=== PATIENT | male | born 1960 | race Caucasian/White ===

== ENCOUNTER 2022-06-25 09:49 | Inpatient (IN) ==
[2022-06-25] MEDS ORDERED: KETOROLAC 30 MG/ML VIAL IV ONE (10:13)
[2022-06-25] MEDS ORDERED: 0.9 % SODIUM CHLORIDE 1,000 ML IV ONE (10:13)
--- NOTE | 2022-06-25 10:16 | Emergency Department Note ---
Skin/Abscess/FB HPI General Chief complaint: Skin/Abscess/Rash Stated complaint: leg infection Time Seen by Provider: 06/25/22 10:08 Source: patient Mode of arrival: ambulatory Limitations: no limitations History of Present Illness HPI Narrative: Narrative: Patient presents ED with complaints of right lower extremity redness x1 week. He reports pain that he rates 7/10. States that the redness has grown over the last couple days. He denies fever, chills, nausea, vomiting, extremity weakness, extremity numbness, lack of sensation lower extremity, pain in his calf area, pain behind his knee. Patient denies any other alleviating or aggravating factors. Related Data Allergies Allergy/AdvReac Type Severity Reaction Status Date / Time No Known Drug Allergies Allergy Verified 06/25/22 10:01 Review of Systems ROS ROS Narrative: Narrative: All systems ED: reviewed and negative except as stated. [facility] Narrative Patient History Narrative: Narrative: Medical/Surgical/Family History All Active Problems (Updated 06/25/22 @ 12:42 by Rashel Mitchell DO) Sepsis (Acute) Cellulitis of leg, right (Acute) Acute hypotension (Acute) Social History Smoking Status: Never smoker Exam Narrative Narrative: Narrative: General Limitations: no limitations General appearance: Absent in distress ENT ENT: Present normal oropharynx and mucous membranes moist Respiratory Respiratory: Present normal lung sounds bilaterally; Absent respiratory distress Cardiovascular Cardiovascular: Present regular rate and normal rhythm Adbominal Abdominal: Present soft; Absent tenderness Extremities Extremities: Present normal capillary refill Expanded Lower Extremity Leg image: 1. Erythema, warmth and tenderness to palpation with no obvious fluctuance or discharge Neurological Neurological: Present alert and oriented X3 Psychiatric Psychiatric: Present normal affect and normal mood Skin Skin: Present warm (WNL) and intact Course Course Course Narrative: Patient was evaluated for right lower extremity pain and redness. Physical exam consistent with cellulitis of the right lower extremity. X-rays were obtained of the right lower extremity with images reviewed myself to rule out osteomyelitis and it was negative for any acute bony abnormality. Patient was found to be hypotensive upon arrival. Lactic acid was elevated greater than 4. Patient was bolused IV fluids. He was given some IV Toradol and morphine for his discomfort. Chest x-ray obtained with image reviewed myself no acute c ardiopulmonary finding. Patient's white cell count was elevated and he was tachycardic upon arrival as well as hypotensive so he does meet sepsis criteria. Blood cultures were obtained the patient was given IV vancomycin and Zosyn. Due to patient being septic and hypotensive recommended be admitted to hospital for antibiotic treatment and IV fluids. Case was discussed with hospitalist who is graciously excepted patient to be admitted to the hospital. Plan of care was discussed with patient expressed verbal understanding and agreement. Consultations Consultation #1: Case discussed with hospitalist, Dr. Byers, who is graciously excepted patient to the hospital Time: 13:00 Vital Signs Vital signs: Vital Signs Temperature 97.1 F 06/25/22 09:57 Pulse Rate 92 H 06/25/22 09:57 Respiratory Rate 18 06/25/22 09:57 Blood Pressure 87/44 06/25/22 09:57 Pulse Oximetry (%) 97 06/25/22 09:57 Oxygen Delivery Method 06/25/22 09:57 Temperature 97.1 F 06/25/22 09:57 Pulse Rate 99 H 06/25/22 12:29 Respiratory Rate 18 06/25/22 09:57 Blood Pressure 92/57 06/25/22 12:01 Pulse Oximetry (%) 97 06/25/22 12:29 Oxygen Delivery Method 06/25/22 11:31 MDM MDM Narrative Medical decision making narrative: Narrative: Differential Diagnosis Differential Diagnosis: Sepsis, cellulitis, osteomyelitis Medical Records Medical records reviewed: Yes I reviewed the patient's medical records. Lab Data Lab results reviewed: Yes I reviewed the patient's lab results. Result diagrams: 06/25/22 10:20 Labs: Lab Results 06/25/22 06/25/22 06/25/22 Range/Units 10:20 10:24 10:24 WBC 21.9 H (4.5-11.0) K/mcL RBC 4.95 (4.63-6.08) M/mcL Hgb 16.7 (13.7-17.5) g/dL Hct 47.1 (40.1-51.0) % POC Hct 50.0 (41-55) MCV 95.2 (80.0-100.0) fL MCH 33.7 (26.0-34.0) pg MCHC 35.5 (31.0-36.0) g/dL RDW 11.7 (11.5-14.5) % Plt Count 115 L (140-440) K/mcL MPV 11.5 (8.8-12.5) fL Immature Gran % (Auto) 7.8 H (0.0-0.5) % Neut % (Auto) 81.8 H (38.0-78.0) % Lymph % (Auto) 2.2 L (15.5-49.0) % [place] % (Auto) 6.9 (1.0-12.0) % Eos % (Auto) 1.1 (0.0-7.0) % Baso % (Auto) 0.2 (0.0-2.0) % Lymph # (Auto) 0.49 L (1.50-4.80) K/mcL [place] # (Auto) 1.52 H (0.10-0.90) K/mcL Eos # (Auto) 0.25 (0.00-0.70) K/mcL Baso # (Auto) 0.05 (0.00-0.30) K/mcL Immature Gran # 1.72 H (0.00-0.05) K/mcl Absolute Neutrophils 17.91 H (1.80-8.00) K/mcL POC VBG pH 7.36 (7.32-7.42) POC VBG pCO2 at Temp 41.6 (41-51) POC VBG pO2 20 L (25-40) POC VBG HCO3 23.4 L (24-28) POC VBG Total CO2 25.0 (25-29) POC Venous O2 Sat 29.0 L (40-70) POC VBG Base Excess -2.0 (-2-2) VBG Lactic Acid 4.1 H* (0.5-2) POC Sodium 134 (133-145) POC Potassium 3.6 (3.3-5.1) POC Chloride 101 (96-108) POC Total CO2 24.0 (22-30) POC BUN 36 H (6-20) POC Creatinine 1.8 H (0.6-1.2) POC Glucose 166 H (70-105) POC WB Ioniz Calcium 1.01 L (1.16-1.32) Radiology Data Radiology results reviewed: Yes I reviewed the patient's radiology results. Radiology results narrative: X-ray of the right lower extremity obtained with image reviewed myself, agree with radiologist interpretation Chest x-ray obtained with image reviewed myself, I agree with radiologist interpretation EKG Data EKG #1: EKG attestation: Yes I reviewed and interpreted this EKG. 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
[2022-06-25 10:28] LABS: POC Calcium, Ionized 1.01 (1.16-1.32); POC Creatinine 1.8 (0.6-1.2); POC Potassium 3.6 (3.3-5.1)
[2022-06-25] MEDS ORDERED: 0.9 % SODIUM CHLORIDE 2,260 ML IV ONE (10:30)
[2022-06-25] MEDS ORDERED: SODIUM CHLORIDE IV ONE (10:48)
[2022-06-25 11:05] LABS: Basophils # (Auto) 0.05 K/mcL (0.00-0.30); Basophils % (Auto) 0.2 % (0.0-2.0); Eosinophils # (Auto) 0.25 K/mcL (0.00-0.70); Eosinophils % (Auto) 1.1 % (0.0-7.0); Hematocrit 47.1 % (40.1-51.0); Hemoglobin 16.7 g/dL (13.7-17.5); Lymphocytes # (Auto) 0.49 K/mcL (1.50-4.80); Lymphocytes % (Auto) 2.2 % (15.5-49.0); Mean Cell Volume 95.2 fL (80.0-100.0); Mean Corpuscular HGB Conc 35.5 g/dL (31.0-36.0); Mean Platelet Volume 11.5 fL (8.8-12.5); Monocytes # (Auto) 1.52 K/mcL (0.10-0.90); Monocytes % (Auto) 6.9 % (1.0-12.0); Platelet Count 115 K/mcL (140-440); RBC 4.95 M/mcL (4.63-6.08); Red Cell Distribution Width 11.7 % (11.5-14.5); WBC 21.9 K/mcL (4.5-11.0)
--- NOTE | 2022-06-25 11:05 | XRay Report ---
HISTORY: Cellulitis right lower leg, evaluate for osteomyelitis FINDINGS: There is a focal zone of mature cortical thickening along the medial side of the proximal shaft of the tibia. There is no associated bone erosion. This may be from prior injury. No periosteal elevation or bone erosion are present. The bones are normally mineralized. There is no fracture or destructive bone lesion. There are multiple calcified phleboliths in the calf. There is no gas in the soft tissues. IMPRESSION: No evidence of osteomyelitis Interpreted and Authenticated by: Terrence Ma 06/25/22
[2022-06-25] MEDS ORDERED: PIPERACILLIN SODIUM/TAZOBACTAM 3.375 GM in DEXTROSE 5% IN WATER 50 ML IV ONE (11:50)
[2022-06-25] MEDS ORDERED: VANCOMYCIN PER PHARMACY IV ONE (11:50)
[2022-06-25] MEDS ORDERED: fentaNYL 100 MCG/2 ML VIAL IV ONE (11:52)
[2022-06-25 11:56] LABS: Neutrophils % (Auto) 81.8 % (38.0-78.0)
[2022-06-25] MEDS ORDERED: VANCOMYCIN 1,500 MG in 0.9 % SODIUM CHLORIDE 500 ML IV ONE (12:15)
[2022-06-25] MEDS: 0.9 % SODIUM CHLORIDE 1,000 ML IV SCH ×2 (13:37→21:27)
[2022-06-25] MEDS ORDERED: SENNOSIDES 1 TABLET PO PRN (14:09)
[2022-06-25] MEDS ORDERED: LACTULOSE 20 GM/30 ML ORAL.SOL PO PRN (14:09)
[2022-06-25] MEDS ORDERED: ONDANSETRON 4 MG/2 ML VIAL IV PRN (14:09)
[2022-06-25] MEDS: LACTATED RINGERS 1,000 ML IV SCH ×2 (14:13→22:17)
--- NOTE | 2022-06-25 14:15 | Internal Med History&Physical ---
HPI History of Present Illness Patient information: Note initiated : 06/25/22 at 2:11 pm Service Date, if different from initiated Date: [] Patient: Jaxon Gross a 62 y/o M admitted on 06/25/22 for leg infection. Chief Complaint: [RLE pain, swelling] Chief complaint: RLE pain, cellulitis History of present illness: Mr. Gross is a 62 year old M with no significant past medical history presents to the hospital with 1 week of worsening right lower extremity pain, erythema and swelling. The patient states that he went to urgent care clinic last Friday and was diagnosed with suspected shingles as they may have seen crusting vesicles. He was not prescribed antiviral or antibiotic therapy. The patient states that he continued to experience erythema, swelling and pain which he believed was worsening. The site was near the ankle around the medial calf area. The patient was quite lethargic however was unable to sleep most days due to severe pain. The patient has not been eating or drinking much. He decided to come to the ER for further management and evaluation. On arrival he was hemodynamically tenuous and afebrile. He was found to have a heart rate of 129 and a blood pressure as low as 87/68. In terms of his lab work, his white blood cell count was 22,000, lactic acid was 4.1, and creatinine was 1.8. The hospitalist service was asked admit the patient for further management and evaluation of his sepsis due to right lower extremity cellulitis. Review of Systems All systems: reviewed and no additional remarkable complaints except as stated Constitutional Constitutional: Present as per HPI EENT Eyes: Present as per HPI; Absent blurry vision Cardiovascular Cardiovascular: Present as per HPI; Absent chest pain, dyspnea, dyspnea on exertion, leg edema or palpatations Respiratory Respiratory: Present as per HPI; Absent cough, dyspnea, dyspnea on exertion, wheezing or stridor Gastrointestinal Gastrointestinal: Present as per HPI; Absent abdominal pain, diarrhea, dysphagia, hematemesis, melena, nausea or vomiting Musculoskeletal Musculoskeletal: Present as per HPI; Absent joint swelling, limited range of motion, muscle cramps, muscle weakness or myalgias Integumentary Integumentary: Present as per HPI; Absent erythema, new lesions, rash or wounds Neurological Neurological: Present as per HPI; Absent abnormal gait, behavioral changes, focal weakness, headache(s), loss of vision, numbness, sensory deficit or syncope Endocrine Endocrine: Absent change in body appearance, fatigue or heat intolerance Hematologic/Lymphatic Hematologic/Lymphatic: Present as per HPI PFSH PFSH All Active Problems (Updated 06/25/22 @ 14:19 by Karon Byers MD) Hyperglycemia (Acute) Lactic acidosis (Acute) SVETLANA (acute kidney injury) (Acute) Sepsis (Acute) Cellulitis of leg, right (Acute) Acute hypotension (Acute) Social History smoking status: Never smoker MEDS/ALLERGIES Home Medications and Allergies Home Medications Medication Instructions Recorded Confirmed Type ibuprofen 200 mg capsule 800 mg PO Q8H PRN Pain 06/25/22 06/25/22 History Allergies Allergy/AdvReac Type Severity Reaction Status Date / Time No Known Drug Allergies Allergy Verified 06/25/22 10:01 EXAM Constitutional Vitals: Temp Pulse Resp BP Pulse Ox O2 Del Method 97.1 F 99 H 18 92/57 97 06/25/22 09:57 06/25/22 12:29 06/25/22 09:57 06/25/22 12:01 06/25/22 12:29 06/25/22 11:31 General appearance: average body habitus Head Head exam: Present atraumatic, normal inspection and normocephalic Eye Eye exam: Present EOMI, normal appearance and PERRL; Absent conjunctival injection ENT ENT exam: Present normal exam; Absent mucous membranes dry Neck Neck exam: Present full ROM; Absent lymphadenopathy Respiratory Respiratory exam: Present normal respiratory exam and CTAB; Absent decreased diomedes ath sounds, respiratory distress or wheezes Cardiovascular Cardiovascular exam: Present normal rate and rhythm and RRR; Absent JVD GI/Abdominal GI/Abdominal exam: Present normal bowel sounds and soft; Absent diminished bowel sounds, distended, guarding, mass, rebound or tenderness Neurological Exam Neurological exam: Present alert, CN II-XII intact and oriented X3 Psychiatric Psychiatric exam: Present normal affect and normal mood Skin Skin exam: Present intact and warm; Absent erythema, pallor, petechiae or rash DATA Data Completed and Pending Labs: Labs from last 24 hours 06/25/22 06/25/22 06/25/22 10:24 10:24 10:20 WBC 21.9 H RBC 4.95 Hgb 16.7 Hct 47.1 POC Hct 50.0 MCV 95.2 MCH 33.7 MCHC 35.5 RDW 11.7 Plt Count 115 L MPV 11.5 Immature Gran % (Auto) 7.8 H Neut % (Auto) 81.8 H Lymph % (Auto) 2.2 L [place] % (Auto) 6.9 Eos % (Auto) 1.1 Baso % (Auto) 0.2 Lymph # (Auto) 0.49 L [place] # (Auto) 1.52 H Eos # (Auto) 0.25 Baso # (Auto) 0.05 Immature Gran # 1.72 H Absolute Neutrophils 17.91 H POC VBG pH 7.36 POC VBG pCO2 at Temp 41.6 POC VBG pO2 20 L POC VBG HCO3 23.4 L POC VBG Total CO2 25.0 POC Venous O2 Sat 29.0 L POC VBG Base Excess -2.0 VBG Lactic Acid 4.1 H* POC Sodium 134 POC Potassium 3.6 POC Chloride 101 POC Total CO2 24.0 POC BUN 36 H POC Creatinine 1.8 H POC Glucose 166 H POC WB Ioniz Calcium 1.01 L A/P Assessment and plan (1) Sepsis: Status: Acute Qualifiers: Sepsis acute organ dysfunction status: without acute organ dysfunction Sepsis type: sepsis due to unspecified organism Qualified Code(s): A41.9 - Sepsis, unspecified organism (2) Cellulitis of leg, right: Status: Acute (3) Acute hypotension: Status: Acute (4) SVETLANA (acute kidney injury): Status: Acute (5) Lactic acidosis: Status: Acute (6) Hyperglycemia: Status: Acute Sepsis Sepsis Identified: Yes Time Zero: In ER Narrative A/P Narrative: The patient's right lower extremity will be demarcated and we will follow her closely. At this time we will continue aggressive IV fluid resuscitation and repeat as lactic acid. The patient was given a dose of vancomycin in the ER and we will start Zosyn. We will send for an MRSA screen and check blood cultures. The patient will be monitored on telemetry. Time Spent With Patient Time: Total time spent is greater than 50% in coordination of care (as documented) at patient's floor/unit and/or counseling patient: Initial: Total time with patient: 55 - 74 minutes
[2022-06-25] MEDS: 0.9 % SODIUM CHLORIDE 10 ML SYRINGE IV SCH ×2 (14:23→22:00)
--- NOTE | 2022-06-25 15:47 | XRay Report ---
HISTORY: Sepsis FINDINGS: There is a vague streaky opacity above the left diaphragm which could be a small area of pneumonia. Remainder of the lung chowdhury are clear. The heart size is normal. No adenopathy is detected. There is no pleural effusion. IMPRESSION: Small left lower lobe infiltrate Interpreted and Authenticated by: Terrence Ma 06/25/22
[2022-06-25] MEDS: oxyCODONE/APAP 5/325MG TABLET PO PRN ×2 (17:10→21:02)
[2022-06-25 17:20] LABS: Blood Urea Nitrogen 37 mg/dL (8-23); Calcium 7.9 mg/dL (8.6-10.4); Carbon Dioxide 24 mmol/L (22-30); Chloride 99 mmol/L (96-108); Glomerular Filtration Rate 58; Glucose 182 mg/dL (70-105)
[2022-06-25] MEDS: ACETAMINOPHEN 325 MG TABLET PO PRN (19:46)
[2022-06-25] MEDS: DOCUSATE SODIUM 100 MG CAPSULE PO SCH (19:52)
[2022-06-25] MEDS: PIPERACILLIN SODIUM/TAZOBACTAM 3.375 GM in DEXTROSE 5% IN WATER 50 ML IV SCH (21:26)
[2022-06-25 23:22] LABS: Blood Urea Nitrogen 37 mg/dL (8-23); Calcium 7.6 mg/dL (8.6-10.4); Carbon Dioxide 22 mmol/L (22-30); Chloride 100 mmol/L (96-108); Glomerular Filtration Rate 58; Glucose 183 mg/dL (70-105)
[2022-06-26] MEDS: LACTATED RINGERS 1,000 ML IV SCH ×4 (04:47→21:34)
[2022-06-26] MEDS: oxyCODONE/APAP 5/325MG TABLET PO PRN ×3 (04:48→23:37)
[2022-06-26] MEDS: PIPERACILLIN SODIUM/TAZOBACTAM 3.375 GM in DEXTROSE 5% IN WATER 50 ML IV SCH ×3 (05:39→21:26)
[2022-06-26] MEDS: 0.9 % SODIUM CHLORIDE 10 ML SYRINGE IV SCH ×3 (05:40→23:57)
[2022-06-26 06:06] LABS: Erythrocyte Sedimentation Rate > 130 mm/hr (0-20)
[2022-06-26 06:15] LABS: ALT/SGPT 160 U/L (<40); AST/SGOT 43 U/L (<40); Albumin/Globulin Ratio 0.7 (1.0-2.3); Alkaline Phosphatase 156 U/L (39-117); Bilirubin,Direct 1.7 mg/dL (<0.3); Bilirubin,Total 1.9 mg/dL (0.1-1.0); Blood Urea Nitrogen 32 mg/dL (8-23); Calcium 7.5 mg/dL (8.6-10.4); Carbon Dioxide 21 mmol/L (22-30); Chloride 101 mmol/L (96-108); Globulin 2.9 gm/dL (2.2-3.7); Glomerular Filtration Rate 49; Glucose 140 mg/dL (70-105); Lactate Dehydrogenase 144 U/L (135-225); Phosphorous 1.8 mg/dL (2.5-4.5); Triglycerides 186 mg/dL (<150); Uric Acid 4.8 mg/dL (2.5-8.0)
[2022-06-26 06:47] LABS: Basophils # (Auto) 0.12 K/mcL (0.00-0.30); Basophils % (Auto) 0.6 % (0.0-2.0); Eosinophils # (Auto) 0.28 K/mcL (0.00-0.70); Eosinophils % (Auto) 1.5 % (0.0-7.0); Hemoglobin 14.4 g/dL (13.7-17.5); Lymphocytes # (Auto) 0.62 K/mcL (1.50-4.80); Lymphocytes % (Auto) 3.3 % (15.5-49.0); Mean Corpuscular HGB Conc 35.1 g/dL (31.0-36.0); Mean Platelet Volume 11.9 fL (8.8-12.5); Monocytes # (Auto) 0.83 K/mcL (0.10-0.90); Monocytes % (Auto) 4.5 % (1.0-12.0); Neutrophils % (Auto) 88.3 % (38.0-78.0); Platelet Count 75 K/mcL (140-440); RBC 4.27 M/mcL (4.63-6.08); Red Cell Distribution Width 12.3 % (11.5-14.5); WBC 18.6 K/mcL (4.5-11.0)
[2022-06-26] MEDS: ENOXAPARIN 40 MG/0.4 ML SYRINGE SQ SCH (08:36)
[2022-06-26] MEDS: DOCUSATE SODIUM 100 MG CAPSULE PO SCH ×3 (08:36→21:27)
--- NOTE | 2022-06-26 10:16 | Internal Med Progress Note ---
SUBJECTIVE Subjective Patient information: Note initiated : 06/26/22 at 10:13 am Service Date, if different from initiated Date: [] Patient: Jaxon Gross 62 y/o M admitted on 06/25/22 for leg infection. Chief Complaint: [RLE swelling, erythema, pain] Principal diagnosis: Sepsis Interval history: The patient was resting comfortably in bed. He was eating breakfast. He was alert, oriented and fully conversant. He states that his lower extremity pain has improved. Discussed the case with the RN who was present at the bedside. Constitutional Vitals: Vital Signs Temp Pulse Resp BP Pulse Ox O2 Del Method 99.8 F H 103 H 23 H 96/65 99 06/26/22 07:19 06/26/22 09:01 06/26/22 09:01 06/26/22 09:01 06/26/22 09:01 06/26/22 09:01 Period Temp Pulse Resp BP Sys/Nj Pulse Ox O2 Del Method O2 Flow Rate Last 24 Hr 97.9 F-101.2 F 48-129 14-27 75-129/49-71 90-100 Room Air-Room Air Intake and Output 06/25/22 06/26/22 06/26/22 19:59 03:59 11:59 Intake Total 1952 1666 2080 Output Total 260 475 Balance 1693 1667 1605 Weight 81.647 kg 83.779 kg Intake & Output: Intake & Output 06/25/22 06/26/22 06/26/22 19:59 03:59 11:59 Intake Total 1952 1667 2080 Output Total 260 475 Balance 1693 1667 1605 Weight 81.647 kg 83.779 kg Intake: IV 2973 227 6266 Sodium Chloride 0.9% 1,260 ml @ 1260 Wide Open IV BOLUS ONE Rx#: [id number] Lactated Ringers 1,000 ml @ 150 058 162 4844 mls/hr IV .Q6H40M SISSY Rx#: [id number] Zosyn 3.375 gm In Dextrose 5% 50 50 50 in Water 50 ml @ 100 mls/hr IV Q8H SISSY Rx#:[id number] Vancomycin 1,500 mg In Sodium 500 Chloride 0.9% 500 ml @ 333.3 mls/hr IV ONCE ONE Rx#: [id number] Oral 760 480 Output: Void Amount 260 475 Other: Meal Dinner Breakfast Percent of Meal Consumed 50% 100% Feeding Ability Independent Urine Appearance Clear Clear Urine Color Dark Yellow Dark Lisa Head Head exam: Present atraumatic and normal inspection Eye Eye exam: Present normal appearance ENT ENT exam: Present mucous membranes moist, normal exam and normal external ear exam Neck Neck exam: Present normal inspection Respiratory Respiratory exam: Present normal respiratory exam Cardiovascular Cardiovascular exam: Present normal rate and rhythm GI/Abdominal GI/Abdominal exam: Present normal bowel sounds Back Exam Back exam: Present normal inspection Neurological Exam Neurological exam: Present alert and oriented X3 Skin Skin exam: Present intact and warm OBJ DATA Labs CBC & Chem 7: 06/26/22 05:11 06/26/22 05:11 Labs: Abnormal Lab Results 06/26/22 06/26/22 06/25/22 05:11 05:11 22:16 WBC 18.6 H RBC 4.27 L Plt Count 75 L Immature Gran % (Auto) 1.8 H Neut % (Auto) 88.3 H Lymph % (Auto) 3.3 L Lymph # (Auto) 0.62 L [place] # (Auto) Immature Gran # 0.33 H Absolute Neutrophils 16.39 H ESR > 130 H POC VBG pO2 POC VBG HCO3 POC VBG Total CO2 POC Venous O2 Sat POC VBG Base Excess VBG Lactic Acid Sodium 131 L 130 L Potassium 3.1 L Carbon Dioxide 21 L POC BUN BUN 32 H 37 H Creatinine 1.5 H 1.3 H POC Creatinine Glucose 140 H 183 H POC Glucose Calcium 7.5 L 7.6 L POC WB Ioniz Calcium Phosphorus 1.8 L Total Bilirubin 1.9 H Direct Bilirubin 1.7 H GGT 197 H AST 43 H ALT 160 H Alkaline Phosphatase 156 H Total Protein 4.9 L Albumin 2.0 L Albumin/Globulin Ratio 0.7 L Triglycerides 186 H 06/25/22 06/25/22 06/25/22 14:22 12:26 10:24 WBC RBC Plt Count Immature Gran % (Auto) Neut % (Auto) Lymph % (Auto) Lymph # (Auto) [place] # (Auto) Immature Gran # Absolute Neutrophils ESR POC VBG pO2 20 L POC VBG HCO3 22.6 L POC VBG Total CO2 24.0 L POC Venous O2 Sat 30.0 L POC VBG Base Excess -3.0 L VBG Lactic Acid 2.3 H 2.2 H Sodium Potassium Carbon Dioxide POC BUN 36 H BUN 37 H Creatinine 1.3 H POC Creatinine 1.8 H Glucose 182 H POC Glucose 166 H Calcium 7.9 L POC WB Ioniz Calcium 1.01 L Phosphorus Total Bilirubin Direct Bilirubin GGT AST ALT Alkaline Phosphatase Total Protein Albumin Albumin/Globulin Ratio Triglycerides 06/25/22 06/25/22 10:24 10:20 WBC 21.9 H RBC Plt Count 115 L Immature Gran % (Auto) 7.8 H Neut % (Auto) 81.8 H Lymph % (Auto) 2.2 L Lymph # (Auto) 0.49 L [place] # (Auto) 1.52 H Immature Gran # 1.72 H Absolute Neutrophils 17.91 H ESR POC VBG pO2 20 L POC VBG HCO3 23.4 L POC VBG Total CO2 POC Venous O2 Sat 29.0 L POC VBG Base Excess VBG Lactic Acid 4.1 H* Sodium Potassium Carbon Dioxide POC BUN BUN Creatinine POC Creatinine Glucose POC Glucose Calcium POC WB Ioniz Calcium Phosphorus Total Bilirubin Direct Bilirubin GGT AST ALT Alkaline Phosphatase Total Protein Albumin Albumin/Globulin Ratio Triglycerides Meds: Medications Acetaminophen (Acetaminophen 325 Mg Tablet) 650 mg PO Q6HP PRN; Protocol PRN Reason: Per Pain Protocol/Fever > 101 Last Admin: 06/25/22 19:46 Dose: 650 mg Docusate Sodium (Docusate Sodium 100 Mg Capsule) 100 mg PO BID [facility] Last Admin: 06/26/22 08:36 Dose: Not Given Enoxaparin Sodium (Enoxaparin 40 Mg/0.4 Ml Syringe) 40 mg SQ DAILY [facility] Last Admin: 06/26/22 08:36 Dose: 40 mg Lactated Ringer's (Lactated Ringers) 1,000 mls @ 150 mls/hr IV .Q6H40M [facility] Last Infusion: 06/26/22 08:37 Dose: 100 mls/hr Piperacillin Sod/Tazobactam (Sod 3.375 gm/ Dextrose) 50 mls @ 100 mls/hr IV Q8H [facility]; Protocol Last Infusion: 06/26/22 06:23 Dose: Infused Lactulose (Lactulose 20 Gm/30 Ml Oral.Gilda) 10 gm PO DAILYP PRN PRN Reason: Constipation Ondansetron HCl (Ondansetron 4 Mg/2 Ml Vial) 4 mg IV Q4HP PRN; Protocol PRN Reason: Nausea And Vomiting Oxycodone/Acetaminophen (Oxycodone/Apap 5/325mg Tablet) 1 tab PO Q4HP PRN; Protocol PRN Reason: Per Pain Protocol Last Admin: 06/26/22 04:48 Dose: 1 tab Senna (Sennosides 1 Tablet) 2 tab PO HSP PRN PRN Reason: Constipation Sodium Chloride (0.9 % Sodium Chloride 10 Ml Syringe) 10 ml IV Q8 [facility] Last Admin: 06/26/22 05:40 Dose: 10 ml A/P Assessment and plan (1) Sepsis: Status: Acute Qualifiers: Sepsis acute organ dysfunction status: without acute organ dysfunction Sepsis type: sepsis due to unspecified organism Qualified Code(s): A41.9 - Sepsis, unspecified organism (2) Cellulitis of leg, right: Status: Acute (3) Acute hypotension: Status: Acute (4) SVETLANA (acute kidney injury): Status: Acute (5) Lactic acidosis: Status: Acute (6) Hyperglycemia: Status: Acute Narrative A/P Narrative: The patient's right lower extremity will be demarcated and we will follow her closely. At this time we will continue aggressive IV fluid resuscitation and repeat as lactic acid. The patient was given a dose of vancomycin in the ER and we will start Zosyn. We will send for an MRSA screen and check blood cultures. The patient will be monitored on telemetry. 06/26: In terms of the patient's sepsis, his lactic acid has come down from 4.1- 1.6. The rate of IV fluids will be decreased today. His blood pressure has improved and was 118/63 this morning. He continues to have fevers with a T-max of 101.2. He remains tachycardic. Blood cultures are pending. His white blood cell count has come down slightly to 18.6. Continue vancomycin and cefepime. On examination, the leg appears less edematous, erythematous and does not is tender to touch. It is still quite warm to touch. The patient's SVETLANA is also improving slowly as his creatinine is down to 1.5. Time Spent With Patient Time: Total time spent is greater than 50% in coordination of care (as documented) at patient's floor/unit and/or counseling patient: Subsequent: Total time with patient: 35 - 49 minutes
--- NOTE | 2022-06-26 16:08 | EKG ---
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 Measurements Intervals [place] Rate: 94 P: 62 DC: 190 QRS: -46 QRSD: 102 T: 79 QT: 373 QTc: 467 Interpretive Statements Sinus rhythm Delayed R wave progression Electronically Signed On 06-26-2022 16:08:20 PST by Rich Mo D.O. /[id number]/[email or web address]/[id number]
[2022-06-26] MEDS: ACETAMINOPHEN 325 MG TABLET PO PRN (16:36)
[2022-06-26] MEDS ORDERED: morphine 2 MG/ML VIAL ONE (19:01)
[2022-06-26] MEDS: morphine 2 MG/ML VIAL IV ONE ×2 (19:03→19:12)
[2022-06-26] MEDS ORDERED: DIGOXIN 500 MCG/2 ML AMPUL IV ONE ×2 (19:18→19:34)
[2022-06-26] MEDS ORDERED: METOPROLOL TARTRATE 5 MG/5 ML VIAL IV ONE ×4 (19:18→23:56)
[2022-06-26 20:33] LABS: Phosphorous 1.3 mg/dL (2.5-4.5)
[2022-06-26] MEDS ORDERED: METOPROLOL SUCCINATE 25 MG TAB.XL.24H PO ONE (21:18)
[2022-06-26] MEDS ORDERED: SODIUM PHOSPHATE 30 MMOL in DEXTROSE 5% IN WATER 500 ML IV ONE (21:18)
[2022-06-26] MEDS: CLINDAMYCIN 150 MG CAPSULE PO SCH (21:26)
[2022-06-27] MEDS ORDERED: DIGOXIN 500 MCG/2 ML AMPUL IV ONE ×2 (01:43→01:51)
[2022-06-27] MEDS: LACTATED RINGERS 1,000 ML IV SCH (04:29)
[2022-06-27] MEDS: CLINDAMYCIN 150 MG CAPSULE PO SCH (05:30)
[2022-06-27] MEDS: 0.9 % SODIUM CHLORIDE 10 ML SYRINGE IV SCH ×3 (05:30→20:36)
[2022-06-27] MEDS: PIPERACILLIN SODIUM/TAZOBACTAM 3.375 GM in DEXTROSE 5% IN WATER 50 ML IV SCH (05:30)
[2022-06-27] MEDS: oxyCODONE/APAP 5/325MG TABLET PO PRN ×3 (05:30→20:35)
[2022-06-27 06:03] LABS: Basophils # (Auto) 0.11 K/mcL (0.00-0.30); Basophils % (Auto) 0.5 % (0.0-2.0); Eosinophils # (Auto) 0.57 K/mcL (0.00-0.70); Eosinophils % (Auto) 2.7 % (0.0-7.0); Hematocrit 38.3 % (40.1-51.0); Hemoglobin 13.4 g/dL (13.7-17.5); Lymphocytes # (Auto) 1.59 K/mcL (1.50-4.80); Lymphocytes % (Auto) 7.5 % (15.5-49.0); Monocytes # (Auto) 0.64 K/mcL (0.10-0.90); Neutrophils % (Auto) 83.3 % (38.0-78.0); Platelet Count 80 K/mcL (140-440); RBC 4.03 M/mcL (4.63-6.08); Red Cell Distribution Width 12.3 % (11.5-14.5); WBC 21.3 K/mcL (4.5-11.0)
[2022-06-27 06:08] LABS: Blood Urea Nitrogen 32 mg/dL (8-23); Calcium 7.4 mg/dL (8.6-10.4); Carbon Dioxide 22 mmol/L (22-30); Chloride 99 mmol/L (96-108); Glomerular Filtration Rate 53; Glucose 144 mg/dL (70-105)
[2022-06-27] MEDS ORDERED: POTASSIUM CHLORIDE 20 MEQ TABLET PO ONE (07:40)
[2022-06-27] MEDS ORDERED: LIDOCAINE 2% URO-JET 10 ML JEL.PF.APP UR ONE (07:43)
[2022-06-27] MEDS: DOCUSATE SODIUM 100 MG CAPSULE PO SCH ×3 (08:58→21:11)
[2022-06-27] MEDS: ENOXAPARIN 40 MG/0.4 ML SYRINGE SQ SCH (08:59)
[2022-06-27] MEDS: DIGOXIN 125 MCG TABLET PO SCH ×2 (08:59→14:22)
[2022-06-27] MEDS: METOPROLOL SUCCINATE 25 MG TAB.XL.24H PO SCH ×2 (08:59→20:35)
--- NOTE | 2022-06-27 09:22 | Cat Scan Report ---
History: Bacteremia, elevated white blood cell count, leg infection technique: The patient was imaged without contrast in axial plane at 2.5 mm intervals from above the thoracic inlet through the symphysis pubis. Sagittal and coronal reformats were created along with axial MIPS images of the chest. The radiation exposure was limited using dose reduction technology. FINDINGS: CHEST: There are very small bilateral layering pleural effusions. There is moderate consolidation in both lung bases, predominantly involving the posterior basal segments. There are bands of consolidated tissue in the inferior segment lingula and thin linear bands of scar or discoid atelectasis posteriorly in both upper lobes. There is no evidence of an abscess or empyema. There is no emphysema. Trachea and bronchi are normal. The heart size is within normal limits. There is a focal calcification in the left anterior descending coronary artery. Aorta is normal in caliber. Abdomen and pelvis: Evaluation of abdominal organs without contrast is somewhat limited. The liver and spleen are normal in size and homogeneous. The gallbladder appears normal with no calcified stones or thickening of the wall. The bile ducts are nondilated. There is no apparent mass or inflammation the pancreas. The adrenals are normal and symmetric. There is stranding of the perirenal fat bilaterally. The kidneys appear normal, without evidence of mass, cyst stone or hydronephrosis. Right kidney is smaller than the left. This is a chronic stable finding, unchanged from prior ultrasound done in 2005. The bowel pattern is normal without evidence of inflammation or obstruction. There are couple noninflamed diverticula in the sigmoid colon. There is nonspecific stranding of the fat in the region of the paracolic gutters. There is no abscess or ascites. No enlarged lymph nodes are present. Urinary bladder is decompressed by Forrester catheter. Small fat-containing right inguinal hernia seen. There is no entrapment of bowel. Severe degenerative disc disease and arthritis are present throughout the lumbar spine and lower thoracic spine. IMPRESSION: Infiltrates in both lung bases which may be a combination of atelectasis and pneumonia. Very small bilateral pleural effusions. Stranding of the fat in the retroperitoneum. This is nonspecific and may be from prior episodes of inflammation or scar. There is no evidence of acute infection within the abdomen or pelvis. Interpreted and Authenticated by: Terrence Ma 06/27/22
--- NOTE | 2022-06-27 11:47 | Infectious Disease Consult ---
Telemedicine Intake Consent for assessment and treatment to occur via virtual technology obtained from: Patient Location of Provider: Home Patient location: Intensive Care Unit Any recent travel (within the last 21 days)?: No HPI Date of Consult Consult Date: 06/27/22 Requesting physician: Karon Byers Consult Narrative Patient Information: Note initiated : 06/27/22 at 11:45 am Service Date, if different from initiated Date: [] Patient: Jaxon Gross 62 y/o M admitted on 06/25/22 for leg infection. Chief Complaint: [] 62-year-old without insulin past medical history presented to emergency room with 5 days history of right lower extremity swelling, pain. Patient noted some blister and erythema and pain of his right leg above the ankle, fever 1 week ago. He saw his primary care physician who diagnosed him with shingles and give him some steroid. However he worsened and came to the emergency room on 06/25. In the ED he was febrile, tachycardic and hypotensive. Creatinine was 1.8, WBC was 21. Patient was started on Zosyn and clindamycin. Blood culture is now positive for streptococcus pyogenes. Patient remained febrile with WBC initially improved and now worsened. For this reason ID is consulted. Patient at this time has a temperature of 100.8, tachycardic with a flutter. He is on 2 L nasal cannula Chief complaint: Leg pain Reason for consult: Bacteremia cc:: CC: Karon Byers MD Review of Systems All systems: reviewed and no additional remarkable complaints except as stated PFSH PFSH All Active Problems (Updated 06/25/22 @ 14:19 by Karon Byers MD) Hyperglycemia (Acute) Lactic acidosis (Acute) SVETLANA (acute kidney injury) (Acute) Sepsis (Acute) Cellulitis of leg, right (Acute) Acute hypotension (Acute) Social History smoking status: Never smoker MEDS/ALLERGIES Home Medications and Allergies Home Medications Medication Instructions Recorded Confirmed Type ibuprofen 200 mg capsule 800 mg PO Q8H PRN Pain 06/25/22 06/26/22 History melatonin 10 mg PO QHS PRN Insomnia 06/25/22 06/26/22 History prednisone 20 mg tablet 3 tab PO QDAY 06/25/22 06/26/22 History Allergies Allergy/AdvReac Type Severity Reaction Status Date / Time No Known Drug Allergies Allergy Verified 06/26/22 06:45 Physical Examination Vital Signs Vital signs: Temp Pulse Resp BP Pulse Ox O2 Del Method O2 Flow Rate 100.8 F H 78 23 H 104/49 97 2 06/27/22 11:01 06/27/22 11:01 06/27/22 11:01 06/27/22 11:01 06/27/22 11:01 06/27/22 11:01 06/27/22 11:01 Constitutional General appearance: no acute distress Respiratory Effort: normal Cardiovascular Cardiovascular: regular rate and rhythm Extremities Extremities: other (Left leg with 1+ edema. Right neck with 2-3+ edema, erythema mostly on the medial aspect of the leg extending from the heel to the thigh. The erythema has receded from the line drawn in the emergency room. There is necrotic skin on the medial aspect of the leg above the ankle. There is no crepit) Additional Exam Additional exam: Inguinal lymphadenopathy Results Laboratory Findings CBC and BMP: 06/27/22 05:22 06/27/22 05:22 Abnormal lab findings: Abnormal Labs 06/25/22 06/25/22 06/25/22 10:20 10:24 10:24 WBC 21.9 H RBC Hgb Hct Plt Count 115 L Immature Gran % (Auto) 7.8 H Neut % (Auto) 81.8 H Lymph % (Auto) 2.2 L Lymph # (Auto) 0.49 L Braxton # (Auto) 1.52 H Immature Gran # 1.72 H Absolute Neutrophils 17.91 H ESR POC VBG pO2 20 L POC VBG HCO3 23.4 L POC VBG Total CO2 POC Venous O2 Sat 29.0 L POC VBG Base Excess VBG Lactic Acid 4.1 H* Sodium Potassium Carbon Dioxide POC BUN 36 H BUN Creatinine POC Creatinine 1.8 H Glucose POC Glucose 166 H Calcium POC WB Ioniz Calcium 1.01 L Phosphorus Total Bilirubin Direct Bilirubin GGT AST ALT Alkaline Phosphatase Total Protein Albumin Albumin/Globulin Ratio Triglycerides 06/25/22 06/25/22 06/25/22 12:26 14:22 22:16 WBC RBC Hgb Hct Plt Count Immature Gran % (Auto) Neut % (Auto) Lymph % (Auto) Lymph # (Auto) Braxton # (Auto) Immature Gran # Absolute Neutrophils ESR POC VBG pO2 20 L POC VBG HCO3 22.6 L POC VBG Total CO2 24.0 L POC Venous O2 Sat 30.0 L POC VBG Base Excess -3.0 L VBG Lactic Acid 2.2 H 2.3 H Sodium 130 L Potassium 3.1 L Carbon Dioxide POC BUN BUN 37 H 37 H Creatinine 1.3 H 1.3 H POC Creatinine Glucose 182 H 183 H POC Glucose Calcium 7.9 L 7.6 L POC WB Ioniz Calcium Phosphorus Total Bilirubin Direct Bilirubin GGT AST ALT Alkaline Phosphatase Total Protein Albumin Albumin/Globulin Ratio Triglycerides 06/26/22 06/26/22 06/26/22 05:11 05:11 19:39 WBC 18.6 H RBC 4.27 L Hgb Hct Plt Count 75 L Immature Gran % (Auto) 1.8 H Neut % (Auto) 88.3 H Lymph % (Auto) 3.3 L Lymph # (Auto) 0.62 L Braxton # (Auto) Immature Gran # 0.33 H Absolute Neutrophils 16.39 H ESR > 130 H POC VBG pO2 POC VBG HCO3 POC VBG Total CO2 POC Venous O2 Sat POC VBG Base Excess VBG Lactic Acid Sodium 131 L Potassium Carbon Dioxide 21 L POC BUN BUN 32 H Creatinine 1.5 H POC Creatinine Glucose 140 H POC Glucose Calcium 7.5 L POC WB Ioniz Calcium Phosphorus 1.8 L 1.3 L Total Bilirubin 1.9 H Direct Bilirubin 1.7 H GGT 197 H AST 43 H ALT 160 H Alkaline Phosphatase 156 H Total Protein 4.9 L Albumin 2.0 L Albumin/Globulin Ratio 0.7 L Triglycerides 186 H 06/27/22 06/27/22 05:22 05:22 WBC 21.3 H RBC 4.03 L Hgb 13.4 L Hct 38.3 L Plt Count 80 L Immature Gran % (Auto) 3.0 H Neut % (Auto) 83.3 H Lymph % (Auto) 7.5 L Lymph # (Auto) Braxton # (Auto) Immature Gran # 0.64 H Absolute Neutrophils 17.73 H ESR POC VBG pO2 POC VBG HCO3 POC VBG Total CO2 POC Venous O2 Sat POC VBG Base Excess VBG Lactic Acid Sodium 131 L Potassium 3.0 L Carbon Dioxide POC BUN BUN 32 H Creatinine 1.4 H POC Creatinine Glucose 144 H POC Glucose Calcium 7.4 L POC WB Ioniz Calcium Phosphorus Total Bilirubin Direct Bilirubin GGT AST ALT Alkaline Phosphatase Total Protein Albumin Albumin/Globulin Ratio Triglycerides Microbiology: Microbiology 06/25/22 10:28 Blood Blood Culture - Preliminary 06/25/22 10:25 Blood Blood Culture - Preliminary Strep pyogenes (grp a) 06/25/22 14:10 Nose - Both Right and Left MRSA (PCR) - Final A/P Sepsis Sepsis Identified: Yes Time Zero: admission Narrative A/P Narrative: 62-year-old with no past medical history presented now with sepsis due to Streptococcus pyogenes bacteremia, cellulitis. Concern for possible fasciitis. Change antibiotic to penicillin and clindamycin IV. CT of the right leg stat. Consider surgical consultation Time Spent With Patient Time: Total time spent is greater than 50% in coordination of care (as documented) at patient's floor/unit and/or counseling patient: Initial: Total time with patient: Less than 40 minutes
[2022-06-27] MEDS: ACETAMINOPHEN 325 MG TABLET PO PRN ×2 (12:12→20:37)
[2022-06-27] MEDS ORDERED: IOPAMIDOL 100 ML BOTTLE IV ONE (12:41)
--- NOTE | 2022-06-27 12:51 | Cat Scan Report ---
History: Infection right lower leg, evaluate for fasciitis TECHNIQUE: Following injection of intravenous nonionic contrast the patient was imaged from above the knee to the bottom of the foot at 2.5 mm intervals. Sagittal and coronal reformats were created. The radiation exposure was limited using dose reduction technology. FINDINGS: There is moderate edema/inflammation adjacent to the deep fascia along the anterior and medial side of the right calf. There is thickening of the overlying skin. This extends from along the medial side of the knee to below the level of the ankle. No abscess is present. The underlying muscles appear normal without evidence of edema or myositis. There are a few varicosities along the medial side of the vazquez. Below the level of the knee the greater saphenous vein is thrombosed. Above the knee the saphenous vein is patent. There is no evidence of osteomyelitis. There is a focal area of mature cortical thickening along the medial side of the proximal tibia. This was seen on the recent x-ray and is unchanged. There is a small joint effusion in the knee. The ankle is noninflamed. IMPRESSION: Moderate cellulitis and edema along the medial side of the right lower leg with associated thrombophlebitis of the distal portion of the greater saphenous vein. No evidence of abscess or osteomyelitis No evidence of compartment syndrome Interpreted and Authenticated by: Terrence Ma 06/27/22
[2022-06-27] MEDS: CLINDAMYCIN IN 0.9 % SOD CHLOR 600 MG/50 ML BAG IV SCH ×2 (12:59→21:30)
[2022-06-27] MEDS ORDERED: CLINDAMYCIN 600 MG/50 ML NS BAG IV SCH (13:00)
[2022-06-27] MEDS: PENICILLIN G POTASSIUM 4,000,000 UNIT in 0.9 % SODIUM CHLORIDE 50 ML IV SCH ×3 (13:00→20:34)
[2022-06-27] MEDS ORDERED: POTASSIUM CHLORIDE 20 MEQ TABLET PO SCH (13:35)
--- NOTE | 2022-06-27 13:35 | Internal Med Progress Note ---
SUBJECTIVE Subjective Patient information: Note initiated : 06/27/22 at 1:31 pm Service Date, if different from initiated Date: [] Patient: Jaxon Gross 62 y/o M admitted on 06/25/22 for leg infection. Chief Complaint: [RLE swelling, erythema] Principal diagnosis: Sepsis Interval history: Overnight, the patient had issues with tachyarrhythmia and was found to have atrial fibrillation with RVR. He was loaded with digoxin, and given several doses of Lopressor 5 mg IV. He was given one-time dose of Toprol-XL 12.5 mg p .o. x1. This morning, he was resting comfortably in bed. He was pleasant, calm and cooperative. He had no active complaints. RN was present at the bedside to discuss plan of care. Constitutional Vitals: Vital Signs Temp Pulse Resp BP Pulse Ox O2 Del Method O2 Flow Rate 101.2 F H 152 H 20 106/52 94 2 06/27/22 13:01 06/27/22 12:46 06/27/22 13:01 06/27/22 13:01 06/27/22 13:01 06/27/22 13:01 06/27/22 13:01 Period Temp Pulse Resp BP Sys/Nj Pulse Ox O2 Del Method O2 Flow Rate Last 24 Hr 97.4 F-101.4 F 50-161 13-33 86-128/46-76 92-100 Nasal Cannula- Room Air 1.5-2 Intake and Output 06/27/22 06/27/22 06/27/22 03:59 11:59 19:59 Intake Total 1085 1252 Output Total 300 530 65 Balance 785 722 -65 Weight 83.263 kg Intake & Output: Intake & Output 06/27/22 06/27/22 06/27/22 03:59 11:59 19:59 Intake Total 1085 1252 Output Total 300 530 65 Balance 785 722 -65 Weight 83.263 kg Intake: IV 885 1252 Lactated Ringers 1,000 ml @ 150 835 692 mls/hr IV .[id number] [facility] Rx#: [id number] Zosyn 3.375 gm In Dextrose 5% 50 50 in Water 50 ml @ 100 mls/hr IV Q8H [facility] Rx#:[id number] Sodium Phosphate 30 Mmol In 510 Dextrose 5% in Water 500 ml @ 85 mls/hr IV ONCE ONE Rx#: [id number] Oral 200 Output: Urine Catheter Amount 380 65 Void Amount 300 150 Other: Urine Appearance Clear Clear Uretheral (Forrester) Clear Urine Color Dark Yellow Dark Yellow Uretheral (Forrester) Dark Yellow Blood Tinged Urine Odor Normal Uretheral (Forrester) Normal Stool Size Small Small Stool Color Brown Brown Stool Consistency Soft Head Head exam: Present atraumatic and normal inspection Eye Eye exam: Present normal appearance ENT ENT exam: Present mucous membranes moist, normal exam and normal external ear exam Neck Neck exam: Present normal inspection Respiratory Respiratory exam: Present normal respiratory exam Cardiovascular Cardiovascular exam: Present irregular rhythm and tachycardia GI/Abdominal GI/Abdominal exam: Present normal bowel sounds Back Exam Back exam: Present normal inspection Neurological Exam Neurological exam: Present alert and oriented X3 Skin Skin exam: Present intact and warm OBJ DATA Labs CBC & Chem 7: 06/27/22 05:22 06/27/22 05:22 Labs: Abnormal Lab Results 06/27/22 06/27/22 06/26/22 05:22 05:22 19:39 WBC 21.3 H RBC 4.03 L Hgb 13.4 L Hct 38.3 L Plt Count 80 L Immature Gran % (Auto) 3.0 H Neut % (Auto) 83.3 H Lymph % (Auto) 7.5 L Lymph # (Auto) Mcminn # (Auto) Immature Gran # 0.64 H Absolute Neutrophils 17.73 H ESR POC VBG pO2 POC VBG HCO3 POC VBG Total CO2 POC Venous O2 Sat POC VBG Base Excess VBG Lactic Acid Sodium 131 L Potassium 3.0 L Carbon Dioxide POC BUN BUN 32 H Creatinine 1.4 H POC Creatinine Glucose 144 H POC Glucose Calcium 7.4 L POC WB Ioniz Calcium Phosphorus 1.3 L Total Bilirubin Direct Bilirubin GGT AST ALT Alkaline Phosphatase Total Protein Albumin Albumin/Globulin Ratio Triglycerides 06/26/22 06/26/22 06/25/22 05:11 05:11 22:16 WBC 18.6 H RBC 4.27 L Hgb Hct Plt Count 75 L Immature Gran % (Auto) 1.8 H Neut % (Auto) 88.3 H Lymph % (Auto) 3.3 L Lymph # (Auto) 0.62 L Mcminn # (Auto) Immature Gran # 0.33 H Absolute Neutrophils 16.39 H ESR > 130 H POC VBG pO2 POC VBG HCO3 POC VBG Total CO2 POC Venous O2 Sat POC VBG Base Excess VBG Lactic Acid Sodium 131 L 130 L Potassium 3.1 L Carbon Dioxide 21 L POC BUN BUN 32 H 37 H Creatinine 1.5 H 1.3 H POC Creatinine Glucose 140 H 183 H POC Glucose Calcium 7.5 L 7.6 L POC WB Ioniz Calcium Phosphorus 1.8 L Total Bilirubin 1.9 H Direct Bilirubin 1.7 H GGT 197 H AST 43 H ALT 160 H Alkaline Phosphatase 156 H Total Protein 4.9 L Albumin 2.0 L Albumin/Globulin Ratio 0.7 L Triglycerides 186 H 06/25/22 06/25/22 06/25/22 14:22 12:26 10:24 WBC RBC Hgb Hct Plt Count Immature Gran % (Auto) Neut % (Auto) Lymph % (Auto) Lymph # (Auto) Mcminn # (Auto) Immature Gran # Absolute Neutrophils ESR POC VBG pO2 20 L POC VBG HCO3 22.6 L POC VBG Total CO2 24.0 L POC Venous O2 Sat 30.0 L POC VBG Base Excess -3.0 L VBG Lactic Acid 2.3 H 2.2 H Sodium Potassium Carbon Dioxide POC BUN 36 H BUN 37 H Creatinine 1.3 H POC Creatinine 1.8 H Glucose 182 H POC Glucose 166 H Calcium 7.9 L POC WB Ioniz Calcium 1.01 L Phosphorus Total Bilirubin Direct Bilirubin GGT AST ALT Alkaline Phosphatase Total Protein Albumin Albumin/Globulin Ratio Triglycerides 06/25/22 06/25/22 10:24 10:20 WBC 21.9 H RBC Hgb Hct Plt Count 115 L Immature Gran % (Auto) 7.8 H Neut % (Auto) 81.8 H Lymph % (Auto) 2.2 L Lymph # (Auto) 0.49 L Mcminn # (Auto) 1.52 H Immature Gran # 1.72 H Absolute Neutrophils 17.91 H ESR POC VBG pO2 20 L POC VBG HCO3 23.4 L POC VBG Total CO2 POC Venous O2 Sat 29.0 L POC VBG Base Excess VBG Lactic Acid 4.1 H* Sodium Potassium Carbon Dioxide POC BUN BUN Creatinine POC Creatinine Glucose POC Glucose Calcium POC WB Ioniz Calcium Phosphorus Total Bilirubin Direct Bilirubin GGT AST ALT Alkaline Phosphatase Total Protein Albumin Albumin/Globulin Ratio Triglycerides Meds: Medications Acetaminophen (Acetaminophen 325 Mg Tablet) 650 mg PO Q6HP PRN; Protocol PRN Reason: Per Pain Protocol/Fever > 101 Last Admin: 06/27/22 12:12 Dose: 650 mg Digoxin (Digoxin 125 Mcg Tablet) 125 mcg PO DAILY@1400 [facility] Last Admin: 06/27/22 08:59 Dose: 125 mcg Docusate Sodium (Docusate Sodium 100 Mg Capsule) 100 mg PO BID [facility] Last Admin: 06/27/22 08:58 Dose: 100 mg Enoxaparin Sodium (Enoxaparin 40 Mg/0.4 Ml Syringe) 40 mg SQ DAILY [facility] Last Admin: 06/27/22 08:59 Dose: 40 mg Penicillin G Potassium 4,000, (000 unit/ Sodium Chloride) 58 mls @ 100 mls/hr IV Q4H [facility]; Protocol Last Admin: 06/27/22 13:00 Dose: 100 mls/hr CLINDAMYCIN IN 0.9 % SOD CHLOR (Clindamycin 600 Mg/50 Ml-Ns) 600 mg in 50 mls @ 100 mls/hr IV Q8H [facility] Last Admin: 06/27/22 12:59 Dose: 100 mls/hr Lactulose (Lactulose 20 Gm/30 Ml Oral.Gilda) 10 gm PO DAILYP PRN PRN Reason: Constipation Metoprolol Succinate (Metoprolol Succinate 25 Mg Tab.Xl.24h) 12.5 mg PO BID [facility] Last Admin: 06/27/22 08:59 Dose: 12.5 mg Ondansetron HCl (Ondansetron 4 Mg/2 Ml Vial) 4 mg IV Q4HP PRN; Protocol PRN Reason: Nausea And Vomiting Oxycodone/Acetaminophen (Oxycodone/Apap 5/325mg Tablet) 1 tab PO Q4HP PRN; Protocol PRN Reason: Per Pain Protocol Last Admin: 06/27/22 12:56 Dose: 1 tab Senna (Sennosides 1 Tablet) 2 tab PO HSP PRN PRN Reason: Constipation Sodium Chloride (0.9 % Sodium Chloride 10 Ml Syringe) 10 ml IV Q8 [facility] Last Admin: 06/27/22 05:30 Dose: 10 ml A/P Assessment and plan (1) Sepsis: Status: Acute Qualifiers: Sepsis acute organ dysfunction status: without acute organ dysfunction Sepsis type: sepsis due to unspecified organism Qualified Code(s): A41.9 - Sepsis, unspecified organism (2) Cellulitis of leg, right: Status: Acute (3) Acute hypotension: Status: Acute (4) SVETLANA (acute kidney injury): Status: Acute (5) Lactic acidosis: Status: Acute (6) Hyperglycemia: Status: Acute Narrative A/P Narrative: The patient's right lower extremity will be demarcated and we will follow her closely. At this time we will continue aggressive IV fluid resuscitation and repeat as lactic acid. The patient was given a dose of vancomycin in the ER and we will start Zosyn. We will send for an MRSA screen and check blood cultures. The patient will be monitored on telemetry. 06/26: In terms of the patient's sepsis, his lactic acid has come down from 4.1- 1.6. The rate of IV fluids will be decreased today. His blood pressure has improved and was 118/63 this morning. He continues to have fevers with a T-max of 101.2. He remains tachycardic. Blood cultures are pending. His white blood cell count has come down slightly to 18.6. Continue vancomycin and cefepime. On examination, the leg appears less edematous, erythematous and does not is tender to touch. It is still quite warm to touch. The patient's SVETLANA is also improving slowly as his creatinine is down to 1.5. 06/27: Blood cultures were positive for streptococcal pyogenes. The patient remains tachycardic with SVT. His white blood cell count went back up to 21.3 and he continues to have fevers. Most recently his temp was 101.2. Telemetry infectious disease were consulted. They de-escalated Zosyn to penicillin. IV clindamycin was continued. Repeat CT of the lower extremity reveals moderate cellulitis with no underlying abscess. It did reveal thrombophlebitis. We will continue low-dose of Toprol-XL and digoxin 125 mcg p.o. daily. In terms of his [id number] 2 score, he he does not meet criteria for full anticoagulation. Time Spent With Patient Time: Total time spent is greater than 50% in coordination of care (as documented) at patient's floor/unit and/or counseling patient: Subsequent: Total time with patient: 35 - 49 minutes Critical Care Time: Yes
--- NOTE | 2022-06-27 14:19 | Urology Consult Note ---
HPI Date of Consult Consult Date: 06/27/22 Requesting physician: Karon Byers Consult Narrative Patient Information: Note initiated : 06/27/22 at 2:17 pm Service Date, if different from initiated Date: [] Patient: Jaxon Gross 62 y/o M admitted on 06/25/22 for leg infection. Chief Complaint: [Gross hematuria] Jaxon is a 62 year old male who was admitted to the hospital through the ER with a 1 week history of worsening right lower extremity pain, erythema and swelling. On admission he was found to be septic with tachycardia and hypotension. His white blood cell count was 22,000 and serum creatinine was 1.8. During admission his white blood cell count has remained elevated and climbing and he has not been improving as expected. Telehealth ID consult was obtained. He was diagnosed with Streptococcus pyogenes bacteremia and cellulitis with concern for possible fasciitis. His antibiotic was changed to to penicillin and clindamycin. CT of the right leg was recommended as well as surgical consultation. CT of the right lower extremity was obtained and revealed moderate cellulitis and edema along the medial side of the right lower leg with associated thrombophlebitis of the distal portion of the greater saphenous vein. In the chest abdomen and pelvis was also obtained. From a urologic standpoint this revealed that kidneys appeared normal, without evidence of mass, cyst stone or hydronephrosis. The right kidney was smaller than the left. This was reported to be a chronic stable finding, unchanged from prior ultrasound done in 2004. Additionally, there was stranding of the fat in the retroperitoneum. This was said to be a nonspecific finding and may be from prior episodes of inflamm ation or scar. There was no evidence of acute infection within the abdomen or pelvis. Yesterday it was reported that the patient began straining to urinate after straining he had an episode of gross hematuria. 16 Vietnamese Forrester catheter was easily placed and initially drained urine which has cleared over the past day urine is currently clear and yellow. In speaking with the patient he reports that he did not have any difficulty with urination or any urinary problems prior to this hospital admission. He had an episode of gross hematuria when he was a child but has not had any recent gross hematuria. He denies any history of smoking. He denies any other significant medical problems. He does not take any medications at home. He has no known allergies. Due to the gross hematuria urology consultation was requested. Chief complaint: Gross hematuria Reason for consult: Gross hematuria cc:: CC: Karon Byers MD Review of Systems All systems: reviewed and no additional remarkable complaints except as stated Constitutional Constitutional: Present fatigue, lethargy, malaise and weakness Genitourinary Genitourinary: as per HPI, change in urinary stream and difficulty urinating Musculoskeletal Musculoskeletal: Present as per HPI Integumentary Integumentary: Present erythema, skin pain and swelling PFSH PFSH All Active Problems (Updated 06/27/22 @ 14:31 by Shay Reese MD) Incomplete bladder emptying (Acute) Gross hematuria (Acute) BPH loc w urin obs/LUTS (Acute) Sepsis (Acute) Cellulitis of leg, right (Acute) Acute hypotension (Acute) SVETLANA (acute kidney injury) (Acute) Lactic acidosis (Acute) Hyperglycemia (Acute) Social History smoking status: Never smoker MEDS/ALLERGIES Home Medications and Allergies Home Medications Medication Instructions Recorded Confirmed Type ibuprofen 200 mg capsule 800 mg PO Q8H PRN Pain 06/25/22 06/26/22 History melatonin 10 mg PO QHS PRN Insomnia 06/25/22 06/26/22 History prednisone 20 mg tablet 3 tab PO QDAY 06/25/22 06/26/22 History Allergies Allergy/AdvReac Type Severity Reaction Status Date / Time No Known Drug Allergies Allergy Verified 06/26/22 06:45 Physical Examination Vital Signs Vital signs: Temp Pulse Resp BP Pulse Ox O2 Del Method O2 Flow Rate 100.7 F H 96 H 29 H 88/49 93 2 06/27/22 14:02 06/27/22 14:02 06/27/22 14:02 06/27/22 14:02 06/27/22 14:02 06/27/22 14:02 06/27/22 12:46 General physical appearance General physical exam: well developed, well nourished and no distress Head Head exam IM: Present atraumatic, normal inspection and normocephalic Neck Neck exam: trachea midline Cardiovascular Cardiovascular exam IM: Present normal rate and rhythm Respiratory Respiratory exam: normal respiratory effort and clear to auscultation Abdomen Abdomen: Present soft and non tender Musculoskeletal Musculoskeletal: Present other (Unable to evaluate as the patient is lying in bed in the ICU) Psychiatric Psychiatric: Present oriented to time, oriented to person, oriented to place and speech is normal Results Labs Result diagrams: 06/27/22 05:22 06/27/22 05:22 Labs: Abnormal lab results 06/26/22 06/27/22 06/27/22 Range/Units 19:39 05:22 05:22 WBC 21.3 H (4.5-11.0) K/mcL RBC 4.03 L (4.63-6.08) M/mcL Hgb 13.4 L (13.7-17.5) g/dL Hct 38.3 L (40.1-51.0) % Plt Count 80 L (140-440) K/mcL Immature Gran % (Auto) 3.0 H (0.0-0.5) % Neut % (Auto) 83.3 H (38.0-78.0) % Lymph % (Auto) 7.5 L (15.5-49.0) % Immature Gran # 0.64 H (0.00-0.05) K/mcl Absolute Neutrophils 17.73 H (1.80-8.00) K/mcL Sodium 131 L (133-145) mmol/L Potassium 3.0 L (3.3-5.1) mmol/L BUN 32 H (8-23) mg/dL Creatinine 1.4 H (0.7-1.2) mg/dL Glucose 144 H (70-105) mg/dL Calcium 7.4 L (8.6-10.4) mg/dL Phosphorus 1.3 L (2.5-4.5) mg/dL Diabetes panel 06/27/22 Range/Units 05:22 Sodium 131 L (133-145) mmol/L Potassium 3.0 L (3.3-5.1) mmol/L Chloride 99 (96-108) mmol/L Carbon Dioxide 22 (22-30) mmol/L BUN 32 H (8-23) mg/dL Creatinine 1.4 H (0.7-1.2) mg/dL Glucose 144 H (70-105) mg/dL Calcium 7.4 L (8.6-10.4) mg/dL Calcium panel 06/26/22 06/27/22 06/27/22 Range/Units 19:39 05:22 05:22 Calcium 7.4 L (8.6-10.4) mg/dL Phosphorus 1.3 L 2.9 (2.5-4.5) mg/dL Pituitary panel 06/27/22 Range/Units 05:22 Sodium 131 L (133-145) mmol/L Potassium 3.0 L (3.3-5.1) mmol/L Chloride 99 (96-108) mmol/L Carbon Dioxide 22 (22-30) mmol/L BUN 32 H (8-23) mg/dL Creatinine 1.4 H (0.7-1.2) mg/dL Glucose 144 H (70-105) mg/dL Calcium 7.4 L (8.6-10.4) mg/dL Adrenal panel 06/27/22 Range/Units 05:22 Sodium 131 L (133-145) mmol/L Potassium 3.0 L (3.3-5.1) mmol/L Chloride 99 (96-108) mmol/L Carbon Dioxide 22 (22-30) mmol/L BUN 32 H (8-23) mg/dL Creatinine 1.4 H (0.7-1.2) mg/dL Glucose 144 H (70-105) mg/dL Calcium 7.4 L (8.6-10.4) mg/dL All other labs normal. Imaging CT scan - abdomen: report reviewed and image reviewed CT scan - chest: report reviewed CT scan - pelvis: report reviewed and image reviewed Additional studies: Report of CT of the right lower extremity reviewed A/P Assessment and plan (1) BPH loc w urin obs/LUTS: Status: Acute (2) Gross hematuria: Status: Acute (3) Incomplete bladder emptying: Status: Acute Narrative A/P Narrative: Jaxon is a 62-year-old male with no prior significant medical problems. He was admitted to the hospital with right lower extremity cellulitis and sepsis. Despite treatment with antibiotics his symptoms have not resolved and his white blood cell count is rising. He has no history of prior urinary symptoms. Yesterday, however, he felt the need to strain to urinate. Postvoid residual was obtained and was 200 mL by bladder scan. He then had an episode of gross hematuria and a 16 Vietnamese Forrester catheter was easily placed. The urine was initially red but then cleared. Today the urine is clear and yellow. Urology consultation was obtained. The patient has never been a smoker. He had a CT of the chest abdomen and pelvis without contrast once he is recovered if his renal function allows we should obtain a CT IVP. Once he recovers and as an outpatient we will perform an office cystoscopy for further evaluation. We will also obtain urine for cytology as an outpatient in the office. Once the patient recovers his Forrester catheter should be removed prior to discharge. If he is unable to urinate it should be replaced. If his hematuria recurs please reconsult us. At the time being we will sign off and follow-up with him as an outpatient. Time Spent With Patient Time: Total time spent is greater than 50% in coordination of care (as documented) at patient's floor/unit and/or counseling patient:
[2022-06-27] MEDS ORDERED: PHENobarb/HYOSCY/ATROPINE/SCOP 1 DOSE BOTTLE PO PRN (17:02)
[2022-06-28] MEDS: PENICILLIN G POTASSIUM 4,000,000 UNIT in 0.9 % SODIUM CHLORIDE 50 ML IV SCH ×6 (01:14→21:34)
[2022-06-28] MEDS: CLINDAMYCIN IN 0.9 % SOD CHLOR 600 MG/50 ML BAG IV SCH ×3 (05:02→21:06)
[2022-06-28] MEDS: 0.9 % SODIUM CHLORIDE 10 ML SYRINGE IV SCH ×3 (05:03→21:34)
[2022-06-28 06:51] LABS: Basophils # (Auto) 0.12 K/mcL (0.00-0.30); Basophils % (Auto) 0.6 % (0.0-2.0); Eosinophils # (Auto) 0.34 K/mcL (0.00-0.70); Eosinophils % (Auto) 1.6 % (0.0-7.0); Hematocrit 38.2 % (40.1-51.0); Hemoglobin 13.1 g/dL (13.7-17.5); Lymphocytes # (Auto) 2.73 K/mcL (1.50-4.80); Mean Cell Volume 98.5 fL (80.0-100.0); Mean Corpuscular HGB Conc 34.3 g/dL (31.0-36.0); Mean Platelet Volume 11.1 fL (8.8-12.5); Monocytes # (Auto) 0.64 K/mcL (0.10-0.90); Monocytes % (Auto) 3.1 % (1.0-12.0); Neutrophils % (Auto) 77.5 % (38.0-78.0); Platelet Count 80 K/mcL (140-440); RBC 3.88 M/mcL (4.63-6.08); Red Cell Distribution Width 13.2 % (11.5-14.5); WBC 20.8 K/mcL (4.5-11.0)
[2022-06-28 07:20] LABS: ALT/SGPT 60 U/L (<40); AST/SGOT 24 U/L (<40); Albumin 1.8 gm/dL (3.2-5.2); Albumin/Globulin Ratio 0.5 (1.0-2.3); Alkaline Phosphatase 137 U/L (39-117); Bilirubin,Total 1.6 mg/dL (0.1-1.0); Blood Urea Nitrogen 22 mg/dL (8-23); Calcium 7.6 mg/dL (8.6-10.4); Carbon Dioxide 23 mmol/L (22-30); Chloride 103 mmol/L (96-108); Globulin 3.6 gm/dL (2.2-3.7); Glomerular Filtration Rate 80; Glucose 112 mg/dL (70-105)
[2022-06-28 07:53] LABS: Lymphocytes % (Auto) 13.2 % (15.5-49.0)
[2022-06-28] MEDS: DOCUSATE SODIUM 100 MG CAPSULE PO SCH ×2 (08:56→20:11)
[2022-06-28] MEDS: ENOXAPARIN 40 MG/0.4 ML SYRINGE SQ SCH (09:00)
[2022-06-28] MEDS: oxyCODONE/APAP 5/325MG TABLET PO PRN ×3 (09:01→17:17)
[2022-06-28] MEDS: METOPROLOL SUCCINATE 25 MG TAB.XL.24H PO SCH ×2 (09:01→21:33)
--- NOTE | 2022-06-28 09:53 | EKG ---
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 Possibly atrial flutter INTRAVENTRICULAR CONDUCTION DELAY with morphologic features of LBBB Electronically Signed On 06-28-2022 9:52:44 PST by Zaire Mcwilliams /store/M0/[id number]
--- NOTE | 2022-06-28 09:55 | EKG ---
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
--- NOTE | 2022-06-28 10:19 | Internal Med Progress Note ---
SUBJECTIVE Subjective Patient information: Note initiated : 06/28/22 at 10:16 am Service Date, if different from initiated Date: [] Patient: Jaxon Gross 62 y/o M admitted on 06/25/22 for leg infection. Chief Complaint: [RLE swelling, pain, erythema] Principal diagnosis: Sepsis Interval history: The patient is looking and feeling better today. He continues to spike fevers continuously. He has no active complaints or concerns. Discussed plan of care with the nurse who was present at the bedside. Constitutional Vitals: Vital Signs Temp Pulse Resp BP Pulse Ox O2 Del Method O2 Flow Rate 100.7 F H 91 H 18 133/70 92 2 06/28/22 10:00 06/28/22 10:00 06/28/22 10:00 06/28/22 10:00 06/28/22 10:00 06/28/22 10:00 06/27/22 12:46 Period Temp Pulse Resp BP Sys/Nj Pulse Ox O2 Del Method O2 Flow Rate Last 24 Hr 100.1 F-101.2 F 75-152 11-35 88-152/46-82 88-100 Nasal Cannula-Room Air 2-2 Intake and Output 06/27/22 06/28/22 06/28/22 19:59 03:59 11:59 Intake Total 2516 166 908 Output Total 545 738 324 Balance 1970 Weight 86.806 kg Intake & Output: Intake & Output 06/27/22 06/28/22 06/28/22 19:59 03:59 11:59 Intake Total 2516 166 908 Output Total 545 738 324 Balance 1970 Weight 86.806 kg Intake: Nourishment/Supplement quantity 150 (ml) IV 1166 166 108 Lactated Ringers 1,000 ml @ 150 1000 mls/hr IV .[id number] S[facility] Rx#: [id number] Pfizerpen 4,000,000 Unit In 116 116 58 Sodium Chloride 0.9% 50 ml @ 100 mls/hr IV Q4H SISSY Rx#: [id number] Oral 1200 800 Output: Urine Catheter Amount 545 738 324 Other: Meal Lunch 400 Percent of Meal Consumed Refused Feeding Ability Independent Urine Appearance Clear Clear Clear Uretheral (Forrester) Clear Urine Color Dark Yellow Dark Yellow Dark Yellow Uretheral (Forrester) Dark Yellow Dark Yellow Light Lisa Urine Odor Normal Normal Stool Size Large Large Stool Color Brown Brown Stool Consistency Liquid Liquid # Bowel Movements 1 2 # of times incontinent of 1 Bowels Head Head exam: Present atraumatic and normal inspection Eye Eye exam: Present normal appearance ENT ENT exam: Present mucous membranes moist, normal exam and normal external ear exam Neck Neck exam: Present normal inspection Respiratory Respiratory exam: Present normal respiratory exam Cardiovascular Cardiovascular exam: Present normal rate and rhythm GI/Abdominal GI/Abdominal exam: Present normal bowel sounds Back Exam Back exam: Present normal inspection Neurological Exam Neurological exam: Present alert and oriented X3 Skin Skin exam: Present intact and warm OBJ DATA Labs CBC & Chem 7: 06/28/22 06:03 06/28/22 06:03 Labs: Abnormal Lab Results 06/28/22 06/28/22 06/27/22 06:03 06:03 05:22 WBC 20.8 H RBC 3.88 L Hgb 13.1 L Hct 38.2 L Plt Count 80 L Immature Gran % (Auto) 4.0 H Neut % (Auto) Lymph % (Auto) 13.2 L Lymph # (Auto) Christian # (Auto) Immature Gran # 0.84 H Absolute Neutrophils 16.09 H ESR POC VBG pO2 POC VBG HCO3 POC VBG Total CO2 POC Venous O2 Sat POC VBG Base Excess VBG Lactic Acid Sodium 131 L Potassium 3.0 L Carbon Dioxide POC BUN BUN 32 H Creatinine 1.4 H POC Creatinine Glucose 112 H 144 H POC Glucose Calcium 7.6 L 7.4 L POC WB Ioniz Calcium Phosphorus Total Bilirubin 1.6 H Direct Bilirubin GGT AST ALT 60 H Alkaline Phosphatase 137 H Total Protein 5.4 L Albumin 1.8 L Albumin/Globulin Ratio 0.5 L Triglycerides 06/27/22 06/26/22 06/26/22 05:22 19:39 05:11 WBC 21.3 H RBC 4.03 L Hgb 13.4 L Hct 38.3 L Plt Count 80 L Immature Gran % (Auto) 3.0 H Neut % (Auto) 83.3 H Lymph % (Auto) 7.5 L Lymph # (Auto) Christian # (Auto) Immature Gran # 0.64 H Absolute Neutrophils 17.73 H ESR POC VBG pO2 POC VBG HCO3 POC VBG Total CO2 POC Venous O2 Sat POC VBG Base Excess VBG Lactic Acid Sodium 131 L Potassium Carbon Dioxide 21 L POC BUN BUN 32 H Creatinine 1.5 H POC Creatinine Glucose 140 H POC Glucose Calcium 7.5 L POC WB Ioniz Calcium Phosphorus 1.3 L 1.8 L Total Bilirubin 1.9 H Direct Bilirubin 1.7 H GGT 197 H AST 43 H ALT 160 H Alkaline Phosphatase 156 H Total Protein 4.9 L Albumin 2.0 L Albumin/Globulin Ratio 0.7 L Triglycerides 186 H 06/26/22 06/25/22 06/25/22 05:11 22:16 14:22 WBC 18.6 H RBC 4.27 L Hgb Hct Plt Count 75 L Immature Gran % (Auto) 1.8 H Neut % (Auto) 88.3 H Lymph % (Auto) 3.3 L Lymph # (Auto) 0.62 L Christian # (Auto) Immature Gran # 0.33 H Absolute Neutrophils 16.39 H ESR > 130 H POC VBG pO2 POC VBG HCO3 POC VBG Total CO2 POC Venous O2 Sat POC VBG Base Excess VBG Lactic Acid 2.3 H Sodium 130 L Potassium 3.1 L Carbon Dioxide POC BUN BUN 37 H 37 H Creatinine 1.3 H 1.3 H POC Creatinine Glucose 183 H 182 H POC Glucose Calcium 7.6 L 7.9 L POC WB Ioniz Calcium Phosphorus Total Bilirubin Direct Bilirubin GGT AST ALT Alkaline Phosphatase Total Protein Albumin Albumin/Globulin Ratio Triglycerides 06/25/22 06/25/22 06/25/22 12:26 10:24 10:24 WBC RBC Hgb Hct Plt Count Immature Gran % (Auto) Neut % (Auto) Lymph % (Auto) Lymph # (Auto) Christian # (Auto) Immature Gran # Absolute Neutrophils ESR POC VBG pO2 20 L 20 L POC VBG HCO3 22.6 L 23.4 L POC VBG Total CO2 24.0 L POC Venous O2 Sat 30.0 L 29.0 L POC VBG Base Excess -3.0 L VBG Lactic Acid 2.2 H 4.1 H* Sodium Potassium Carbon Dioxide POC BUN 36 H BUN Creatinine POC Creatinine 1.8 H Glucose POC Glucose 166 H Calcium POC WB Ioniz Calcium 1.01 L Phosphorus Total Bilirubin Direct Bilirubin GGT AST ALT Alkaline Phosphatase Total Protein Albumin Albumin/Globulin Ratio Triglycerides 06/25/22 10:20 WBC 21.9 H RBC Hgb Hct Plt Count 115 L Immature Gran % (Auto) 7.8 H Neut % (Auto) 81.8 H Lymph % (Auto) 2.2 L Lymph # (Auto) 0.49 L Christian # (Auto) 1.52 H Immature Gran # 1.72 H Absolute Neutrophils 17.91 H ESR POC VBG pO2 POC VBG HCO3 POC VBG Total CO2 POC Venous O2 Sat POC VBG Base Excess VBG Lactic Acid Sodium Potassium Carbon Dioxide POC BUN BUN Creatinine POC Creatinine Glucose POC Glucose Calcium POC WB Ioniz Calcium Phosphorus Total Bilirubin Direct Bilirubin GGT AST ALT Alkaline Phosphatase Total Protein Albumin Albumin/Globulin Ratio Triglycerides Meds: Medications Acetaminophen (Acetaminophen 325 Mg Tablet) 650 mg PO Q6HP PRN; Protocol PRN Reason: Per Pain Protocol/Fever > 101 Last Admin: 06/27/22 20:37 Dose: 650 mg Belladonna/Phenobarbital (Phenobarb/Hyoscy/Atropine/Scop 1 Dose Bottle) 1 dose PO Q4HP PRN PRN Reason: Dyspepsia Last Admin: 06/27/22 17:16 Dose: 1 dose Digoxin (Digoxin 125 Mcg Tablet) 125 mcg PO DAILY@1400 [facility] Last Admin: 06/27/22 14:22 Dose: Not Given Docusate Sodium (Docusate Sodium 100 Mg Capsule) 100 mg PO BID [facility] Last Admin: 06/28/22 08:56 Dose: Not Given Enoxaparin Sodium (Enoxaparin 40 Mg/0.4 Ml Syringe) 40 mg SQ DAILY [facility] Last Admin: 06/28/22 09:00 Dose: 40 mg Penicillin G Potassium 4,000, (000 unit/ Sodium Chloride) 58 mls @ 100 mls/hr IV Q4H [facility]; Protocol Stop: 06/29/22 03:00 Last Admin: 06/28/22 09:00 Dose: 100 mls/hr CLINDAMYCIN IN 0.9 % SOD CHLOR (Clindamycin 600 Mg/50 Ml-Ns) 600 mg in 50 mls @ 100 mls/hr IV Q8H [facility] Last Infusion: 06/28/22 05:51 Dose: Infused Ceftriaxone Sodium 2 gm/ (Dextrose) 50 mls @ 100 mls/hr IV Q24H [facility] Lactulose (Lactulose 20 Gm/30 Ml Oral.Gilda) 10 gm PO DAILYP PRN PRN Reason: Constipation Metoprolol Succinate (Metoprolol Succinate 25 Mg Tab.Xl.24h) 12.5 mg PO BID [facility] Last Admin: 06/28/22 09:01 Dose: 12.5 mg Ondansetron HCl (Ondansetron 4 Mg/2 Ml Vial) 4 mg IV Q4HP PRN; Protocol PRN Reason: Nausea And Vomiting Oxycodone/Acetaminophen (Oxycodone/Apap 5/325mg Tablet) 1 tab PO Q4HP PRN; Protocol PRN Reason: Per Pain Protocol Last Admin: 06/28/22 09:01 Dose: 1 tab Senna (Sennosides 1 Tablet) 2 tab PO HSP PRN PRN Reason: Constipation Sodium Chloride (0.9 % Sodium Chloride 10 Ml Syringe) 10 ml IV Q8 [facility] Last Admin: 06/28/22 05:03 Dose: 10 ml A/P Assessment and plan (1) Sepsis: Status: Acute Qualifiers: Sepsis acute organ dysfunction status: without acute organ dysfunction Sepsis type: sepsis due to unspecified organism Qualified Code(s): A41.9 - Sepsis, unspecified organism (2) Cellulitis of leg, right: Status: Acute (3) Acute hypotension: Status: Acute (4) SVETLANA (acute kidney injury): Status: Acute (5) Lactic acidosis: Status: Acute (6) Hyperglycemia: Status: Acute Narrative A/P Narrative: The patient's right lower extremity will be demarcated and we will follow her closely. At this time we will continue aggressive IV fluid resuscitation and repeat as lactic acid. The patient was given a dose of vancomycin in the ER and we will start Zosyn. We will send for an MRSA screen and check blood cultures. The patient will be monitored on telemetry. 06/26: In terms of the patient's sepsis, his lactic acid has come down from 4.1- 1.6. The rate of IV fluids will be decreased today. His blood pressure has improved and was 118/63 this morning. He continues to have fevers with a T-max of 101.2. He remains tachycardic. Blood cultures are pending. His white blood cell count has come down slightly to 18.6. Continue vancomycin and cefepime. On examination, the leg appears less edematous, erythematous and does not is tender to touch. It is still quite warm to touch. The patient's SVETLANA is also improving slowly as his creatinine is down to 1.5. 06/27: Blood cultures were positive for streptococcal pyogenes. The patient remains tachycardic with SVT. His white blood cell count went back up to 21.3 and he continues to have fevers. Most recently his temp was 101.2. Telemetry infectious disease were consulted. They de-escalated Zosyn to penicillin. IV clindamycin was continued. Repeat CT of the lower extremity reveals moderate cellulitis with no underlying abscess. It did reveal thrombophlebitis. We will continue low-dose of Toprol-XL and digoxin 125 mcg p.o. daily. In terms of his [id number] 2 score, he he does not meet criteria for full anticoagulation. 06/28: The patient is slowly improving however it would likely take him some time. His repeat blood cultures reveal no growth to date. Continue penicillin and IV clindamycin. Continue wound care. The patient's A. fib converted to normal sinus rhythm yesterday. Continue Toprol-XL and digoxin. TTE is pending. Time Spent With Patient Time: Total time spent is greater than 50% in coordination of care (as documented) at patient's floor/unit and/or counseling patient: Subsequent: Total time with patient: 25 - 34 minutes
[2022-06-28] MEDS: DIGOXIN 125 MCG TABLET PO SCH (13:04)
--- NOTE | 2022-06-28 17:44 | General Surgery Consult Note ---
HPI Date of Consult Consult Date: 06/28/22 Consult Narrative Patient Information: Note initiated : 06/28/22 at 5:37 pm Service Date, if different from initiated Date: [] Patient: Jaxon Gross 62 y/o M admitted on 06/25/22 for leg infection. This is a pleasant 62 y/o who presents with right lower extremity cellulitis. I was asked to see patient for possible debridement. Patient has been on abx without improvement for several days and ID recommended CT and surgical consult. CT with thrombophlebitis. Chief Complaint: [] Chief complaint: cellulitis cc:: CC: Karon Byers MD Review of Systems Review of systems: negative other than above PFSH PFSH All Active Problems Bacteremia due to Streptococcus (Acute) Anemia, normocytic normochromic (Acute) Atrial fibrillation (Acute) Sepsis (Acute) Cellulitis of leg, right (Acute) Acute hypotension (Acute) SVETLANA (acute kidney injury) (Acute) Lactic acidosis (Acute) Hyperglycemia (Acute) BPH loc w urin obs/LUTS (Acute) Gross hematuria (Acute) Incomplete bladder emptying (Acute) Social History smoking status: Never smoker MEDS/ALLERGIES Home Medications and Allergies Home Medications Medication Instructions Recorded Confirmed Type ibuprofen 200 mg capsule 800 mg PO Q8H PRN Pain 06/25/22 06/26/22 History melatonin 10 mg PO QHS PRN Insomnia 06/25/22 06/26/22 History prednisone 20 mg tablet 3 tab PO QDAY 06/25/22 06/26/22 History Allergies Allergy/AdvReac Type Severity Reaction Status Date / Time No Known Drug Allergies Allergy Verified 06/26/22 06:45 Physical Examination Vital Signs Vital signs: Temp Pulse Resp BP Pulse Ox O2 Del Method O2 Flow Rate 100.7 F H 91 H 19 146/71 92 2 06/28/22 16:55 06/28/22 16:55 06/28/22 16:55 06/28/22 16:00 06/28/22 16:55 06/28/22 14:00 06/27/22 12:46 Integumentary Integumentary: Present other (right lower leg cellulitis, improving compared to smith, no fluctuence or necrosis) Results Labs Result diagrams: 06/28/22 06:03 06/28/22 06:03 Labs: Abnormal lab results 06/28/22 06/28/22 Range/Units 06:03 06:03 WBC 20.8 H (4.5-11.0) K/mcL RBC 3.88 L (4.63-6.08) M/mcL Hgb 13.1 L (13.7-17.5) g/dL Hct 38.2 L (40.1-51.0) % Plt Count 80 L (140-440) K/mcL Immature Gran % (Auto) 4.0 H (0.0-0.5) % Lymph % (Auto) 13.2 L (15.5-49.0) % Immature Gran # 0.84 H (0.00-0.05) K/mcl Absolute Neutrophils 16.09 H (1.80-8.00) K/mcL Glucose 112 H (70-105) mg/dL Calcium 7.6 L (8.6-10.4) mg/dL Total Bilirubin 1.6 H (0.1-1.0) mg/dL ALT 60 H (<40) U/L Alkaline Phosphatase 137 H (39-117) U/L Total Protein 5.4 L (5.9-8.4) gm/dL Albumin 1.8 L (3.2-5.2) gm/dL Albumin/Globulin Ratio 0.5 L (1.0-2.3) Diabetes panel 06/28/22 Range/Units 06:03 Sodium 136 (133-145) mmol/L Potassium 3.8 (3.3-5.1) mmol/L Chloride 103 (96-108) mmol/L Carbon Dioxide 23 (22-30) mmol/L BUN 22 (8-23) mg/dL Creatinine 1.0 (0.7-1.2) mg/dL Glucose 112 H (70-105) mg/dL Calcium 7.6 L (8.6-10.4) mg/dL AST 24 (<40) U/L ALT 60 H (<40) U/L Alkaline Phosphatase 137 H (39-117) U/L Total Protein 5.4 L (5.9-8.4) gm/dL Albumin 1.8 L (3.2-5.2) gm/dL Calcium panel 06/28/22 Range/Units 06:03 Calcium 7.6 L (8.6-10.4) mg/dL Albumin 1.8 L (3.2-5.2) gm/dL Pituitary panel 06/28/22 Range/Units 06:03 Sodium 136 (133-145) mmol/L Potassium 3.8 (3.3-5.1) mmol/L Chloride 103 (96-108) mmol/L Carbon Dioxide 23 (22-30) mmol/L BUN 22 (8-23) mg/dL Creatinine 1.0 (0.7-1.2) mg/dL Glucose 112 H (70-105) mg/dL Calcium 7.6 L (8.6-10.4) mg/dL Adrenal panel 06/28/22 Range/Units 06:03 Sodium 136 (133-145) mmol/L Potassium 3.8 (3.3-5.1) mmol/L Chloride 103 (96-108) mmol/L Carbon Dioxide 23 (22-30) mmol/L BUN 22 (8-23) mg/dL Creatinine 1.0 (0.7-1.2) mg/dL Glucose 112 H (70-105) mg/dL Calcium 7.6 L (8.6-10.4) mg/dL Total Bilirubin 1.6 H (0.1-1.0) mg/dL AST 24 (<40) U/L ALT 60 H (<40) U/L Alkaline Phosphatase 137 H (39-117) U/L Total Protein 5.4 L (5.9-8.4) gm/dL Albumin 1.8 L (3.2-5.2) gm/dL All other labs normal. Imaging CT scan - abdomen: other (CT reviewed, cellulitis, no abscess, thrombophlebitis) A/P Assessment and plan (1) Bacteremia due to Streptococcus: Status: Acute (2) Sepsis: Status: Acute Qualifiers: Sepsis acute organ dysfunction status: without acute organ dysfunction Sepsis type: sepsis due to unspecified organism Qualified Code(s): A41.9 - Sepsis, unspecified organism (3) Cellulitis of leg, right: Status: Acute Plan septic thrombophlebitis rec: IV abx, anticoagulation call with further questions Time Spent With Patient Time: Total time spent is greater than 50% in coordination of care (as documented) at patient's floor/unit and/or counseling patient:
[2022-06-28] MEDS: ACETAMINOPHEN 325 MG TABLET PO PRN (19:36)
[2022-06-28] MEDS: morphine 2 MG/ML VIAL IV PRN (20:04)
[2022-06-29] MEDS: PENICILLIN G POTASSIUM 4,000,000 UNIT in 0.9 % SODIUM CHLORIDE 50 ML IV SCH (00:55)
[2022-06-29] MEDS: oxyCODONE/APAP 5/325MG TABLET PO PRN ×4 (01:03→18:19)
[2022-06-29] MEDS: MELATONIN 3 MG TABLET PO PRN (01:04)
[2022-06-29] MEDS: CLINDAMYCIN IN 0.9 % SOD CHLOR 600 MG/50 ML BAG IV SCH ×3 (05:33→20:54)
[2022-06-29] MEDS: 0.9 % SODIUM CHLORIDE 10 ML SYRINGE IV SCH ×3 (05:33→20:54)
[2022-06-29] MEDS: cefTRIAXone 2 GM in DEXTROSE 5% IN WATER 50 ML IV SCH (05:59)
[2022-06-29 06:55] LABS: Basophils # (Auto) 0.08 K/mcL (0.00-0.30); Basophils % (Auto) 0.4 % (0.0-2.0); Eosinophils # (Auto) 0.41 K/mcL (0.00-0.70); Eosinophils % (Auto) 1.9 % (0.0-7.0); Hematocrit 34.8 % (40.1-51.0); Mean Cell Volume 95.9 fL (80.0-100.0); Mean Corpuscular HGB Conc 34.5 g/dL (31.0-36.0); Mean Platelet Volume 10.9 fL (8.8-12.5); Monocytes # (Auto) 1.02 K/mcL (0.10-0.90); Monocytes % (Auto) 4.7 % (1.0-12.0); Neutrophils % (Auto) 69.7 % (38.0-78.0); Platelet Count 110 K/mcL (140-440); RBC 3.63 M/mcL (4.63-6.08); Red Cell Distribution Width 13.2 % (11.5-14.5); WBC 21.7 K/mcL (4.5-11.0)
[2022-06-29 07:04] LABS: ALT/SGPT 54 U/L (<40); AST/SGOT 48 U/L (<40); Albumin 1.8 gm/dL (3.2-5.2); Albumin/Globulin Ratio 0.5 (1.0-2.3); Alkaline Phosphatase 147 U/L (39-117); Bilirubin,Total 1.2 mg/dL (0.1-1.0); Blood Urea Nitrogen 18 mg/dL (8-23); Calcium 7.4 mg/dL (8.6-10.4); Carbon Dioxide 26 mmol/L (22-30); Chloride 103 mmol/L (96-108); Globulin 3.6 gm/dL (2.2-3.7); Glomerular Filtration Rate 91; Glucose 125 mg/dL (70-105)
[2022-06-29] MEDS: METOPROLOL SUCCINATE 25 MG TAB.XL.24H PO SCH ×2 (08:56→20:54)
[2022-06-29] MEDS: ENOXAPARIN 40 MG/0.4 ML SYRINGE SQ SCH (08:57)
[2022-06-29] MEDS: DOCUSATE SODIUM 100 MG CAPSULE PO SCH ×2 (08:57→20:11)
[2022-06-29] MEDS: morphine 2 MG/ML VIAL IV PRN ×2 (08:57→14:40)
--- NOTE | 2022-06-29 09:25 | Cat Scan Report ---
History: Bacteremia, leg infection TECHNIQUE: Following injection of intravenous nonionic contrast the patient was imaged during the venous phase from above the diaphragm through the pelvis. Delayed excretory phase images were repeated. Sagittal and coronal reformats were created. The radiation exposure was limited using dose reduction technology. FINDINGS: Small bilateral layering pleural effusions are present. There is consolidation of the basilar segments of both lower lobes. This may be atelectasis or pneumonia. The consolidation has not changed significantly since the recent CT done on 06/27/22. The volume of pleural fluid has increased a small amount. The liver and spleen are normal in size and homogeneous. There is no evidence of mass or inflammation the pancreas. There are no calcified stones within the gallbladder the morales not thickened or inflamed. The bile ducts are nondilated. The adrenals are normal symmetric. Kidneys are normal in size shape and contour. There is no kidney stone, hydronephrosis, mass or evidence of pyelonephritis. There is a Forrester catheter in urinary bladder. Small bubbles of gas within the bladder which is probably related to the Forrester. There are small diverticula along the posterior wall of the bladder adjacent to the ureterovesical junctions. Patient has a mild ileus pattern with small air-fluid levels in nondilated large and small intestine. There is no evidence of colitis, diverticulitis or bowel obstruction. Trace amount of ascites is seen in the left mid abdomen. There is no enough fluid to aspirate. No abscess is present. No abnormally enlarged lymph nodes are present. There is persistent mild stranding of the fat in the paracolic gutters which may be from inflammation or scar. This is stable. There are stable fat-containing bilateral inguinal hernias. There is no entrapment of bowel or inflammation. The aorta and inferior vena cava are normal except for scattered plaques. There is no evidence of thrombosis or stenosis of the vessels in the abdomen pelvis or either groin. IMPRESSION: Mild ileus Atelectasis or pneumonia in both lower lobes No abdominal abscess or mass Interpreted and Authenticated by: Terrence Ma 06/29/22
--- NOTE | 2022-06-29 11:29 | Internal Med Progress Note ---
SUBJECTIVE Subjective Patient information: Note initiated : 06/29/22 at 11:24 am Service Date, if different from initiated Date: [] Patient: Jaxon Gross 62 y/o M admitted on 06/25/22 for leg infection. Chief Complaint: [] Principal diagnosis: Sepsis Interval history: 06/29: Fever Tmax 38.3 overnight. Repeat blood culture no growth to date. IV pyelogram no acute findings. Blood pressure been okay overnight. Patient is complain of mild burning pain of the right lower extremity at rest which became severe when he tried to move his leg or when it is being touched. He also is complaining of subjective fever and shaking chills. Downgraded patient to [facility] with telemetry. Continue to work with infectious disease specialist. Continue Rocephin and IV clindamycin. Add Eliquis as anticoagulations for thrombophlebitis. Continue physical therapy evaluation and treatment. Constitutional Vitals: Vital Signs Temp Pulse Resp BP Pulse Ox O2 Del Method O2 Flow Rate 37.8 C H 84 13 158/77 94 0 06/29/22 10:01 06/29/22 10:01 06/29/22 10:01 06/29/22 10:01 06/29/22 10:01 06/29/22 10:01 06/29/22 02:01 Period Temp Pulse Resp BP Sys/Nj Pulse Ox O2 Del Method O2 Flow Rate Last 24 Hr 37.4 C-38.3 C 79-99 11-28 130-158/59-80 87-100 Room Air-Room Air 0 Intake and Output 06/28/22 06/29/22 06/29/22 19:59 03:59 11:59 Intake Total 1846 766 780 Output Total 660 250 575 Balance 1186 516 205 Weight 89.222 kg Intake & Output: Intake & Output 06/28/22 06/29/22 06/29/22 19:59 03:59 11:59 Intake Total 1846 766 780 Output Total 660 250 575 Balance 1186 516 205 Weight 89.222 kg Intake: Nourishment/Supplement quantity 240 (ml) IV 166 166 100 Pfizerpen 4,000,000 Unit In 116 116 Sodium Chloride 0.9% 50 ml @ 100 mls/hr IV Q4H [facility] Rx#: [id number] Rocephin 2 gm In Dextrose 5% in 50 Water 50 ml @ 100 mls/hr IV Q24H [facility] Rx#:[id number] Oral 960 600 680 GI Tube Flush 480 Output: Urine Catheter Amount 660 250 575 Other: Meal Dinner Percent of Meal Consumed Refused Feeding Ability Assist with Tray Set Up Urine Appearance Clear Clear Clear Uretheral (Forrester) Clear Clear Urine Color Dark Lisa Dark Yellow Dark Yellow Uretheral (Forrester) Dark Yellow Dark Yellow # Bowel Movements 0 0 General appearance: cooperative and no acute distress Head Head exam: Present atraumatic and normal inspection Eye Eye exam: Present normal appearance ENT ENT exam: Present mucous membranes moist, normal exam and normal external ear exam Neck Neck exam: Present normal inspection Respiratory Respiratory exam: Present normal respiratory exam Cardiovascular Cardiovascular exam: Present normal rate and rhythm GI/Abdominal GI/Abdominal exam: Present normal bowel sounds Additional comments: Forrester catheter in place Extremities Exam Extremities exam: Present calf tenderness, joint swelling, pedal edema and ten derness; Absent normal inspection Back Exam Back exam: Present normal inspection Neurological Exam Neurological exam: Present alert and oriented X3 Skin Skin exam: Present erythema, intact, rash and warm OBJ DATA Labs CBC & Chem 7: 06/29/22 05:10 06/29/22 05:10 Labs: Abnormal Lab Results 06/29/22 06/29/22 06/28/22 05:10 05:10 06:03 WBC 21.7 H RBC 3.63 L Hgb 12.0 L Hct 34.8 L Plt Count 110 L Immature Gran % (Auto) 5.3 H Neut % (Auto) Lymph % (Auto) [place] # (Auto) 1.02 H Immature Gran # 1.15 H Absolute Neutrophils 15.14 H Sodium Potassium Anion Gap 5.0 L BUN Creatinine Glucose 125 H 112 H Calcium 7.4 L 7.6 L Phosphorus Total Bilirubin 1.2 H 1.6 H AST 48 H ALT 54 H 60 H Alkaline Phosphatase 147 H 137 H Total Protein 5.4 L 5.4 L Albumin 1.8 L 1.8 L Albumin/Globulin Ratio 0.5 L 0.5 L 06/28/22 06/27/22 06/27/22 06:03 05:22 05:22 WBC 20.8 H 21.3 H RBC 3.88 L 4.03 L Hgb 13.1 L 13.4 L Hct 38.2 L 38.3 L Plt Count 80 L 80 L Immature Gran % (Auto) 4.0 H 3.0 H Neut % (Auto) 83.3 H Lymph % (Auto) 13.2 L 7.5 L [place] # (Auto) Immature Gran # 0.84 H 0.64 H Absolute Neutrophils 16.09 H 17.73 H Sodium 131 L Potassium 3.0 L Anion Gap BUN 32 H Creatinine 1.4 H Glucose 144 H Calcium 7.4 L Phosphorus Total Bilirubin AST ALT Alkaline Phosphatase Total Protein Albumin Albumin/Globulin Ratio 06/26/22 19:39 WBC RBC Hgb Hct Plt Count Immature Gran % (Auto) Neut % (Auto) Lymph % (Auto) [place] # (Auto) Immature Gran # Absolute Neutrophils Sodium Potassium Anion Gap BUN Creatinine Glucose Calcium Phosphorus 1.3 L Total Bilirubin AST ALT Alkaline Phosphatase Total Protein Albumin Albumin/Globulin Ratio Meds: Medications Acetaminophen (Acetaminophen 325 Mg Tablet) 650 mg PO Q6HP PRN; Protocol PRN Reason: Per Pain Protocol/Fever > 101 Last Admin: 06/28/22 19:36 Dose: 650 mg Apixaban (Apixaban 5 Mg Tablet) 5 mg PO BID [facility] Belladonna/Phenobarbital (Phenobarb/Hyoscy/Atropine/Scop 1 Dose Bottle) 1 dose PO Q4HP PRN PRN Reason: Dyspepsia Last Admin: 06/27/22 17:16 Dose: 1 dose Digoxin (Digoxin 125 Mcg Tablet) 125 mcg PO DAILY@1400 [facility] Last Admin: 06/28/22 13:04 Dose: 125 mcg Docusate Sodium (Docusate Sodium 100 Mg Capsule) 100 mg PO BID [facility] Last Admin: 06/29/22 08:57 Dose: Not Given Enoxaparin Sodium (Enoxaparin 40 Mg/0.4 Ml Syringe) 40 mg SQ DAILY [facility] Last Admin: 06/29/22 08:57 Dose: 40 mg CLINDAMYCIN IN 0.9 % SOD CHLOR (Clindamycin 600 Mg/50 Ml-Ns) 600 mg in 50 mls @ 100 mls/hr IV Q8H [facility] Last Infusion: 06/29/22 06:13 Dose: Infused Ceftriaxone Sodium 2 gm/ (Dextrose) 50 mls @ 100 mls/hr IV Q24H [facility] Last Infusion: 06/29/22 06:42 Dose: Infused Ibuprofen (Ibuprofen 800 Mg Tablet) 800 mg PO Q8HP PRN PRN Reason: Pain Lactulose (Lactulose 20 Gm/30 Ml Oral.Gilda) 10 gm PO DAILYP PRN PRN Reason: Constipation Melatonin (Melatonin 3 Mg Tablet) 9 mg PO HSP PRN PRN Reason: Insomnia Last Admin: 06/29/22 01:04 Dose: 9 mg Metoprolol Succinate (Metoprolol Succinate 25 Mg Tab.Xl.24h) 12.5 mg PO BID [facility] Last Admin: 06/29/22 08:56 Dose: 12.5 mg Morphine Sulfate (Morphine 2 Mg/Ml Vial) 2 mg IV Q4HP PRN; Protocol PRN Reason: Per Pain Protocol Last Admin: 06/29/22 08:57 Dose: 2 mg Ondansetron HCl (Ondansetron 4 Mg/2 Ml Vial) 4 mg IV Q4HP PRN; Protocol PRN Reason: Nausea And Vomiting Oxycodone/Acetaminophen (Oxycodone/Apap 5/325mg Tablet) 1 tab PO Q4HP PRN; Protocol PRN Reason: Per Pain Protocol Last Admin: 06/29/22 10:52 Dose: 1 tab Senna (Sennosides 1 Tablet) 2 tab PO HSP PRN PRN Reason: Constipation Sodium Chloride (0.9 % Sodium Chloride 10 Ml Syringe) 10 ml IV Q8 [facility] Last Admin: 06/29/22 05:33 Dose: 10 ml A/P Assessment and plan (1) Bacteremia due to Streptococcus: Status: Acute (2) Cellulitis of leg, right: Status: Acute (3) Sepsis: Status: Acute Qualifiers: Sepsis acute organ dysfunction status: without acute organ dysfunction Sepsis type: sepsis due to unspecified organism Qualified Code(s): A41.9 - Sepsis, unspecified organism (4) Atrial fibrillation: Status: Acute (5) Anemia, normocytic normochromic: Status: Acute (6) Thrombophlebitis of right lower extremity: Status: Acute (7) Gross hematuria: Status: Acute Narrative A/P Narrative: Assessment and Plans: 1. Right leg cellulitis, right distal greater saphenous vein thrombophlebitis, with associated group A strep bacteremia, clinical sepsis: Transfer to med surg telemetry Consulting ID specialist, recs. appreciated Consulting general surgeon Dr. Robledo, recs. appreciated Repeat blood culture no growth to date TTE no evidence of endocarditis Eliquis for right distal greater saphenous vein thrombophlebitis Continue Rocephin Continue Clindamycin IV Tylenol Percocet Ibuprofen Morphine cbc w/ auto diff in the morning to trend WBC Physical therapy evaluation and treatment 2. Atrial fibrillation: Converted back to normal sinus rhythm Toprol XL Digoxin Eliquis 3. Acute kidney injury: Kidney functions back to baseline 4. Gross hematuria: Urology consulted, outpatient follow up with potential cystoscopy IV pylogram no acute intraabdominal/pelvic pathologies d/c Forerster catheter prior to hospital discharge 5. Anemia, normocytic normochromic: cbc w/ auto diff in the morning to trend H/H GI ppx: Not currently indicated DVT ppx: Eliquis Code status: Full Prognosis: guarded Disposition: inpatient med surg tele; PT Time Spent With Patient Time: Total time spent is greater than 50% in coordination of care (as documented) at patient's floor/unit and/or counseling patient: Subsequent: Total time with patient: 35 - 49 minutes
[2022-06-29] MEDS: IBUPROFEN 800 MG TABLET PO PRN (11:58)
[2022-06-29] MEDS: DIGOXIN 125 MCG TABLET PO SCH (13:47)
[2022-06-29] MEDS: ACETAMINOPHEN 325 MG TABLET PO PRN (14:40)
--- NOTE | 2022-06-29 15:49 | Internal Med Progress Note ---
SUBJECTIVE Subjective Patient information: Note initiated : 06/29/22 at 3:46 pm Service Date, if different from initiated Date: [] Patient: Jaxon Gross 62 y/o M admitted on 06/25/22 for leg infection. Chief Complaint: [] Principal diagnosis: Sepsis Interval history: Patient continues to be febrile. Tachycardia has improved. Constitutional Vitals: Vital Signs Temp Pulse Resp BP Pulse Ox O2 Del Method O2 Flow Rate 100.7 F H 84 12 154/73 93 0 06/29/22 15:00 06/29/22 15:00 06/29/22 15:00 06/29/22 11:51 06/29/22 15:00 06/29/22 11:51 06/29/22 02:01 Period Temp Pulse Resp BP Sys/Nj Pulse Ox O2 Del Method O2 Flow Rate Last 24 Hr 99.3 F-101.0 F 79-96 11-28 130-158/67-77 87-100 Room Air-Room Air 0 Intake and Output 06/29/22 06/29/22 06/29/22 03:59 11:59 19:59 Intake Total 766 1020 50 Output Total 250 815 240 Balance 516 205 -190 Weight 196 lb 11.2 oz Intake & Output: Intake & Output 06/29/22 06/29/22 06/29/22 03:59 11:59 19:59 Intake Total 766 1020 50 Output Total 250 815 240 Balance 516 205 -190 Weight 196 lb 11.2 oz Intake: Nourishment/Supplement quantity 240 (ml) IV 166 100 50 Pfizerpen 4,000,000 Unit In 116 Sodium Chloride 0.9% 50 ml @ 100 mls/hr IV Q4H [facility] Rx#: [id number] Rocephin 2 gm In Dextrose 5% in 50 Water 50 ml @ 100 mls/hr IV Q24H [facility] Rx#:[id number] Oral 600 680 Output: Urine Catheter Amount 250 815 240 Other: Meal Breakfast Percent of Meal Consumed 50% Feeding Ability Independent Nourishment/Supplement name Ensure clear Urine Appearance Clear Clear Clear Uretheral (Forrester) Clear Clear Urine Color Dark Yellow Dark Yellow Bright Yellow Uretheral (Forrester) Dark Yellow Dark Yellow Stool Size Moderate Stool Color Brown Stool Consistency Liquid Loose # Bowel Movements 0 0 1 General appearance: no acute distress Exam: Right leg in dressing. Images of the ankle show enlarging bullae. Proximally the medial thigh is less erythematous and edematous. OBJ DATA Labs CBC & Chem 7: 06/29/22 05:10 06/29/22 05:10 Labs: Abnormal Lab Results 06/29/22 06/29/22 06/28/22 05:10 05:10 06:03 WBC 21.7 H RBC 3.63 L Hgb 12.0 L Hct 34.8 L Plt Count 110 L Immature Gran % (Auto) 5.3 H Neut % (Auto) Lymph % (Auto) [place] # (Auto) 1.02 H Immature Gran # 1.15 H Absolute Neutrophils 15.14 H Sodium Potassium Anion Gap 5.0 L BUN Creatinine Glucose 125 H 112 H Calcium 7.4 L 7.6 L Phosphorus Total Bilirubin 1.2 H 1.6 H AST 48 H ALT 54 H 60 H Alkaline Phosphatase 147 H 137 H Total Protein 5.4 L 5.4 L Albumin 1.8 L 1.8 L Albumin/Globulin Ratio 0.5 L 0.5 L 06/28/22 06/27/22 06/27/22 06:03 05:22 05:22 WBC 20.8 H 21.3 H RBC 3.88 L 4.03 L Hgb 13.1 L 13.4 L Hct 38.2 L 38.3 L Plt Count 80 L 80 L Immature Gran % (Auto) 4.0 H 3.0 H Neut % (Auto) 83.3 H Lymph % (Auto) 13.2 L 7.5 L [place] # (Auto) Immature Gran # 0.84 H 0.64 H Absolute Neutrophils 16.09 H 17.73 H Sodium 131 L Potassium 3.0 L Anion Gap BUN 32 H Creatinine 1.4 H Glucose 144 H Calcium 7.4 L Phosphorus Total Bilirubin AST ALT Alkaline Phosphatase Total Protein Albumin Albumin/Globulin Ratio 06/26/22 19:39 WBC RBC Hgb Hct Plt Count Immature Gran % (Auto) Neut % (Auto) Lymph % (Auto) [place] # (Auto) Immature Gran # Absolute Neutrophils Sodium Potassium Anion Gap BUN Creatinine Glucose Calcium Phosphorus 1.3 L Total Bilirubin AST ALT Alkaline Phosphatase Total Protein Albumin Albumin/Globulin Ratio Meds: Medications Acetaminophen (Acetaminophen 325 Mg Tablet) 650 mg PO Q6HP PRN; Protocol PRN Reason: Per Pain Protocol/Fever > 101 Last Admin: 06/29/22 14:40 Dose: 650 mg Apixaban (Apixaban 5 Mg Tablet) 5 mg PO BID [facility] Belladonna/Phenobarbital (Phenobarb/Hyoscy/Atropine/Scop 1 Dose Bottle) 1 dose PO Q4HP PRN PRN Reason: Dyspepsia Last Admin: 06/27/22 17:16 Dose: 1 dose Digoxin (Digoxin 125 Mcg Tablet) 125 mcg PO DAILY@1400 [facility] Last Admin: 06/29/22 13:47 Dose: 125 mcg Docusate Sodium (Docusate Sodium 100 Mg Capsule) 100 mg PO BID [facility] Last Admin: 06/29/22 08:57 Dose: Not Given CLINDAMYCIN IN 0.9 % SOD CHLOR (Clindamycin 600 Mg/50 Ml-Ns) 600 mg in 50 mls @ 100 mls/hr IV Q8H [facility] Last Infusion: 06/29/22 14:15 Dose: Infused Ceftriaxone Sodium 2 gm/ (Dextrose) 50 mls @ 100 mls/hr IV Q24H [facility] Last Infusion: 06/29/22 06:42 Dose: Infused Ibuprofen (Ibuprofen 800 Mg Tablet) 800 mg PO Q8HP PRN PRN Reason: Pain Last Admin: 06/29/22 11:58 Dose: 800 mg Lactulose (Lactulose 20 Gm/30 Ml Oral.Gilda) 10 gm PO DAILYP PRN PRN Reason: Constipation Melatonin (Melatonin 3 Mg Tablet) 9 mg PO HSP PRN PRN Reason: Insomnia Last Admin: 06/29/22 01:04 Dose: 9 mg Metoprolol Succinate (Metoprolol Succinate 25 Mg Tab.Xl.24h) 12.5 mg PO BID [facility] Last Admin: 06/29/22 08:56 Dose: 12.5 mg Morphine Sulfate (Morphine 2 Mg/Ml Vial) 2 - 4 mg IV Q4HP PRN; Protocol PRN Reason: Per Pain Protocol Last Admin: 06/29/22 14:40 Dose: 4 mg Ondansetron HCl (Ondansetron 4 Mg/2 Ml Vial) 4 mg IV Q4HP PRN; Protocol PRN Reason: Nausea And Vomiting Oxycodone/Acetaminophen (Oxycodone/Apap 5/325mg Tablet) 1 tab PO Q4HP PRN; Protocol PRN Reason: Per Pain Protocol Last Admin: 06/29/22 10:52 Dose: 1 tab Senna (Sennosides 1 Tablet) 2 tab PO HSP PRN PRN Reason: Constipation Sodium Chloride (0.9 % Sodium Chloride 10 Ml Syringe) 10 ml IV Q8 [facility] Last Admin: 06/29/22 13:51 Dose: 10 ml A/P Narrative A/P Narrative: Patient with history of bilateral knees cellulitis, suspect necrotizing. Surgery has evaluated patient and deemed him not a surgical candidate. He continues to spike fever and has persistent leukocytosis. We will add linezolid and monitor platelet function. Time Spent With Patient Time: Total time spent is greater than 50% in coordination of care (as documented) at patient's floor/unit and/or counseling patient: Initial: Total time with patient: Less than 40 minutes
[2022-06-29] MEDS ORDERED: LINEZOLID 600 MG/300 ML BAG IV SCH (16:00)
[2022-06-29] MEDS ORDERED: IPRATROPIUM/ALBUTEROL 3 ML AMPUL.NEB NEB ONE (19:07)
[2022-06-29] MEDS: LINEZOLID 600 MG TABLET PO SCH (20:53)
[2022-06-29] MEDS: APIXABAN 5 MG TABLET PO SCH (20:54)
[2022-06-30] MEDS: MELATONIN 3 MG TABLET PO PRN ×2 (00:24→20:25)
[2022-06-30] MEDS: oxyCODONE/APAP 5/325MG TABLET PO PRN ×5 (00:24→23:52)
[2022-06-30] MEDS: CLINDAMYCIN IN 0.9 % SOD CHLOR 600 MG/50 ML BAG IV SCH ×3 (05:33→20:19)
[2022-06-30] MEDS: cefTRIAXone 2 GM in DEXTROSE 5% IN WATER 50 ML IV SCH ×2 (05:34→05:58)
[2022-06-30] MEDS: 0.9 % SODIUM CHLORIDE 10 ML SYRINGE IV SCH ×3 (05:34→20:13)
[2022-06-30 07:03] LABS: Basophils # (Auto) 0.13 K/mcL (0.00-0.30); Basophils % (Auto) 0.7 % (0.0-2.0); Eosinophils # (Auto) 0.31 K/mcL (0.00-0.70); Eosinophils % (Auto) 1.6 % (0.0-7.0); Hematocrit 35.5 % (40.1-51.0); Hemoglobin 12.1 g/dL (13.7-17.5); Lymphocytes # (Auto) 3.35 K/mcL (1.50-4.80); Lymphocytes % (Auto) 17.2 % (15.5-49.0); Mean Cell Volume 98.1 fL (80.0-100.0); Mean Corpuscular HGB Conc 34.1 g/dL (31.0-36.0); Mean Platelet Volume 10.7 fL (8.8-12.5); Monocytes # (Auto) 0.98 K/mcL (0.10-0.90); Neutrophils % (Auto) 70.3 % (38.0-78.0); Platelet Count 156 K/mcL (140-440); RBC 3.62 M/mcL (4.63-6.08); Red Cell Distribution Width 13.3 % (11.5-14.5); WBC 19.5 K/mcL (4.5-11.0)
[2022-06-30 07:17] LABS: ALT/SGPT 66 U/L (<40); AST/SGOT 66 U/L (<40); Albumin 1.9 gm/dL (3.2-5.2); Albumin/Globulin Ratio 0.5 (1.0-2.3); Alkaline Phosphatase 171 U/L (39-117); Blood Urea Nitrogen 14 mg/dL (8-23); Calcium 7.4 mg/dL (8.6-10.4); Carbon Dioxide 25 mmol/L (22-30); Chloride 101 mmol/L (96-108); Globulin 3.7 gm/dL (2.2-3.7); Glomerular Filtration Rate 91; Glucose 109 mg/dL (70-105)
--- NOTE | 2022-06-30 07:31 | Internal Med Progress Note ---
SUBJECTIVE Subjective Patient information: Note initiated : 06/30/22 at 7:27 am Service Date, if different from initiated Date: [] Patient: Jaxon Gross 62 y/o M admitted on 06/25/22 for leg infection. Chief Complaint: [] Principal diagnosis: Sepsis Interval history: 06/29: Fever Tmax 38.3 overnight. Repeat blood culture no growth to date. IV pyelogram no acute findings. Blood pressure been okay overnight. Patient is complain of mild burning pain of the right lower extremity at rest which became severe when he tried to move his leg or when it is being touched. He also is complaining of subjective fever and shaking chills. Downgraded patient to [facility] with telemetry. Continue to work with infectious disease specialist. Continue Rocephin and IV clindamycin. Add Eliquis as anticoagulations for thrombophlebitis. Continue physical therapy evaluation and treatment. 06/30: Low grade fever Tmax 37.8 overnight. Repeat blood culture no growth to date. ID Dr. Ryan added Zyvox in addition to Rocephin and Clindamycin. WBC down from 21.7 to 19.5. H/H stable. No reported black stool or bloody stool. Patient is coming of chills overnight. Patient is coming of burning sensation of the right lower extremities. Stay in inpatient med surg telemetry. Continue to work with infectious disease specialist Dr. Ryan, recelijah. appreciated. Continue Zyvox, Rocephin and IV clindamycin. Continue Eliquis as anticoagulations for thrombophlebitis. Continue physical therapy evaluation and treatment. Constitutional Vitals: Vital Signs Temp Pulse Resp BP Pulse Ox O2 Del Method O2 Flow Rate 37.2 C 86 9 L 141/74 97 0 06/30/22 00:17 06/30/22 00:17 06/29/22 20:00 06/30/22 00:17 06/30/22 00:17 06/30/22 00:17 06/30/22 00:17 Period Temp Pulse Resp BP Sys/Nj Pulse Ox O2 Del Method O2 Flow Rate Last 24 Hr 36.9 C-38.3 C 76-90 9-21 134-158/67-77 92-97 Room Air-Room Air 0-0 Intake and Output 06/29/22 06/30/2206/30/23 19:59 03:59 11:59 Intake Total 850 650 100 Output Total 890 400 Balance -40 250 100 Weight 87.906 kg Intake & Output: Intake & Output 06/29/22 06/30/22 06/30/22 19:59 03:59 11:59 Intake Total 850 650 100 Output Total 890 400 Balance -40 250 100 Weight 87.906 kg Intake: IV 50 50 100 Rocephin 2 gm In Dextrose 5% in 50 Water 50 ml @ 100 mls/hr IV Q24H [facility] Rx#:[id number] Oral 800 600 Output: Urine Catheter Amount 890 400 Other: Meal Lunch Percent of Meal Consumed 25% Feeding Ability Independent Urine Appearance Clear Clear Uretheral (Forrester) Clear Urine Color Light Lisa Dark Yellow Uretheral (Forrester) Dark Yellow Urine Odor Normal Stool Size Moderate Stool Color Brown Stool Consistency Liquid Loose # Bowel Movements 1 Additional comments: Forrester catheter in place Skin Skin exam: Present erythema, rash and warm OBJ DATA Labs CBC & Chem 7: 06/30/22 05:08 06/30/22 05:08 Labs: Abnormal Lab Results 06/30/22 06/30/22 06/29/22 05:08 05:08 05:10 WBC 19.5 H RBC 3.62 L Hgb 12.1 L Hct 35.5 L Plt Count Immature Gran % (Auto) 5.2 H Lymph % (Auto) [place] # (Auto) 0.98 H Immature Gran # 1.01 H Absolute Neutrophils 13.68 H Anion Gap 5.0 L Glucose 109 H 125 H Calcium 7.4 L 7.4 L Total Bilirubin 1.2 H AST 66 H 48 H ALT 66 H 54 H Alkaline Phosphatase 171 H 147 H Total Protein 5.6 L 5.4 L Albumin 1.9 L 1.8 L Albumin/Globulin Ratio 0.5 L 0.5 L 06/29/22 06/28/22 06/28/22 05:10 06:03 06:03 WBC 21.7 H 20.8 H RBC 3.63 L 3.88 L Hgb 12.0 L 13.1 L Hct 34.8 L 38.2 L Plt Count 110 L 80 L Immature Gran % (Auto) 5.3 H 4.0 H Lymph % (Auto) 13.2 L [place] # (Auto) 1.02 H Immature Gran # 1.15 H 0.84 H Absolute Neutrophils 15.14 H 16.09 H Anion Gap Glucose 112 H Calcium 7.6 L Total Bilirubin 1.6 H AST ALT 60 H Alkaline Phosphatase 137 H Total Protein 5.4 L Albumin 1.8 L Albumin/Globulin Ratio 0.5 L Meds: Medications Acetaminophen (Acetaminophen 325 Mg Tablet) 650 mg PO Q6HP PRN; Protocol PRN Reason: Per Pain Protocol/Fever > 101 Last Admin: 06/29/22 14:40 Dose: 650 mg Apixaban (Apixaban 5 Mg Tablet) 5 mg PO BID [facility] Last Admin: 06/29/22 20:54 Dose: 5 mg Belladonna/Phenobarbital (Phenobarb/Hyoscy/Atropine/Scop 1 Dose Bottle) 1 dose PO Q4HP PRN PRN Reason: Dyspepsia Last Admin: 06/27/22 17:16 Dose: 1 dose Digoxin (Digoxin 125 Mcg Tablet) 125 mcg PO DAILY@1400 [facility] Last Admin: 06/29/22 13:47 Dose: 125 mcg Docusate Sodium (Docusate Sodium 100 Mg Capsule) 100 mg PO BID [facility] Last Admin: 06/29/22 20:11 Dose: Not Given CLINDAMYCIN IN 0.9 % SOD CHLOR (Clindamycin 600 Mg/50 Ml-Ns) 600 mg in 50 mls @ 100 mls/hr IV Q8H [facility] Last Infusion: 06/30/22 06:20 Dose: Infused Ceftriaxone Sodium 2 gm/ (Dextrose) 50 mls @ 100 mls/hr IV Q24H [facility] Last Infusion: 06/30/22 06:44 Dose: Infused Ibuprofen (Ibuprofen 800 Mg Tablet) 800 mg PO Q8HP PRN PRN Reason: Pain Last Admin: 06/29/22 11:58 Dose: 800 mg Lactulose (Lactulose 20 Gm/30 Ml Oral.Gilda) 10 gm PO DAILYP PRN PRN Reason: Constipation Linezolid (Linezolid 600 Mg Tablet) 600 mg PO Q12 [facility]; Protocol Last Admin: 06/29/22 20:53 Dose: 600 mg Melatonin (Melatonin 3 Mg Tablet) 9 mg PO HSP PRN PRN Reason: Insomnia Last Admin: 06/30/22 00:24 Dose: 9 mg Metoprolol Succinate (Metoprolol Succinate 25 Mg Tab.Xl.24h) 12.5 mg PO BID [facility] Last Admin: 06/29/22 20:54 Dose: 12.5 mg Morphine Sulfate (Morphine 2 Mg/Ml Vial) 2 - 4 mg IV Q4HP PRN; Protocol PRN Reason: Per Pain Protocol Last Admin: 06/29/22 14:40 Dose: 4 mg Ondansetron HCl (Ondansetron 4 Mg/2 Ml Vial) 4 mg IV Q4HP PRN; Protocol PRN Reason: Nausea And Vomiting Oxycodone/Acetaminophen (Oxycodone/Apap 5/325mg Tablet) 1 tab PO Q4HP PRN; Protocol PRN Reason: Per Pain Protocol Last Admin: 06/30/22 05:57 Dose: 1 tab Senna (Sennosides 1 Tablet) 2 tab PO HSP PRN PRN Reason: Constipation Sodium Chloride (0.9 % Sodium Chloride 10 Ml Syringe) 10 ml IV Q8 [facility] Last Admin: 06/30/22 05:34 Dose: 10 ml A/P Assessment and plan (1) Bacteremia due to Streptococcus: Status: Acute (2) Cellulitis of leg, right: Status: Acute (3) Sepsis: Status: Acute Qualifiers: Sepsis acute organ dysfunction status: without acute organ dysfunction Sepsis type: sepsis due to unspecified organism Qualified Code(s): A41.9 - Sepsis, unspecified organism (4) Atrial fibrillation: Status: Acute (5) Anemia, normocytic normochromic: Status: Acute (6) Thrombophlebitis of right lower extremity: Status: Acute (7) Gross hematuria: Status: Acute Narrative A/P Narrative: Assessment and Plans: 1. Right leg cellulitis, right distal greater saphenous vein thrombophlebitis, with associated group A strep bacteremia, clinical sepsis: Stays in med surg telemetry Consulting ID specialist, recs. appreciated Consulting general surgeon Dr. Robledo, recs. appreciated Repeat blood culture no growth to date TTE no evidence of endocarditis Eliquis for right distal greater saphenous vein thrombophlebitis Continue Rocephin Continue Clindamycin IV Continue Zyvox Tylenol Percocet Ibuprofen Morphine cbc w/ auto diff in the morning to trend WBC Physical therapy evaluation and treatment 2. Atrial fibrillation: Converted back to normal sinus rhythm Toprol XL Digoxin Eliquis 3. Acute kidney injury: Kidney functions back to baseline 4. Gross hematuria: Urology consulted, outpatient follow up with potential cystoscopy IV pyelogram no acute intraabdominal/pelvic pathologies d/c Forrester catheter prior to hospital discharge 5. Anemia, normocytic normochromic: cbc w/ auto diff in the morning to trend H/H GI ppx: Not currently indicated DVT ppx: Eliquis Code status: Full Prognosis: guarded Disposition: inpatient med surg tele; PT Time Spent With Patient Time: Total time spent is greater than 50% in coordination of care (as documented) at patient's floor/unit and/or counseling patient: Subsequent: Total time with patient: 35 - 49 minutes
[2022-06-30] MEDS: morphine 2 MG/ML VIAL IV PRN ×4 (08:23→20:25)
[2022-06-30] MEDS: LINEZOLID 600 MG TABLET PO SCH ×2 (08:24→20:13)
[2022-06-30] MEDS: DOCUSATE SODIUM 100 MG CAPSULE PO SCH ×2 (08:25→20:15)
[2022-06-30] MEDS: METOPROLOL SUCCINATE 25 MG TAB.XL.24H PO SCH ×2 (08:25→20:15)
[2022-06-30] MEDS: APIXABAN 5 MG TABLET PO SCH ×3 (08:25→20:14)
[2022-06-30] MEDS: ACETAMINOPHEN 325 MG TABLET PO PRN ×2 (10:42→17:26)
[2022-06-30] MEDS: DIGOXIN 125 MCG TABLET PO SCH (13:31)
[2022-07-01] MEDS: morphine 2 MG/ML VIAL IV PRN (02:13)
[2022-07-01] MEDS: cefTRIAXone 2 GM in DEXTROSE 5% IN WATER 50 ML IV SCH (04:51)
[2022-07-01] MEDS: 0.9 % SODIUM CHLORIDE 10 ML SYRINGE IV SCH ×3 (04:51→20:45)
[2022-07-01] MEDS: oxyCODONE/APAP 5/325MG TABLET PO PRN ×4 (05:03→20:44)
[2022-07-01] MEDS: CLINDAMYCIN IN 0.9 % SOD CHLOR 600 MG/50 ML BAG IV SCH ×3 (05:43→20:50)
[2022-07-01 06:42] LABS: Basophils # (Auto) 0.09 K/mcL (0.00-0.30); Basophils % (Auto) 0.4 % (0.0-2.0); Eosinophils # (Auto) 0.24 K/mcL (0.00-0.70); Eosinophils % (Auto) 1.1 % (0.0-7.0); Hematocrit 35.1 % (40.1-51.0); Hemoglobin 12.1 g/dL (13.7-17.5); Lymphocytes % (Auto) 16.2 % (15.5-49.0); Mean Cell Volume 97.2 fL (80.0-100.0); Mean Corpuscular HGB Conc 34.5 g/dL (31.0-36.0); Mean Platelet Volume 10.5 fL (8.8-12.5); Monocytes # (Auto) 1.07 K/mcL (0.10-0.90); Monocytes % (Auto) 5.1 % (1.0-12.0); Neutrophils % (Auto) 72.4 % (38.0-78.0); Platelet Count 232 K/mcL (140-440); RBC 3.61 M/mcL (4.63-6.08); Red Cell Distribution Width 13.2 % (11.5-14.5); WBC 21.1 K/mcL (4.5-11.0)
[2022-07-01 07:30] LABS: ALT/SGPT 57 U/L (<40); AST/SGOT 49 U/L (<40); Albumin/Globulin Ratio 0.5 (1.0-2.3); Alkaline Phosphatase 244 U/L (39-117); Bilirubin,Total 0.9 mg/dL (0.1-1.0); Blood Urea Nitrogen 10 mg/dL (8-23); Calcium 7.4 mg/dL (8.6-10.4); Carbon Dioxide 23 mmol/L (22-30); Chloride 99 mmol/L (96-108); Globulin 4.1 gm/dL (2.2-3.7); Glomerular Filtration Rate 95; Glucose 107 mg/dL (70-105)
[2022-07-01] MEDS: APIXABAN 5 MG TABLET PO SCH ×2 (08:27→20:43)
[2022-07-01] MEDS: DOCUSATE SODIUM 100 MG CAPSULE PO SCH ×2 (08:27→20:43)
[2022-07-01] MEDS: IBUPROFEN 800 MG TABLET PO PRN ×2 (08:27→19:05)
[2022-07-01] MEDS: METOPROLOL SUCCINATE 25 MG TAB.XL.24H PO SCH ×2 (08:28→20:43)
[2022-07-01] MEDS: LINEZOLID 600 MG TABLET PO SCH ×2 (08:28→20:43)
--- NOTE | 2022-07-01 11:03 | Internal Med Progress Note ---
SUBJECTIVE Subjective Patient information: Note initiated : 07/01/22 at 10:59 am Service Date, if different from initiated Date: [] Patient: Jaxon Gross 62 y/o M admitted on 06/25/22 for leg infection. Chief Complaint: [] Principal diagnosis: Sepsis Interval history: 06/29: Fever Tmax 38.3 overnight. Repeat blood culture no growth to date. IV pyelogram no acute findings. Blood pressure been okay overnight. Patient is complain of mild burning pain of the right lower extremity at rest which became severe when he tried to move his leg or when it is being touched. He also is complaining of subjective fever and shaking chills. Downgraded patient to [facility] with telemetry. Continue to work with infectious disease specialist. Continue Rocephin and IV clindamycin. Add Eliquis as anticoagulations for thrombophlebitis. Continue physical therapy evaluation and treatment. 06/30: Low grade fever Tmax 37.8 overnight. Repeat blood culture no growth to date. ID Dr. Ryan added Zyvox in addition to Rocephin and Clindamycin. WBC down from 21.7 to 19.5. H/H stable. No reported black stool or bloody stool. Patient is coming of chills overnight. Patient is coming of burning sensation of the right lower extremities. Stay in inpatient med surg telemetry. Continue to work with infectious disease specialist Dr. Ryan, recs. appreciated. Continue Zyvox, Rocephin and IV clindamycin. Continue Eliquis as anticoagulations for thrombophlebitis. Continue physical therapy evaluation and treatment. 07/01: Low grade fever 37.3 overnight. Repeat blood culture no growth to date. WBC 21.1 this morning. Patient is c/o pain of right legs. Denies fever, chills, or sweating. Stay in inpatient med surg telemetry. Continue to work with infectious disease specialist Dr. Ryan, recs. appreciated. Consult Dr. Becerra for wound care, recs. appreciated. Continue Zyvox, Rocephin and IV clindamycin. Continue Eliquis as anticoagulations for thrombophlebitis. Continue physical therapy evaluation and treatment. Constitutional Vitals: Vital Signs Temp Pulse Resp BP Pulse Ox O2 Del Method O2 Flow Rate 37.3 C H 80 20 144/71 91 0 07/01/22 08:00 07/01/22 08:00 07/01/22 08:00 07/01/22 08:00 07/01/22 08:00 07/01/22 08:00 06/30/22 00:17 Period Temp Pulse Resp BP Sys/Nj Pulse Ox O2 Del Method O2 Flow Rate Last 24 Hr 37.3 C-38.6 C 80-87 14-22 139-150/71-78 90-93 Room Air-Room Air Intake and Output 06/30/22 07/01/22 07/01/22 19:59 03:59 11:59 Intake Total 410 50 340 Output Total 450 1075 Balance -40 50 -735 Weight 88.11 kg Intake & Output: Intake & Output 06/30/22 07/01/22 07/01/22 19:59 03:59 11:59 Intake Total 410 50 340 Output Total 450 1075 Balance -40 50 -735 Weight 88.11 kg Intake: IV 50 50 100 Rocephin 2 gm In Dextrose 5% in 50 Water 50 ml @ 100 mls/hr IV Q24H [facility] Rx#:[id number] Oral 360 240 Output: Urine Catheter Amount 450 1075 Other: Meal Lunch Percent of Meal Consumed 50% Urine Appearance Clear Clear Uretheral (Forrester) Clear Clear Urine Color Light Lisa Light Lisa Uretheral (Forrester) Dark Yellow Yellow Head Head exam: Present atraumatic and normal inspection Eye Eye exam: Present normal appearance ENT ENT exam: Present mucous membranes moist, normal exam and normal external ear exam Neck Neck exam: Present normal inspection Respiratory Respiratory exam: Present normal respiratory exam Cardiovascular Cardiovascular exam: Present normal rate and rhythm GI/Abdominal GI/Abdominal exam: Present normal bowel sounds Additional comments: Forrester catheter in place Extremities Exam Extremities exam: Absent normal inspection Additional comments: Erythematic rash right lower extremities with ulcers Back Exam Back exam: Present normal inspection Neurological Exam Neurological exam: Present alert and oriented X3 Skin Skin exam: Present abrasion, erythema and warm; Absent intact Additional comments: Erythematic rash right lower extremities with ulcers OBJ DATA Labs CBC & Chem 7: 07/01/22 05:27 07/01/22 05:27 Labs: Abnormal Lab Results 07/01/22 07/01/22 06/30/22 05:27 05:27 05:08 WBC 21.1 H RBC 3.61 L Hgb 12.1 L Hct 35.1 L Plt Count Immature Gran % (Auto) 4.8 H [place] # (Auto) 1.07 H Immature Gran # 1.01 H Absolute Neutrophils 15.24 H Sodium 130 L Anion Gap Glucose 107 H 109 H Calcium 7.4 L 7.4 L Total Bilirubin AST 49 H 66 H ALT 57 H 66 H Alkaline Phosphatase 244 H 171 H Total Protein 5.6 L Albumin 2.0 L 1.9 L Globulin 4.1 H Albumin/Globulin Ratio 0.5 L 0.5 L 06/30/22 06/29/22 06/29/22 05:08 05:10 05:10 WBC 19.5 H 21.7 H RBC 3.62 L 3.63 L Hgb 12.1 L 12.0 L Hct 35.5 L 34.8 L Plt Count 110 L Immature Gran % (Auto) 5.2 H 5.3 H [place] # (Auto) 0.98 H 1.02 H Immature Gran # 1.01 H 1.15 H Absolute Neutrophils 13.68 H 15.14 H Sodium Anion Gap 5.0 L Glucose 125 H Calcium 7.4 L Total Bilirubin 1.2 H AST 48 H ALT 54 H Alkaline Phosphatase 147 H Total Protein 5.4 L Albumin 1.8 L Globulin Albumin/Globulin Ratio 0.5 L Meds: Medications Acetaminophen (Acetaminophen 325 Mg Tablet) 650 mg PO Q6HP PRN; Protocol PRN Reason: Per Pain Protocol/Fever > 101 Last Admin: 06/30/22 17:26 Dose: 650 mg Apixaban (Apixaban 5 Mg Tablet) 5 mg PO BID [facility] Last Admin: 07/01/22 08:27 Dose: 5 mg Belladonna/Phenobarbital (Phenobarb/Hyoscy/Atropine/Scop 1 Dose Bottle) 1 dose PO Q4HP PRN PRN Reason: Dyspepsia Last Admin: 06/27/22 17:16 Dose: 1 dose Digoxin (Digoxin 125 Mcg Tablet) 125 mcg PO DAILY@1400 [facility] Last Admin: 06/30/22 13:31 Dose: 125 mcg Docusate Sodium (Docusate Sodium 100 Mg Capsule) 100 mg PO BID [facility] Last Admin: 07/01/22 08:27 Dose: 100 mg CLINDAMYCIN IN 0.9 % SOD CHLOR (Clindamycin 600 Mg/50 Ml-Ns) 600 mg in 50 mls @ 100 mls/hr IV Q8H [facility] Last Infusion: 07/01/22 06:15 Dose: Infused Ceftriaxone Sodium 2 gm/ (Dextrose) 50 mls @ 100 mls/hr IV Q24H [facility] Last Infusion: 07/01/22 05:44 Dose: Infused Ibuprofen (Ibuprofen 800 Mg Tablet) 800 mg PO Q8HP PRN PRN Reason: Pain Last Admin: 07/01/22 08:27 Dose: 800 mg Lactulose (Lactulose 20 Gm/30 Ml Oral.Gilda) 10 gm PO DAILYP PRN PRN Reason: Constipation Linezolid (Linezolid 600 Mg Tablet) 600 mg PO Q12 [facility]; Protocol Last Admin: 07/01/22 08:28 Dose: 600 mg Melatonin (Melatonin 3 Mg Tablet) 9 mg PO HSP PRN PRN Reason: Insomnia Last Admin: 06/30/22 20:25 Dose: 9 mg Metoprolol Succinate (Metoprolol Succinate 25 Mg Tab.Xl.24h) 12.5 mg PO BID [facility] Last Admin: 07/01/22 08:28 Dose: 12.5 mg Morphine Sulfate (Morphine 2 Mg/Ml Vial) 2 - 4 mg IV Q4HP PRN; Protocol PRN Reason: Per Pain Protocol Last Admin: 07/01/22 02:13 Dose: 4 mg Ondansetron HCl (Ondansetron 4 Mg/2 Ml Vial) 4 mg IV Q4HP PRN; Protocol PRN Reason: Nausea And Vomiting Oxycodone/Acetaminophen (Oxycodone/Apap 5/325mg Tablet) 1 tab PO Q4HP PRN; Protocol PRN Reason: Per Pain Protocol Last Admin: 07/01/22 05:03 Dose: 1 tab Senna (Sennosides 1 Tablet) 2 tab PO HSP PRN PRN Reason: Constipation Sodium Chloride (0.9 % Sodium Chloride 10 Ml Syringe) 10 ml IV Q8 [facility] Last Admin: 07/01/22 04:51 Dose: 10 ml A/P Assessment and plan (1) Bacteremia due to Streptococcus: Status: Acute (2) Cellulitis of leg, right: Status: Acute (3) Sepsis: Status: Acute Qualifiers: Sepsis acute organ dysfunction status: without acute organ dysfunction Sepsis type: sepsis due to unspecified organism Qualified Code(s): A41.9 - Sepsis, unspecified organism (4) Atrial fibrillation: Status: Acute (5) Anemia, normocytic normochromic: Status: Acute (6) Thrombophlebitis of right lower extremity: Status: Acute (7) Gross hematuria: Status: Acute Narrative A/P Narrative: Assessment and Plans: 1. Right leg cellulitis, right distal greater saphenous vein thrombophlebitis, with associated group A strep bacteremia, clinical sepsis: Stays in med surg telemetry Consulting ID specialist, recs. appreciated Consulting general surgeon Dr. Robledo, recs. appreciated Consulting Dr. Becerra for wound care, recs. appreciated Repeat blood culture no growth to date TTE no evidence of endocarditis Eliquis for right distal greater saphenous vein thrombophlebitis Continue Rocephin Continue Clindamycin IV Continue Zyvox Tylenol Percocet Ibuprofen Morphine cbc w/ auto diff in the morning to trend WBC Physical therapy evaluation and treatment 2. Atrial fibrillation: Converted back to normal sinus rhythm Toprol XL Digoxin Eliquis 3. Acute kidney injury: Kidney functions back to baseline 4. Gross hematuria: Urology consulted, outpatient follow up with potential cystoscopy IV pyelogram no acute intraabdominal/pelvic pathologies d/c Forrester catheter prior to hospital discharge 5. Anemia, normocytic normochromic: cbc w/ auto diff in the morning to trend H/H GI ppx: Not currently indicated DVT ppx: Eliquis Code status: Full Prognosis: guarded Disposition: inpatient med surg tele; PT Time Spent With Patient Time: Total time spent is greater than 50% in coordination of care (as documented) at patient's floor/unit and/or counseling patient: Subsequent: Total time with patient: 35 - 49 minutes
--- NOTE | 2022-07-01 13:07 | Internal Med Progress Note ---
SUBJECTIVE Subjective Patient information: Note initiated : 07/01/22 at 1:06 pm Service Date, if different from initiated Date: [] Patient: Jaxon Gross 62 y/o M admitted on 06/25/22 for leg infection. Chief Complaint: follow up Group A strept bacteremia Principal diagnosis: Sepsis Interval history: 62y/o pleasant male presented to emergency room on 06/25/22 with 5 day history of right lower extremity swelling, pain. Denies previous trauma to his leg. Noted some blister in his right medial leg with associated erythema and pain above the ankle, fever 1 week prior.Treated for shingles by PCP but came to ED after presenting with fever, tachycardia and hypotension. Creatinine was 1.8 (0.8 today), leukocytosis 21k still.Started on Zosyn and clindamycin. Blood culture growing Group A Streptococcus pyogenes. Seen by ID, switched to Penicillin + Clindamycin. Penicillin was not available, so pt is on Ceftriaxone instead. CT RLE+ moderate cellulitis, no myositis. Added Zyvox to current tx. Pertinent ROS: Right medial leg bullae burst and started draining fluid; refers much improvement of right leg pain, no chills today Constitutional Vitals: Vital Signs Temp Pulse Resp BP Pulse Ox O2 Del Method O2 Flow Rate 99.1 F H 80 20 144/71 91 0 07/01/22 08:00 07/01/22 08:00 07/01/22 08:00 07/01/22 08:00 07/01/22 08:00 07/01/22 08:00 06/30/22 00:17 Period Temp Pulse Resp BP Sys/Nj Pulse Ox O2 Del Method O2 Flow Rate Last 24 Hr 99.1 F-101.4 F 80-87 19-22 139-150/71-78 91-93 Room Air-Room Air Intake and Output 07/01/22 07/01/22 07/01/22 03:59 11:59 19:59 Intake Total 50 340 Output Total 1075 Balance 50 -735 Intake & Output: Intake & Output 07/01/22 07/01/22 07/01/22 03:59 11:59 19:59 Intake Total 50 340 Output Total 1075 Balance 50 -735 Intake: IV 50 100 Rocephin 2 gm In Dextrose 5% in 50 Water 50 ml @ 100 mls/hr IV Q24H [facility] Rx#:[id number] Oral 240 Output: Urine Catheter Amount 1075 Other: Urine Appearance Clear Uretheral (Forrester) Clear Urine Color Light Lisa Uretheral (Forrester) Yellow General appearance: cooperative and no acute distress Head Head exam: Present atraumatic Neurological Exam Neurological exam: Present alert and oriented X3 Skin Skin exam: Present erythema Additional comments: Demarcated right lower extremity erythema below right knee with associated open skin in distal leg medially, draining nonmalodorous clear yellow fluid OBJ DATA Labs CBC & Chem 7: 07/01/22 05:27 07/01/22 05:27 Labs: Abnormal Lab Results 07/01/22 07/01/22 06/30/22 05:27 05:27 05:08 WBC 21.1 H RBC 3.61 L Hgb 12.1 L Hct 35.1 L Plt Count Immature Gran % (Auto) 4.8 H [place] # (Auto) 1.07 H Immature Gran # 1.01 H Absolute Neutrophils 15.24 H Sodium 130 L Anion Gap Glucose 107 H 109 H Calcium 7.4 L 7.4 L Total Bilirubin AST 49 H 66 H ALT 57 H 66 H Alkaline Phosphatase 244 H 171 H Total Protein 5.6 L Albumin 2.0 L 1.9 L Globulin 4.1 H Albumin/Globulin Ratio 0.5 L 0.5 L 06/30/22 06/29/22 06/29/22 05:08 05:10 05:10 WBC 19.5 H 21.7 H RBC 3.62 L 3.63 L Hgb 12.1 L 12.0 L Hct 35.5 L 34.8 L Plt Count 110 L Immature Gran % (Auto) 5.2 H 5.3 H [place] # (Auto) 0.98 H 1.02 H Immature Gran # 1.01 H 1.15 H Absolute Neutrophils 13.68 H 15.14 H Sodium Anion Gap 5.0 L Glucose 125 H Calcium 7.4 L Total Bilirubin 1.2 H AST 48 H ALT 54 H Alkaline Phosphatase 147 H Total Protein 5.4 L Albumin 1.8 L Globulin Albumin/Globulin Ratio 0.5 L Meds: Medications Acetaminophen (Acetaminophen 325 Mg Tablet) 650 mg PO Q6HP PRN; Protocol PRN Reason: Per Pain Protocol/Fever > 101 Last Admin: 06/30/22 17:26 Dose: 650 mg Apixaban (Apixaban 5 Mg Tablet) 5 mg PO BID [facility] Last Admin: 07/01/22 08:27 Dose: 5 mg Belladonna/Phenobarbital (Phenobarb/Hyoscy/Atropine/Scop 1 Dose Bottle) 1 dose PO Q4HP PRN PRN Reason: Dyspepsia Last Admin: 06/27/22 17:16 Dose: 1 dose Digoxin (Digoxin 125 Mcg Tablet) 125 mcg PO DAILY@1400 [facility] Last Admin: 06/30/22 13:31 Dose: 125 mcg Docusate Sodium (Docusate Sodium 100 Mg Capsule) 100 mg PO BID [facility] Last Admin: 07/01/22 08:27 Dose: 100 mg CLINDAMYCIN IN 0.9 % SOD CHLOR (Clindamycin 600 Mg/50 Ml-Ns) 600 mg in 50 mls @ 100 mls/hr IV Q8H [facility] Last Admin: 07/01/22 12:28 Dose: 100 mls/hr Ceftriaxone Sodium 2 gm/ (Dextrose) 50 mls @ 100 mls/hr IV Q24H [facility] Last Infusion: 07/01/22 05:44 Dose: Infused Ibuprofen (Ibuprofen 800 Mg Tablet) 800 mg PO Q8HP PRN PRN Reason: Pain Last Admin: 07/01/22 08:27 Dose: 800 mg Lactulose (Lactulose 20 Gm/30 Ml Oral.Gilda) 10 gm PO DAILYP PRN PRN Reason: Constipation Linezolid (Linezolid 600 Mg Tablet) 600 mg PO Q12 [facility]; Protocol Last Admin: 07/01/22 08:28 Dose: 600 mg Melatonin (Melatonin 3 Mg Tablet) 9 mg PO HSP PRN PRN Reason: Insomnia Last Admin: 06/30/22 20:25 Dose: 9 mg Metoprolol Succinate (Metoprolol Succinate 25 Mg Tab.Xl.24h) 12.5 mg PO BID [facility] Last Admin: 07/01/22 08:28 Dose: 12.5 mg Morphine Sulfate (Morphine 2 Mg/Ml Vial) 2 - 4 mg IV Q4HP PRN; Protocol PRN Reason: Per Pain Protocol Last Admin: 07/01/22 02:13 Dose: 4 mg Ondansetron HCl (Ondansetron 4 Mg/2 Ml Vial) 4 mg IV Q4HP PRN; Protocol PRN Reason: Nausea And Vomiting Oxycodone/Acetaminophen (Oxycodone/Apap 5/325mg Tablet) 1 tab PO Q4HP PRN; Protocol PRN Reason: Per Pain Protocol Last Admin: 07/01/22 12:28 Dose: 1 tab Senna (Sennosides 1 Tablet) 2 tab PO HSP PRN PRN Reason: Constipation Sodium Chloride (0.9 % Sodium Chloride 10 Ml Syringe) 10 ml IV Q8 [facility] Last Admin: 07/01/22 04:51 Dose: 10 ml A/P Assessment and plan (1) Bacteremia due to Streptococcus: Assessment and plan: 62y/o male with Group A streptococcus bacteremia secondary to RLE cellulitis. Pt now draining from bullae in distal leg. Plan: - continue Ceftriaxone 2g IV daily for total 14 days - continue Clindamycin 600mg IV q8hrs for now - continue Zyvox 600mg PO q12hrs for now - will reassess labs tomorrow as pt now has presented some draining from his leg and has had mild improvement for possible de-escalation of antibiotics - follow up with wound care - monitor for loose stools while on Clindamycin Status: Acute (2) Cellulitis of leg, right: Status: Acute Time Spent With Patient Time: Total time spent is greater than 50% in coordination of care (as documented) at patient's floor/unit and/or counseling patient: Subsequent: Total time with patient: Less than 25 minutes Total Critical Care Time: 25 (MINS)
[2022-07-01] MEDS: DIGOXIN 125 MCG TABLET PO SCH (14:16)
--- NOTE | 2022-07-01 15:27 | General Surgery Consult Note ---
HPI Date of Consult Consult Date: 07/01/22 Requesting physician: William Cotton Consult Narrative Patient Information: Note initiated : 07/01/22 at 3:15 pm Service Date, if different from initiated Date: [] Patient: Jaxon Gross 62 y/o M admitted on 06/25/22 for leg infection. Chief Complaint: [] Chief complaint: Evaluation of patient admitted Sepsis CSSSI. Debridement of blisters RLE. Reason for consult: Wound Care and Wound Management. cc:: Dr. Cotton. Constitutional Constitutional: Present other (Admitted via ER due to SEPSIS, with leucocytosis, hyperglycemia, SVETLANA elevated Creatinine and later elevated serum lactate levels. ) Integumentary Integumentary: Present other (CELLULITIS around RIGHT LE, Improvinng. NOW developed epidermolysis and blisters along RIGHT lower medial leg.) PFSH PFSH All Active Problems Thrombophlebitis of right lower extremity (Acute) Bacteremia due to Streptococcus (Acute) Anemia, normocytic normochromic (Acute) Atrial fibrillation (Acute) Sepsis (Acute) Cellulitis of leg, right (Acute) Acute hypotension (Acute) SVETLANA (acute kidney injury) (Acute) Lactic acidosis (Acute) Hyperglycemia (Acute) BPH loc w urin obs/LUTS (Acute) Gross hematuria (Acute) Incomplete bladder emptying (Acute) Social History smoking status: Never smoker MEDS/ALLERGIES Home Medications and Allergies Home Medications Medication Instructions Recorded Confirmed Type ibuprofen 200 mg capsule 800 mg PO Q8H PRN Pain 06/25/22 06/26/22 History melatonin 10 mg PO QHS PRN Insomnia 06/25/22 06/26/22 History prednisone 20 mg tablet 3 tab PO QDAY 06/25/22 06/26/22 History Allergies Allergy/AdvReac Type Severity Reaction Status Date / Time No Known Drug Allergies Allergy Verified 06/26/22 06:45 Physical Examination Vital Signs Vital signs: Temp Pulse Resp BP Pulse Ox O2 Del Method O2 Flow Rate 98.4 F 84 20 139/72 95 0 07/01/22 12:00 07/01/22 12:00 07/01/22 12:00 07/01/22 12:00 07/01/22 12:00 07/01/22 12:00 06/30/22 00:17 General physical appearance General physical exam: well developed, well nourished, no distress and moderate pain (Minimal discomfort around RIGHT lower medial leg around blister site. ) Eyes Eye exam: PERRL ENT ENT exam: normal pinna, normal mucosa and no congestion Head Head exam IM: Present atraumatic and normocephalic Neck Neck exam: no masses and no venous distension Cardiovascular Cardiovascular exam IM: Present normal rate and rhythm Respiratory Respiratory exam: normal expansion and clear to auscultation Abdomen Abdomen: Present soft, non tender and bowel sounds Genitourinary Genitourinary (Male): Present other (Catheter draining clear urine after an epidsode of hematuria.) Integumentary Integumentary: Present other (Resolving cellulitis around RIGHT medial leg from ankle upto upper calf. Bleb / Blister RIGHT lower medial leg. ) Neurologic Neurologic: Present normal coordination and normal sensation Musculoskeletal Musculoskeletal: Present other (Ambulated to bathroom with a walker. ) Psychiatric Psychiatric: Present oriented to time, oriented to person, oriented to place, speech is normal and memory intact Additional Findings Additional exam: Epidermolysis as the cellulitis and acute inflammatory changes are resolving. Blood c/s Strep pyogenes. Reviewed Infectious Disease Management (Telemedicine) Results Labs Result diagrams: 07/01/22 05:27 07/01/22 05:27 Labs: Abnormal lab results 07/01/22 07/01/22 Range/Units 05:27 05:27 WBC 21.1 H (4.5-11.0) K/mcL RBC 3.61 L (4.63-6.08) M/mcL Hgb 12.1 L (13.7-17.5) g/dL Hct 35.1 L (40.1-51.0) % Immature Gran % (Auto) 4.8 H (0.0-0.5) % [place] # (Auto) 1.07 H (0.10-0.90) K/mcL Immature Gran # 1.01 H (0.00-0.05) K/mcl Absolute Neutrophils 15.24 H (1.80-8.00) K/mcL Sodium 130 L (133-145) mmol/L Glucose 107 H (70-105) mg/dL Calcium 7.4 L (8.6-10.4) mg/dL AST 49 H (<40) U/L ALT 57 H (<40) U/L Alkaline Phosphatase 244 H (39-117) U/L Albumin 2.0 L (3.2-5.2) gm/dL Globulin 4.1 H (2.2-3.7) gm/dL Albumin/Globulin Ratio 0.5 L (1.0-2.3) Diabetes panel 07/01/22 Range/Units 05:27 Sodium 130 L (133-145) mmol/L Potassium 3.8 (3.3-5.1) mmol/L Chloride 99 (96-108) mmol/L Carbon Dioxide 23 (22-30) mmol/L BUN 10 (8-23) mg/dL Creatinine 0.8 (0.7-1.2) mg/dL Glucose 107 H (70-105) mg/dL Calcium 7.4 L (8.6-10.4) mg/dL AST 49 H (<40) U/L ALT 57 H (<40) U/L Alkaline Phosphatase 244 H (39-117) U/L Total Protein 6.1 (5.9-8.4) gm/dL Albumin 2.0 L (3.2-5.2) gm/dL Calcium panel 07/01/22 Range/Units 05:27 Calcium 7.4 L (8.6-10.4) mg/dL Albumin 2.0 L (3.2-5.2) gm/dL Pituitary panel 07/01/22 Range/Units 05:27 Sodium 130 L (133-145) mmol/L Potassium 3.8 (3.3-5.1) mmol/L Chloride 99 (96-108) mmol/L Carbon Dioxide 23 (22-30) mmol/L BUN 10 (8-23) mg/dL Creatinine 0.8 (0.7-1.2) mg/dL Glucose 107 H (70-105) mg/dL Calcium 7.4 L (8.6-10.4) mg/dL Adrenal panel 07/01/22 Range/Units 05:27 Sodium 130 L (133-145) mmol/L Potassium 3.8 (3.3-5.1) mmol/L Chloride 99 (96-108) mmol/L Carbon Dioxide 23 (22-30) mmol/L BUN 10 (8-23) mg/dL Creatinine 0.8 (0.7-1.2) mg/dL Glucose 107 H (70-105) mg/dL Calcium 7.4 L (8.6-10.4) mg/dL Total Bilirubin 0.9 (0.1-1.0) mg/dL AST 49 H (<40) U/L ALT 57 H (<40) U/L Alkaline Phosphatase 244 H (39-117) U/L Total Protein 6.1 (5.9-8.4) gm/dL Albumin 2.0 L (3.2-5.2) gm/dL All other labs normal. A/P Narrative A/P Narrative: Assessment: SEPSIS / SIRS due to CSSSI RIGHT lower leg Cellulitis. (Blood c/s Strep pyogenes) Thrombophlebitis around RIGHT lower medial leg. Epidermolysis (Blebs / Blisters RIGHT lower medial leg.) HEMATURIA (Resolved) S/B Dr. Reese (Urologist) SVETLANA (Improved) Leucocytosis persists, (Antibiotics adjusted by Infectious Disease Service Plan of Treatment: Plan: Debridement of blister and tissue for c/s. Local wound care, Medical management per Hospitalist. Will follow from Wound Care point of view Local wound care reviewed with Wound care nurse. Time Spent With Patient Time: Total time spent is greater than 50% in coordination of care (as documented) at patient's floor/unit and/or counseling patient: Initial: Total time with patient: 75 - 90 minutes
--- NOTE | 2022-07-01 15:58 | General Surgery Procedure Note ---
Date of procedure: Note initiated : 07/01/22 at 3:46 pm Service Date, if different from initiated Date: [] Pre-op diagnosis: Resolving Cellulitis RIGHT medial leg. BLISTER lower medial leg / ankle Post-op diagnosis: same Procedure: Bedside debridement. Tissue obtained for c/s. Findings: LYMPHEDEMA, Thrombophlebitis of GSV region, Stage 2 Blister involving Epidermis and Dermis. 6.0 x 3.5 x 1.5 CM Nonviable overlying epidermis and dermis. Anesthesia: none Surgeon: Chuck Becerra Estimated blood loss: 0 Description of procedure: Excision debridement of devitalized skin. Tissue sent of c/s. Condition: stable Disposition: floor
--- NOTE | 2022-07-01 16:17 | Procedure Note ---
DATE OF PROCEDURE: 07/01/2022 PREPROCEDURE DIAGNOSES: 1. Resolving cellulitis along lower medial right leg. 2. Thrombophlebitis, improving. 3. Acute kidney injury, resolved. 4. Sepsis due to complicated skin and skin structure infection, gradually resolving. 5. Epidermolysis with fluid-filled blister along the right medial leg above the medial malleolus. Dimensions 6 x 3.5 x 1.5 cm. POSTPROCEDURE DIAGNOSES: 1. Resolving cellulitis along lower medial right leg. 2. Thrombophlebitis, improving. 3. Acute kidney injury, resolved. 4. Sepsis due to complicated skin and skin structure infection, gradually resolving. 5. Epidermolysis with fluid-filled blister along the right medial leg above the medial malleolus. Dimensions 6 x 3.5 x 1.5 cm. PROCEDURE: 1. Selective debridement of devitalized skin over the blister. 2. Deep tissue from the wound base obtained for culture and sensitivity. INDICATIONS FOR PROCEDURE: This is a 62-year-old gentleman admitted via emergency room about a week ago. He had fever, leukocytosis, hyperglycemia, acute kidney injury with elevated creatinine and subsequently with elevated lactic acid. Since admission, this has gradually improved. Leukocytosis had started to trend down, but has again gone up. Antibiotics were adjusted by the infectious disease ergonomics consultant via telemedicine recommendations. The patient developed an episode of hematuria, which has since cleared. He was seen by Dr. Shay Reese, urologist, who is planning on seeing the patient after discharge for an outpatient cystoscopy. PROCEDURE NOTE IN DETAIL: I carried out this procedure at the bedside with help from Leslye Grimes RN inpatient wound care nurse. The area was widely cleaned, prepped, and draped. We used chlorhexidine prep. The blister and the devitalized skin was debrided using pickup and scissors. All nonviable skin was sharply excised. The wound base was gently curetted with a #3 curette. At this point, we obtained deep tissue cultures specimens for culture and sensitivity. Dressings consisted of SilvaSorb, Adaptic gauze, ABD pad, Kerlix, and Coban. I will be following this patient, along with the wound care team. Further recommendations as the condition evolves. I agree with current ongoing management for this patient. VD:marianne Job ID: [id number] Doc ID: [id number] Chuck Becerra MD MTDD
[2022-07-02] MEDS: oxyCODONE/APAP 5/325MG TABLET PO PRN ×5 (03:40→21:59)
[2022-07-02] MEDS: CLINDAMYCIN IN 0.9 % SOD CHLOR 600 MG/50 ML BAG IV SCH ×3 (05:36→21:26)
[2022-07-02] MEDS: 0.9 % SODIUM CHLORIDE 10 ML SYRINGE IV SCH ×3 (06:08→21:27)
[2022-07-02] MEDS: cefTRIAXone 2 GM in DEXTROSE 5% IN WATER 50 ML IV SCH (06:08)
[2022-07-02 07:16] LABS: Basophils # (Auto) 0.09 K/mcL (0.00-0.30); Basophils % (Auto) 0.6 % (0.0-2.0); Eosinophils # (Auto) 0.31 K/mcL (0.00-0.70); Eosinophils % (Auto) 2.2 % (0.0-7.0); Hematocrit 34.6 % (40.1-51.0); Lymphocytes # (Auto) 2.83 K/mcL (1.50-4.80); Lymphocytes % (Auto) 19.7 % (15.5-49.0); Mean Cell Volume 96.4 fL (80.0-100.0); Mean Corpuscular HGB Conc 34.7 g/dL (31.0-36.0); Mean Platelet Volume 10.1 fL (8.8-12.5); Monocytes # (Auto) 0.76 K/mcL (0.10-0.90); Monocytes % (Auto) 5.3 % (1.0-12.0); Neutrophils % (Auto) 67.7 % (38.0-78.0); Platelet Count 316 K/mcL (140-440); RBC 3.59 M/mcL (4.63-6.08); Red Cell Distribution Width 13.2 % (11.5-14.5); WBC 14.4 K/mcL (4.5-11.0)
[2022-07-02 07:29] LABS: ALT/SGPT 39 U/L (<40); AST/SGOT 30 U/L (<40); Albumin 2.2 gm/dL (3.2-5.2); Albumin/Globulin Ratio 0.6 (1.0-2.3); Alkaline Phosphatase 203 U/L (39-117); Bilirubin,Total 0.7 mg/dL (0.1-1.0); Blood Urea Nitrogen 7 mg/dL (8-23); Calcium 7.3 mg/dL (8.6-10.4); Carbon Dioxide 28 mmol/L (22-30); Chloride 102 mmol/L (96-108); Glomerular Filtration Rate 95; Glucose 103 mg/dL (70-105)
[2022-07-02] MEDS: LINEZOLID 600 MG TABLET PO SCH ×2 (09:19→21:26)
[2022-07-02] MEDS: APIXABAN 5 MG TABLET PO SCH ×2 (09:19→21:27)
[2022-07-02] MEDS: METOPROLOL SUCCINATE 25 MG TAB.XL.24H PO SCH ×2 (09:19→21:27)
[2022-07-02] MEDS: DOCUSATE SODIUM 100 MG CAPSULE PO SCH ×2 (09:25→21:27)
--- NOTE | 2022-07-02 10:40 | Internal Med Progress Note ---
SUBJECTIVE Subjective Patient information: Note initiated : 07/02/22 at 10:38 am Service Date, if different from initiated Date: [] Patient: Jaxon Gross 62 y/o M admitted on 06/25/22 for leg infection. Chief Complaint: [] Principal diagnosis: Sepsis Interval history: 06/29: Fever Tmax 38.3 overnight. Repeat blood culture no growth to date. IV pyelogram no acute findings. Blood pressure been okay overnight. Patient is complain of mild burning pain of the right lower extremity at rest which became severe when he tried to move his leg or when it is being touched. He also is complaining of subjective fever and shaking chills. Downgraded patient to [facility] with telemetry. Continue to work with infectious disease specialist. Continue Rocephin and IV clindamycin. Add Eliquis as anticoagulations for thrombophlebitis. Continue physical therapy evaluation and treatment. 06/30: Low grade fever Tmax 37.8 overnight. Repeat blood culture no growth to date. ID Dr. Ryan added Zyvox in addition to Rocephin and Clindamycin. WBC down from 21.7 to 19.5. H/H stable. No reported black stool or bloody stool. Patient is coming of chills overnight. Patient is coming of burning sensation of the right lower extremities. Stay in inpatient med surg telemetry. Continue to work with infectious disease specialist Dr. Ryan, recs. appreciated. Continue Zyvox, Rocephin and IV clindamycin. Continue Eliquis as anticoagulations for thrombophlebitis. Continue physical therapy evaluation and treatment. 07/01: Low grade fever 37.3 overnight. Repeat blood culture no growth to date. WBC 21.1 this morning. Patient is c/o pain of right legs. Denies fever, chills, or sweating. Stay in inpatient med surg telemetry. Continue to work with infectious disease specialist Dr. Ryna, recs. appreciated. Consult Dr. Becerra for wound care, recs. appreciated. Continue Zyvox, Rocephin and IV clindamycin. Continue Eliquis as anticoagulations for thrombophlebitis. Continue physical therapy evaluation and treatment. 07/02: Afebrile overnight. Repeat blood culture no growth to date. WBC 14.4 this morning. s/p wound I&D by Dr. Becerra with wound culture on 07/01. Patient is c/o back rash with itchiness. Patient is c/o pain of right legs. Denies fever, chills, or sweating. Stay in inpatient med surg telemetry. Continue to work with infectious disease specialist, layne. appreciated. Consider de-escalate antibiotics with clinical improvement. Watch for diarrhea while patient is on Clindamycin. Continue to work with Dr. Becerra regarding wound care. Continue Eliquis as anticoagulations for thrombophlebitis. Benadryl PRN itchiness. Continue physical therapy evaluation and treatment. Constitutional Vitals: Vital Signs Temp Pulse Resp BP Pulse Ox O2 Del Method O2 Flow Rate 36.1 C 81 18 152/74 94 0 07/02/22 08:00 07/02/22 08:00 07/02/22 08:00 07/02/22 08:00 07/02/22 08:00 07/02/22 08:00 06/30/22 00:17 Period Temp Pulse Resp BP Sys/Nj Pulse Ox O2 Del Method O2 Flow Rate Last 24 Hr 36.1 C-37.1 C 80-85 18-22 128-152/66-78 93-95 Room Air-Room Air Intake and Output 07/01/22 07/02/22 07/02/22 19:59 03:59 11:59 Intake Total 290 450 100 Output Total 2200 1100 300 Balance -1910 -650 -200 Weight 88.541 kg Intake & Output: Intake & Output 07/01/22 07/02/22 07/02/22 19:59 03:59 11:59 Intake Total 290 450 100 Output Total 2200 1100 300 Balance -1910 -650 -200 Weight 88.541 kg Intake: IV 50 50 100 Rocephin 2 gm In Dextrose 5% in 50 Water 50 ml @ 100 mls/hr IV Q24H [facility] Rx#:[id number] Oral 240 400 Output: Urine Catheter Amount 2200 1100 Void Amount 300 Other: Meal Lunch Percent of Meal Consumed 25% Feeding Ability Assist with Tray Set Up Urine Appearance Clear Clear Uretheral (Forrester) Clear Urine Color Yellow Yellow Uretheral (Forrester) Bright Yellow Urine Odor Strong Stool Size Moderate Moderate Stool Color Brown Brown Black Stool Consistency Soft Liquid Liquid Loose # Bowel Movements 1 1 Head Head exam: Present atraumatic and normal inspection Eye Eye exam: Present normal appearance ENT ENT exam: Present mucous membranes moist, normal exam and normal external ear exam Neck Neck exam: Present normal inspection Respiratory Respiratory exam: Present normal respiratory exam Cardiovascular Cardiovascular exam: Present normal rate and rhythm GI/Abdominal GI/Abdominal exam: Present normal bowel sounds Additional comments: Forrester catheter in place Back Exam Back exam: Present normal inspection Neurological Exam Neurological exam: Present alert and oriented X3 Skin Skin exam: Present erythema, rash and warm; Absent intact Additional comments: Erythematic rashes, sub-centimeter, on entire back Right lower extremity wrapped by wound dressing OBJ DATA Labs CBC & Chem 7: 07/02/22 05:40 07/02/22 05:40 Labs: Abnormal Lab Results 07/02/22 07/02/22 07/01/22 05:40 05:40 05:27 WBC 14.4 H RBC 3.59 L Hgb 12.0 L Hct 34.6 L Immature Gran % (Auto) 4.5 H [place] # (Auto) Immature Gran # 0.65 H Absolute Neutrophils 9.72 H Sodium 130 L Anion Gap 5.0 L BUN 7 L Glucose 107 H Calcium 7.3 L 7.4 L AST 49 H ALT 57 H Alkaline Phosphatase 203 H 244 H Total Protein Albumin 2.2 L 2.0 L Globulin 4.0 H 4.1 H Albumin/Globulin Ratio 0.6 L 0.5 L 07/01/22 06/30/22 06/30/22 05:27 05:08 05:08 WBC 21.1 H 19.5 H RBC 3.61 L 3.62 L Hgb 12.1 L 12.1 L Hct 35.1 L 35.5 L Immature Gran % (Auto) 4.8 H 5.2 H [place] # (Auto) 1.07 H 0.98 H Immature Gran # 1.01 H 1.01 H Absolute Neutrophils 15.24 H 13.68 H Sodium Anion Gap BUN Glucose 109 H Calcium 7.4 L AST 66 H ALT 66 H Alkaline Phosphatase 171 H Total Protein 5.6 L Albumin 1.9 L Globulin Albumin/Globulin Ratio 0.5 L Meds: Medications Acetaminophen (Acetaminophen 325 Mg Tablet) 650 mg PO Q6HP PRN; Protocol PRN Reason: Per Pain Protocol/Fever > 101 Last Admin: 06/30/22 17:26 Dose: 650 mg Apixaban (Apixaban 5 Mg Tablet) 5 mg PO BID [facility] Last Admin: 07/02/22 09:19 Dose: 5 mg Belladonna/Phenobarbital (Phenobarb/Hyoscy/Atropine/Scop 1 Dose Bottle) 1 dose PO Q4HP PRN PRN Reason: Dyspepsia Last Admin: 06/27/22 17:16 Dose: 1 dose Digoxin (Digoxin 125 Mcg Tablet) 125 mcg PO DAILY@1400 [facility] Last Admin: 07/01/22 14:16 Dose: 125 mcg Diphenhydramine HCl (Diphenhydramine 25 Mg Capsule) 50 mg PO Q6HP PRN PRN Reason: Allergic Symptoms Docusate Sodium (Docusate Sodium 100 Mg Capsule) 100 mg PO BID [facility] Last Admin: 07/02/22 09:25 Dose: Not Given CLINDAMYCIN IN 0.9 % SOD CHLOR (Clindamycin 600 Mg/50 Ml-Ns) 600 mg in 50 mls @ 100 mls/hr IV Q8H [facility] Last Infusion: 07/02/22 06:08 Dose: Infused Ceftriaxone Sodium 2 gm/ (Dextrose) 50 mls @ 100 mls/hr IV Q24H [facility] Last Infusion: 07/02/22 09:25 Dose: Infused Ibuprofen (Ibuprofen 800 Mg Tablet) 800 mg PO Q8HP PRN PRN Reason: Pain Last Admin: 07/01/22 19:05 Dose: 800 mg Lactulose (Lactulose 20 Gm/30 Ml Oral.Gilda) 10 gm PO DAILYP PRN PRN Reason: Constipation Linezolid (Linezolid 600 Mg Tablet) 600 mg PO Q12 [facility]; Protocol Last Admin: 07/02/22 09:19 Dose: 600 mg Melatonin (Melatonin 3 Mg Tablet) 9 mg PO HSP PRN PRN Reason: Insomnia Last Admin: 06/30/22 20:25 Dose: 9 mg Metoprolol Succinate (Metoprolol Succinate 25 Mg Tab.Xl.24h) 12.5 mg PO BID [facility] Last Admin: 07/02/22 09:19 Dose: 12.5 mg Morphine Sulfate (Morphine 2 Mg/Ml Vial) 2 - 4 mg IV Q4HP PRN; Protocol PRN Reason: Per Pain Protocol Last Admin: 07/01/22 02:13 Dose: 4 mg Ondansetron HCl (Ondansetron 4 Mg/2 Ml Vial) 4 mg IV Q4HP PRN; Protocol PRN Reason: Nausea And Vomiting Oxycodone/Acetaminophen (Oxycodone/Apap 5/325mg Tablet) 1 tab PO Q4HP PRN; Protocol PRN Reason: Per Pain Protocol Last Admin: 07/02/22 07:48 Dose: 1 tab Senna (Sennosides 1 Tablet) 2 tab PO HSP PRN PRN Reason: Constipation Sodium Chloride (0.9 % Sodium Chloride 10 Ml Syringe) 10 ml IV Q8 [facility] Last Admin: 07/02/22 06:08 Dose: 10 ml A/P Assessment and plan (1) Bacteremia due to Streptococcus: Status: Acute (2) Cellulitis of leg, right: Status: Acute (3) Sepsis: Status: Acute Qualifiers: Sepsis acute organ dysfunction status: without acute organ dysfunction Sepsis type: sepsis due to unspecified organism Qualified Code(s): A41.9 - Sepsis, unspecified organism (4) Atrial fibrillation: Status: Acute (5) Anemia, normocytic normochromic: Status: Acute (6) Thrombophlebitis of right lower extremity: Status: Acute (7) Gross hematuria: Status: Acute Narrative A/P Narrative: Assessment and Plans: 1. Right leg cellulitis, right distal greater saphenous vein thrombophlebitis, with associated group A strep bacteremia, clinical sepsis: Stays in med surg telemetry Consulting ID specialist, recs. appreciated Consulting general surgeon Dr. Robledo, recs. appreciated Consulting Dr. Becerra for wound care, recs. appreciated Repeat blood culture no growth to date TTE no evidence of endocarditis Eliquis for right distal greater saphenous vein thrombophlebitis Continue Rocephin Continue Clindamycin IV Continue Zyvox Consider de-escalate antibiotics therapy with clinical improvement Tylenol Percocet Ibuprofen Morphine Benadryl cbc w/ auto diff in the morning to trend WBC Physical therapy evaluation and treatment 2. Atrial fibrillation: Converted back to normal sinus rhythm Toprol XL Digoxin Eliquis 3. Acute kidney injury: Kidney functions back to baseline 4. Gross hematuria: Urology consulted, outpatient follow up with potential cystoscopy IV pyelogram no acute intraabdominal/pelvic pathologies d/c Forrester catheter prior to hospital discharge 5. Anemia, normocytic normochromic: cbc w/ auto diff in the morning to trend H/H GI ppx: Not currently indicated DVT ppx: Eliquis Code status: Full Prognosis: guarded Disposition: inpatient med surg tele; PT Plan of Treatment: Plan: Debridement of blister and tissue for c/s. Local wound care, Medical management per Hospitalist. Will follow from Wound Care point of view Local wound care reviewed with Wound care nurse. Time Spent With Patient Time: Total time spent is greater than 50% in coordination of care (as documented) at patient's floor/unit and/or counseling patient: Subsequent: Total time with patient: 35 - 49 minutes
--- NOTE | 2022-07-02 11:27 | General Surgery Progress Note ---
SUBJECTIVE Subjective Patient information: Note initiated : 07/02/22 at 11:23 am Service Date, if different from initiated Date: [] Patient: Jaxon Gross 62 y/o M admitted on 06/25/22 for leg infection. Chief Complaint: [] Principal diagnosis: Sepsis Additional PMFSH (Level 3 Only): Patient seen with Leslye Grimes RN. RIGHT lower leg wound site examined. Constitutional Vitals: Vital Signs Temp Pulse Resp BP Pulse Ox O2 Del Method O2 Flow Rate 97.0 F 81 18 152/74 94 0 07/02/22 08:00 07/02/22 08:00 07/02/22 08:00 07/02/22 08:00 07/02/22 08:00 07/02/22 08:00 06/30/22 00:17 Period Temp Pulse Resp BP Sys/Nj Pulse Ox O2 Del Method O2 Flow Rate Last 24 Hr 97.0 F-98.7 F 80-85 18-22 128-152/66-78 93-95 Room Air-Room Air Intake and Output 07/01/22 07/02/22 07/02/22 19:59 03:59 11:59 Intake Total 290 450 100 Output Total 2200 1100 300 Balance -1910 -650 -200 Weight 195 lb 3.2 oz Intake & Output: Intake & Output 07/01/22 07/02/22 07/02/22 19:59 03:59 11:59 Intake Total 290 450 100 Output Total 2200 1100 300 Balance -1910 -650 -200 Weight 195 lb 3.2 oz Intake: IV 50 50 100 Rocephin 2 gm In Dextrose 5% in 50 Water 50 ml @ 100 mls/hr IV Q24H [facility] Rx#:[id number] Oral 240 400 Output: Urine Catheter Amount 2200 1100 Void Amount 300 Other: Meal Lunch Percent of Meal Consumed 25% Feeding Ability Assist with Tray Set Up Urine Appearance Clear Clear Uretheral (Forrester) Clear Urine Color Yellow Yellow Uretheral (Forrester) Bright Yellow Urine Odor Strong Stool Size Moderate Moderate Stool Color Brown Brown Black Stool Consistency Soft Liquid Liquid Loose # Bowel Movements 1 1 Exam: No changes CARISSA. WOUND site VLU Right lower medial leg is clean Granulating wound bed. Wound site Gram Stain. NO organisms seen. Cultures pending. WBC trending down. Creatinine is normal A/P Narrative A/P Narrative: Assessment: Satisfactory progress from wound care point. Plan of Treatment: Plan: Continue ongoing wound care per orders. Time Spent With Patient Time: Total time spent is greater than 50% in coordination of care (as documented) at patient's floor/unit and/or counseling patient:
[2022-07-02] MEDS: DIGOXIN 125 MCG TABLET PO SCH (13:40)
--- NOTE | 2022-07-02 13:57 | Internal Med Progress Note ---
SUBJECTIVE Subjective Patient information: Note initiated : 07/02/22 at 1:55 pm Service Date, if different from initiated Date: [] Patient: Jaxon Gross 62 y/o M admitted on 06/25/22 for leg infection. Chief Complaint: f/u GAS bacteremia secondary to RLE cellulitis leukocytosis Principal diagnosis: Sepsis Pertinent ROS: Refers new onset itchy rash in his back, improvement in movement of the foot at the ankle area but still some episodes of pain in his leg, no chills Constitutional Vitals: Vital Signs Temp Pulse Resp BP Pulse Ox O2 Del Method O2 Flow Rate 97.4 F 91 H 18 137/89 97 0 07/02/22 12:00 07/02/22 12:00 07/02/22 12:00 07/02/22 12:00 07/02/22 12:00 07/02/22 12:00 06/30/22 00:17 Period Temp Pulse Resp BP Sys/Nj Pulse Ox O2 Del Method O2 Flow Rate Last 24 Hr 97.0 F-98.7 F 80-91 18-22 128-152/66-89 93-97 Room Air-Room Air Intake and Output 07/02/22 07/02/22 07/02/22 03:59 11:59 19:59 Intake Total 450 100 50 Output Total 0272 493 6287 Balance -650 -200 -1250 Intake & Output: Intake & Output 07/02/22 07/02/22 07/02/22 03:59 11:59 19:59 Intake Total 450 100 50 Output Total 7303 156 0653 Balance -650 -200 -1250 Intake: IV 50 100 50 Rocephin 2 gm In Dextrose 5% in 50 Water 50 ml @ 100 mls/hr IV Q24H [facility] Rx#:[id number] Oral 400 Output: Urine Catheter Amount 1100 1300 Void Amount 300 Other: Urine Appearance Clear Uretheral (Forrester) Clear Urine Color Yellow Uretheral (Forrester) Yellow Stool Size Moderate Small Stool Color Brown Black Stool Consistency Liquid # Bowel Movements 1 1 General appearance: cooperative and no acute distress Head Head exam: Present normocephalic Eye Eye exam: Present EOMI and PERRL ENT ENT exam: Present mucous membranes moist Neck Neck exam: Present full ROM Respiratory Respiratory exam: Present normal respiratory exam Expanded Lower Extremity Exam Lower leg exam: Present erythema and swelling Leg image: 1. Improving redness and erythema. Open wound in distal medial side of right lower extremity draining serosanguinous fluid. Expanded Back Exam Back image: 1. Presence of raised bumps in upper back Neurological Exam Neurological exam: Present alert and oriented X3 Skin Skin exam: Present rash Additional comments: localized raised bumps in upper back described by patient as itchy OBJ DATA Labs CBC & Chem 7: 07/02/22 05:40 07/02/22 05:40 Labs: Abnormal Lab Results 07/02/22 07/02/22 07/01/22 05:40 05:40 05:27 WBC 14.4 H RBC 3.59 L Hgb 12.0 L Hct 34.6 L Immature Gran % (Auto) 4.5 H Butts # (Auto) Immature Gran # 0.65 H Absolute Neutrophils 9.72 H Sodium 130 L Anion Gap 5.0 L BUN 7 L Glucose 107 H Calcium 7.3 L 7.4 L AST 49 H ALT 57 H Alkaline Phosphatase 203 H 244 H Total Protein Albumin 2.2 L 2.0 L Globulin 4.0 H 4.1 H Albumin/Globulin Ratio 0.6 L 0.5 L 07/01/22 06/30/22 06/30/22 05:27 05:08 05:08 WBC 21.1 H 19.5 H RBC 3.61 L 3.62 L Hgb 12.1 L 12.1 L Hct 35.1 L 35.5 L Immature Gran % (Auto) 4.8 H 5.2 H Butts # (Auto) 1.07 H 0.98 H Immature Gran # 1.01 H 1.01 H Absolute Neutrophils 15.24 H 13.68 H Sodium Anion Gap BUN Glucose 109 H Calcium 7.4 L AST 66 H ALT 66 H Alkaline Phosphatase 171 H Total Protein 5.6 L Albumin 1.9 L Globulin Albumin/Globulin Ratio 0.5 L Meds: Medications Acetaminophen (Acetaminophen 325 Mg Tablet) 650 mg PO Q6HP PRN; Protocol PRN Reason: Per Pain Protocol/Fever > 101 Last Admin: 06/30/22 17:26 Dose: 650 mg Apixaban (Apixaban 5 Mg Tablet) 5 mg PO BID SISSY Last Admin: 07/02/22 09:19 Dose: 5 mg Belladonna/Phenobarbital (Phenobarb/Hyoscy/Atropine/Scop 1 Dose Bottle) 1 dose PO Q4HP PRN PRN Reason: Dyspepsia Last Admin: 06/27/22 17:16 Dose: 1 dose Digoxin (Digoxin 125 Mcg Tablet) 125 mcg PO DAILY@1400 [facility] Last Admin: 07/02/22 13:40 Dose: 125 mcg Diphenhydramine HCl (Diphenhydramine 25 Mg Capsule) 50 mg PO Q6HP PRN PRN Reason: Allergic Symptoms Docusate Sodium (Docusate Sodium 100 Mg Capsule) 100 mg PO BID [facility] Last Admin: 07/02/22 09:25 Dose: Not Given CLINDAMYCIN IN 0.9 % SOD CHLOR (Clindamycin 600 Mg/50 Ml-Ns) 600 mg in 50 mls @ 100 mls/hr IV Q8H [facility] Last Infusion: 07/02/22 13:40 Dose: Infused Ceftriaxone Sodium 2 gm/ (Dextrose) 50 mls @ 100 mls/hr IV Q24H [facility] Last Infusion: 07/02/22 09:25 Dose: Infused Ibuprofen (Ibuprofen 800 Mg Tablet) 800 mg PO Q8HP PRN PRN Reason: Pain Last Admin: 07/01/22 19:05 Dose: 800 mg Lactulose (Lactulose 20 Gm/30 Ml Oral.Gilda) 10 gm PO DAILYP PRN PRN Reason: Constipation Linezolid (Linezolid 600 Mg Tablet) 600 mg PO Q12 [facility]; Protocol Last Admin: 07/02/22 09:19 Dose: 600 mg Melatonin (Melatonin 3 Mg Tablet) 9 mg PO HSP PRN PRN Reason: Insomnia Last Admin: 06/30/22 20:25 Dose: 9 mg Metoprolol Succinate (Metoprolol Succinate 25 Mg Tab.Xl.24h) 12.5 mg PO BID [facility] Last Admin: 07/02/22 09:19 Dose: 12.5 mg Morphine Sulfate (Morphine 2 Mg/Ml Vial) 2 - 4 mg IV Q4HP PRN; Protocol PRN Reason: Per Pain Protocol Last Admin: 07/01/22 02:13 Dose: 4 mg Ondansetron HCl (Ondansetron 4 Mg/2 Ml Vial) 4 mg IV Q4HP PRN; Protocol PRN Reason: Nausea And Vomiting Oxycodone/Acetaminophen (Oxycodone/Apap 5/325mg Tablet) 1 tab PO Q4HP PRN; Protocol PRN Reason: Per Pain Protocol Last Admin: 07/02/22 12:40 Dose: 1 tab Senna (Sennosides 1 Tablet) 2 tab PO HSP PRN PRN Reason: Constipation Sodium Chloride (0.9 % Sodium Chloride 10 Ml Syringe) 10 ml IV Q8 SISSY Last Admin: 07/02/22 13:40 Dose: 10 ml A/P Assessment and plan (1) Rash and nonspecific skin eruption: Assessment and plan: 62y/o pleasant male presented to emergency room on 06/25/22 with 5 day history of right lower extremity swelling, pain. Denies previous trauma to his leg. Noted some blister in his right medial leg with associated erythema and pain above the ankle, fever 1 week prior.Treated for shingles by PCP but came to ED after presenting with fever, tachycardia and hypotension. Creatinine was 1.8 (downtrended to 0.8), leukocytosis has now started to downtrend (21k > 14k).Started on Zosyn and clindamycin. Blood culture growing Group A Streptococcus pyogenes. Seen by ID, switched to Penicillin + Clindamycin. Penicillin was not available, so pt is on Ceftriaxone instead. CT RLE+ moderate cellulitis, no myositis. Added Zyvox to current tx. Pt noted today with itchy rash in his upper back, does refer having itchiness in the back a couple of days ago but did not make much of it because his leg pain was more concerning. He denies allergies. Plan: - discontinue Ceftriaxone - discontinue Clindamycin - keep Zyvox 600mg PO q12hrs to complete total 14 days starting from negative blood cultures on 06/26/22 - monitor skin rash closely as Ceftriaxone will be discontinued - follow up with wound care Status: Acute (2) Bacteremia due to Streptococcus: Status: Acute (3) Leukocytosis (leucocytosis): Status: Acute Narrative Plan of Treatment: Plan: Continue ongoing wound care per orders. Time Spent With Patient Time: Total time spent is greater than 50% in coordination of care (as documented) at patient's floor/unit and/or counseling patient: Subsequent: Total time with patient: 25 - 34 minutes Total Critical Care Time: 30 (mins)
[2022-07-02] MEDS ORDERED: POLYETHYLENE GLYCOL 3350 17 GM PACKET PO PRN (20:54)
[2022-07-02] MEDS: IBUPROFEN 800 MG TABLET PO PRN (21:26)
[2022-07-02] MEDS: diphenhydrAMINE 25 MG CAPSULE PO PRN (22:01)
[2022-07-03] MEDS: cefTRIAXone 2 GM in DEXTROSE 5% IN WATER 50 ML IV SCH (04:56)
[2022-07-03] MEDS: 0.9 % SODIUM CHLORIDE 10 ML SYRINGE IV SCH ×4 (04:56→21:26)
[2022-07-03] MEDS: oxyCODONE/APAP 5/325MG TABLET PO PRN ×2 (05:07→21:25)
[2022-07-03] MEDS: CLINDAMYCIN IN 0.9 % SOD CHLOR 600 MG/50 ML BAG IV SCH (05:28)
[2022-07-03] MEDS ORDERED: cefTRIAXone 2 GM VIAL ONE (07:17)
[2022-07-03] MEDS: DOCUSATE SODIUM 100 MG CAPSULE PO SCH ×2 (07:26→20:50)
[2022-07-03] MEDS: APIXABAN 5 MG TABLET PO SCH ×2 (07:27→20:50)
[2022-07-03] MEDS: diphenhydrAMINE 25 MG CAPSULE PO PRN ×2 (07:27→21:25)
[2022-07-03] MEDS: METOPROLOL SUCCINATE 25 MG TAB.XL.24H PO SCH ×2 (07:27→20:50)
[2022-07-03] MEDS: LINEZOLID 600 MG TABLET PO SCH ×2 (07:27→20:50)
[2022-07-03 07:43] LABS: Basophils # (Auto) 0.07 K/mcL (0.00-0.30); Basophils % (Auto) 0.6 % (0.0-2.0); Eosinophils % (Auto) 2.4 % (0.0-7.0); Hematocrit 35.8 % (40.1-51.0); Hemoglobin 12.1 g/dL (13.7-17.5); Lymphocytes # (Auto) 2.45 K/mcL (1.50-4.80); Lymphocytes % (Auto) 19.6 % (15.5-49.0); Mean Cell Volume 96.5 fL (80.0-100.0); Mean Corpuscular HGB Conc 33.8 g/dL (31.0-36.0); Mean Platelet Volume 9.6 fL (8.8-12.5); Monocytes # (Auto) 0.69 K/mcL (0.10-0.90); Monocytes % (Auto) 5.5 % (1.0-12.0); Neutrophils % (Auto) 70.2 % (38.0-78.0); Platelet Count 410 K/mcL (140-440); RBC 3.71 M/mcL (4.63-6.08); Red Cell Distribution Width 13.4 % (11.5-14.5); WBC 12.5 K/mcL (4.5-11.0)
[2022-07-03 08:14] LABS: ALT/SGPT 30 U/L (<40); AST/SGOT 19 U/L (<40); Albumin 2.3 gm/dL (3.2-5.2); Albumin/Globulin Ratio 0.5 (1.0-2.3); Alkaline Phosphatase 180 U/L (39-117); Bilirubin,Total 0.7 mg/dL (0.1-1.0); Blood Urea Nitrogen 6 mg/dL (8-23); Calcium 7.6 mg/dL (8.6-10.4); Carbon Dioxide 27 mmol/L (22-30); Chloride 99 mmol/L (96-108); Globulin 4.3 gm/dL (2.2-3.7); Glomerular Filtration Rate 95; Glucose 104 mg/dL (70-105)
[2022-07-03] MEDS: morphine 2 MG/ML VIAL IV PRN ×2 (08:39→13:21)
--- NOTE | 2022-07-03 10:13 | Internal Med Progress Note ---
SUBJECTIVE Subjective Patient information: Note initiated : 07/03/22 at 10:08 am Service Date, if different from initiated Date: [] Patient: Jaxon Gross 62 y/o M admitted on 06/25/22 for leg infection. Chief Complaint: [] Principal diagnosis: Sepsis Interval history: 06/29: Fever Tmax 38.3 overnight. Repeat blood culture no growth to date. IV pyelogram no acute findings. Blood pressure been okay overnight. Patient is complain of mild burning pain of the right lower extremity at rest which became severe when he tried to move his leg or when it is being touched. He also is complaining of subjective fever and shaking chills. Downgraded patient to [facility] with telemetry. Continue to work with infectious disease specialist. Continue Rocephin and IV clindamycin. Add Eliquis as anticoagulations for thrombophlebitis. Continue physical therapy evaluation and treatment. 06/30: Low grade fever Tmax 37.8 overnight. Repeat blood culture no growth to date. ID Dr. Ryan added Zyvox in addition to Rocephin and Clindamycin. WBC down from 21.7 to 19.5. H/H stable. No reported black stool or bloody stool. Patient is coming of chills overnight. Patient is coming of burning sensation of the right lower extremities. Stay in inpatient med surg telemetry. Continue to work with infectious disease specialist Dr. Ryan, recs. appreciated. Continue Zyvox, Rocephin and IV clindamycin. Continue Eliquis as anticoagulations for thrombophlebitis. Continue physical therapy evaluation and treatment. 07/01: Low grade fever 37.3 overnight. Repeat blood culture no growth to date. WBC 21.1 this morning. Patient is c/o pain of right legs. Denies fever, chills, or sweating. Stay in inpatient med surg telemetry. Continue to work with infectious disease specialist Dr. Ryan, recs. appreciated. Consult Dr. Becerra for wound care, recs. appreciated. Continue Zyvox, Rocephin and IV clindamycin. Continue Eliquis as anticoagulations for thrombophlebitis. Continue physical therapy evaluation and treatment. 07/02: Afebrile overnight. Repeat blood culture no growth to date. WBC 14.4 this morning. s/p wound I&D by Dr. Becerra with wound culture on 07/01. Patient is c/o back rash with itchiness. Patient is c/o pain of right legs. Denies fever, chills, or sweating. Stay in inpatient med surg telemetry. Continue to work with infectious disease specialist, layne. jia. Consider de-escalate antibiotics with clinical improvement. Watch for diarrhea while patient is on Clindamycin. Continue to work with Dr. Becerra regarding wound care. Continue Eliquis as anticoagulations for thrombophlebitis. Benadryl PRN itchiness. Continue physical therapy evaluation and treatment. 07/03: Fever Tmax 38.0 overnight. WBC 12.5. Repeat blood culture and wound culture no growth today. Patient is complaining of 5 out of 10 burning pain off right foot and right lower leg. He denies any fever, chills, or diaphoresis. Infectious disease specialist recommended to discontinued Rocephin and clindamycin while continuing Zyvox. Continue wound care management with Dr. Becerra team. Continue to monitor repeat blood culture and wound culture result for antibiotics adjustment. Continue Eliquis as anticoagulations for thrombophlebitis. Continue physical therapy evaluation and treatment. Constitutional Vitals: Vital Signs Temp Pulse Resp BP Pulse Ox O2 Del Method O2 Flow Rate 37.0 C 80 20 142/70 97 0 07/03/22 07:33 07/03/22 07:33 07/03/22 07:33 07/03/22 07:33 07/03/22 07:33 07/03/22 07:33 06/30/22 00:17 Period Temp Pulse Resp BP Sys/Nj Pulse Ox O2 Del Method O2 Flow Rate Last 24 Hr 36.2 C-38.0 C 80-92 18-24 137-153/66-89 93-97 Room Air-Room Air Intake and Output 07/02/22 07/03/22 07/03/22 19:59 03:59 11:59 Intake Total 690 200 520 Output Total 2375 1350 Balance -1685 -1150 520 Weight 87.453 kg Intake & Output: Intake & Output 07/02/22 07/03/22 07/03/22 19:59 03:59 11:59 Intake Total 690 200 520 Output Total 2375 1350 Balance -1685 -1150 520 Weight 87.453 kg Intake: Nourishment/Supplement quantity 0 (ml) IV 50 50 100 Rocephin 2 gm In Dextrose 5% in 50 Water 50 ml @ 100 mls/hr IV Q24H [facility] Rx#:[id number] Oral 640 150 420 Output: Urine Catheter Amount 1068 4619 Other: Meal Dinner Breakfast Percent of Meal Consumed 25% 75% Feeding Ability Independent Independent Nourishment/Supplement name Ensure Clear Carlson Urine Appearance Clear Uretheral (Forrester) Clear Clear Urine Color Yellow Uretheral (Forrester) Yellow Dark Yellow Stool Size Small # Bowel Movements 1 Head Head exam: Present atraumatic and normal inspection Eye Eye exam: Present normal appearance ENT ENT exam: Present mucous membranes moist, normal exam and normal external ear exam Neck Neck exam: Present normal inspection Respiratory Respiratory exam: Present normal respiratory exam Cardiovascular Cardiovascular exam: Present normal rate and rhythm GI/Abdominal GI/Abdominal exam: Present normal bowel sounds Additional comments: Forrester catheter in place Back Exam Back exam: Present normal inspection Neurological Exam Neurological exam: Present alert and oriented X3 Skin Skin exam: Present erythema, rash and warm; Absent intact Additional comments: erythematic rash right lower leg Ulcer right inner ankle edge OBJ DATA Labs CBC & Chem 7: 07/03/22 05:32 07/03/22 05:32 Labs: Abnormal Lab Results 07/03/22 07/03/22 07/02/22 05:32 05:32 05:40 WBC 12.5 H RBC 3.71 L Hgb 12.1 L Hct 35.8 L Immature Gran % (Auto) 1.7 H Bartholomew # (Auto) Immature Gran # 0.21 H Absolute Neutrophils 8.79 H Sodium Anion Gap 5.0 L BUN 6 L 7 L Glucose Calcium 7.6 L 7.3 L AST ALT Alkaline Phosphatase 180 H 203 H Albumin 2.3 L 2.2 L Globulin 4.3 H 4.0 H Albumin/Globulin Ratio 0.5 L 0.6 L 07/02/22 07/01/22 07/01/22 05:40 05:27 05:27 WBC 14.4 H 21.1 H RBC 3.59 L 3.61 L Hgb 12.0 L 12.1 L Hct 34.6 L 35.1 L Immature Gran % (Auto) 4.5 H 4.8 H Bartholomew # (Auto) 1.07 H Immature Gran # 0.65 H 1.01 H Absolute Neutrophils 9.72 H 15.24 H Sodium 130 L Anion Gap BUN Glucose 107 H Calcium 7.4 L AST 49 H ALT 57 H Alkaline Phosphatase 244 H Albumin 2.0 L Globulin 4.1 H Albumin/Globulin Ratio 0.5 L Meds: Medications Acetaminophen (Acetaminophen 325 Mg Tablet) 650 mg PO Q6HP PRN; Protocol PRN Reason: Per Pain Protocol/Fever > 101 Last Admin: 06/30/22 17:26 Dose: 650 mg Apixaban (Apixaban 5 Mg Tablet) 5 mg PO BID [facility] Last Admin: 07/03/22 07:27 Dose: 5 mg Belladonna/Phenobarbital (Phenobarb/Hyoscy/Atropine/Scop 1 Dose Bottle) 1 dose PO Q4HP PRN PRN Reason: Dyspepsia Last Admin: 06/27/22 17:16 Dose: 1 dose Digoxin (Digoxin 125 Mcg Tablet) 125 mcg PO DAILY@1400 [facility] Last Admin: 07/02/22 13:40 Dose: 125 mcg Diphenhydramine HCl (Diphenhydramine 25 Mg Capsule) 50 mg PO Q6HP PRN PRN Reason: Allergic Symptoms Last Admin: 07/03/22 07:27 Dose: 50 mg Docusate Sodium (Docusate Sodium 100 Mg Capsule) 100 mg PO BID [facility] Last Admin: 07/03/22 07:26 Dose: Not Given CLINDAMYCIN IN 0.9 % SOD CHLOR (Clindamycin 600 Mg/50 Ml-Ns) 600 mg in 50 mls @ 100 mls/hr IV Q8H [facility] Last Infusion: 07/03/22 05:58 Dose: Infused Ceftriaxone Sodium 2 gm/ (Dextrose) 50 mls @ 100 mls/hr IV Q24H [facility] Last Infusion: 07/03/22 05:26 Dose: Infused Ibuprofen (Ibuprofen 800 Mg Tablet) 800 mg PO Q8HP PRN PRN Reason: Pain Last Admin: 07/02/22 21:26 Dose: 800 mg Lactulose (Lactulose 20 Gm/30 Ml Oral.Gilda) 10 gm PO DAILYP PRN PRN Reason: Constipation Linezolid (Linezolid 600 Mg Tablet) 600 mg PO Q12 [facility]; Protocol Last Admin: 07/03/22 07:27 Dose: 600 mg Melatonin (Melatonin 3 Mg Tablet) 9 mg PO HSP PRN PRN Reason: Insomnia Last Admin: 06/30/22 20:25 Dose: 9 mg Metoprolol Succinate (Metoprolol Succinate 25 Mg Tab.Xl.24h) 12.5 mg PO BID [facility] Last Admin: 07/03/22 07:27 Dose: 12.5 mg Morphine Sulfate (Morphine 2 Mg/Ml Vial) 2 - 4 mg IV Q4HP PRN; Protocol PRN Reason: Per Pain Protocol Last Admin: 07/03/22 08:39 Dose: 4 mg Ondansetron HCl (Ondansetron 4 Mg/2 Ml Vial) 4 mg IV Q4HP PRN; Protocol PRN Reason: Nausea And Vomiting Oxycodone/Acetaminophen (Oxycodone/Apap 5/325mg Tablet) 1 tab PO Q4HP PRN; Protocol PRN Reason: Per Pain Protocol Last Admin: 07/03/22 05:07 Dose: 1 tab Senna (Sennosides 1 Tablet) 2 tab PO HSP PRN PRN Reason: Constipation Sodium Chloride (0.9 % Sodium Chloride 10 Ml Syringe) 10 ml IV Q8 [facility] Last Admin: 07/03/22 05:28 Dose: 10 ml A/P Assessment and plan (1) Bacteremia due to Streptococcus: Status: Acute (2) Cellulitis of leg, right: Status: Acute (3) Sepsis: Status: Acute Qualifiers: Sepsis acute organ dysfunction status: without acute organ dysfunction Sepsis type: sepsis due to unspecified organism Qualified Code(s): A41.9 - Sepsis, unspecified organism (4) Atrial fibrillation: Status: Acute (5) Anemia, normocytic normochromic: Status: Acute (6) Thrombophlebitis of right lower extremity: Status: Acute (7) Gross hematuria: Status: Acute Narrative A/P Narrative: Assessment and Plans: 1. Right leg cellulitis, right distal greater saphenous vein thrombophlebitis, with associated group A strep bacteremia, clinical sepsis: Stays in med surg Consulting ID specialist, recs. appreciated Consulting general surgeon Dr. Robledo, recs. appreciated Consulting Dr. Becerra for wound care, recs. appreciated Repeat blood culture no growth to date Wound culture no growth to date TTE no evidence of endocarditis Eliquis for right distal greater saphenous vein thrombophlebitis d/c Rocephin d/c Clindamycin IV Continue Zyvox Consider de-escalate antibiotics therapy with clinical improvement Tylenol Percocet Ibuprofen Morphine Benadryl cbc w/ auto diff in the morning to trend WBC Physical therapy evaluation and treatment 2. Atrial fibrillation: Converted back to normal sinus rhythm Toprol XL Digoxin Eliquis 3. Acute kidney injury: Kidney functions back to baseline 4. Gross hematuria: Urology consulted, outpatient follow up with potential cystoscopy IV pyelogram no acute intraabdominal/pelvic pathologies d/c Forrester catheter prior to hospital discharge 5. Anemia, normocytic normochromic: cbc w/ auto diff in the morning to trend H/H GI ppx: Not currently indicated DVT ppx: Eliquis Code status: Full Prognosis: Stable Disposition: inpatient med surg; PT Plan of Treatment: Plan: Continue ongoing wound care per orders. Time Spent With Patient Time: Total time spent is greater than 50% in coordination of care (as documented) at patient's floor/unit and/or counseling patient: Subsequent: Total time with patient: 35 - 49 minutes
--- NOTE | 2022-07-03 12:58 | Internal Med Progress Note ---
SUBJECTIVE Subjective Patient information: Note initiated : 07/03/22 at 12:52 pm Service Date, if different from initiated Date: [] Patient: Jaxon Gross 62 y/o M admitted on 06/25/22 for leg infection. Chief Complaint: [] Principal diagnosis: Sepsis Interval history: 06/29: Fever Tmax 38.3 overnight. Repeat blood culture no growth to date. IV pyelogram no acute findings. Blood pressure been okay overnight. Patient is complain of mild burning pain of the right lower extremity at rest which became severe when he tried to move his leg or when it is being touched. He also is complaining of subjective fever and shaking chills. Downgraded patient to [facility] with telemetry. Continue to work with infectious disease specialist. Continue Rocephin and IV clindamycin. Add Eliquis as anticoagulations for thrombophlebitis. Continue physical therapy evaluation and treatment. 06/30: Low grade fever Tmax 37.8 overnight. Repeat blood culture no growth to date. ID Dr. Ryan added Zyvox in addition to Rocephin and Clindamycin. WBC down from 21.7 to 19.5. H/H stable. No reported black stool or bloody stool. Patient is coming of chills overnight. Patient is coming of burning sensation of the right lower extremities. Stay in inpatient med surg telemetry. Continue to work with infectious disease specialist Dr. Ryan, recs. appreciated. Continue Zyvox, Rocephin and IV clindamycin. Continue Eliquis as anticoagulations for thrombophlebitis. Continue physical therapy evaluation and treatment. 07/01: Low grade fever 37.3 overnight. Repeat blood culture no growth to date. WBC 21.1 this morning. Patient is c/o pain of right legs. Denies fever, chills, or sweating. Stay in inpatient med surg telemetry. Continue to work with infectious disease specialist Dr. Ryan, recs. appreciated. Consult Dr. Becerra for wound care, recs. appreciated. Continue Zyvox, Rocephin and IV clindamycin. Continue Eliquis as anticoagulations for thrombophlebitis. Continue physical therapy evaluation and treatment. 07/02: Afebrile overnight. Repeat blood culture no growth to date. WBC 14.4 this morning. s/p wound I&D by Dr. Becerra with wound culture on 07/01. Patient is c/o back rash with itchiness. Patient is c/o pain of right legs. Denies fever, chills, or sweating. Stay in inpatient med surg telemetry. Continue to work with infectious disease specialist, layne. jia. Consider de-escalate antibiotics with clinical improvement. Watch for diarrhea while patient is on Clindamycin. Continue to work with Dr. Becerra regarding wound care. Continue Eliquis as anticoagulations for thrombophlebitis. Benadryl PRN itchiness. Continue physical therapy evaluation and treatment. 07/03: Fever Tmax 38.0 overnight. WBC 12.5. Repeat blood culture and wound culture no growth today. Patient is complaining of 5 out of 10 burning pain off right foot and right lower leg. He denies any fever, chills, or diaphoresis. Infectious disease specialist recommended to discontinued Rocephin and clindamycin while continuing Zyvox. Continue wound care management with Dr. Becerra team. Continue to monitor repeat blood culture and wound culture result for antibiotics adjustment. Continue Eliquis as anticoagulations for thrombophlebitis. Continue physical therapy evaluation and treatment. 07/04 Constitutional Vitals: Vital Signs Temp Pulse Resp BP Pulse Ox O2 Del Method O2 Flow Rate 99.1 F H 88 20 143/69 95 0 07/03/22 12:00 07/03/22 12:00 07/03/22 12:00 07/03/22 12:00 07/03/22 12:00 07/03/22 12:00 06/30/22 00:17 Period Temp Pulse Resp BP Sys/Nj Pulse Ox O2 Del Method O2 Flow Rate Last 24 Hr 97.2 F-100.4 F 80-92 18-24 142-153/66-72 93-97 Room Air-Room Air Intake and Output 07/03/22 07/03/22 07/03/22 03:59 11:59 19:59 Intake Total 200 520 Output Total 1350 Balance -1150 520 Intake & Output: Intake & Output 07/03/22 07/03/22 07/03/22 03:59 11:59 19:59 Intake Total 200 520 Output Total 1350 Balance -1150 520 Intake: IV 50 100 Rocephin 2 gm In Dextrose 5% in 50 Water 50 ml @ 100 mls/hr IV Q24H [facility] Rx#:[id number] Oral 150 420 Output: Urine Catheter Amount 1350 Other: Meal Breakfast Percent of Meal Consumed 75% Feeding Ability Independent Urine Appearance Clear Uretheral (Forrester) Clear Clear Urine Color Yellow Uretheral (Forrester) Yellow Dark Yellow Exam: General: Alert, Awake, No acute Distress Eyes/N/T: EOMI, Head/Neck: neck supple, CV: RRR, No murmurs, Pulm: Clear b/l, no wheezing/rhonchi/rales Abd: soft, nontender, +BS x4 Ext: no clubbing/cyanosis/edema Neuro: Alert, no focal deficits, moves all extremities, Skin: warm/dry, erythematic rash right lower leg, Ulcer right inner ankle edge OBJ DATA Labs CBC & Chem 7: 07/03/22 05:32 07/03/22 05:32 Labs: Abnormal Lab Results 07/03/22 07/03/22 07/02/22 05:32 05:32 05:40 WBC 12.5 H RBC 3.71 L Hgb 12.1 L Hct 35.8 L Immature Gran % (Auto) 1.7 H Piatt # (Auto) Immature Gran # 0.21 H Absolute Neutrophils 8.79 H Sodium Anion Gap 5.0 L BUN 6 L 7 L Glucose Calcium 7.6 L 7.3 L AST ALT Alkaline Phosphatase 180 H 203 H Albumin 2.3 L 2.2 L Globulin 4.3 H 4.0 H Albumin/Globulin Ratio 0.5 L 0.6 L 07/02/22 07/01/22 07/01/22 05:40 05:27 05:27 WBC 14.4 H 21.1 H RBC 3.59 L 3.61 L Hgb 12.0 L 12.1 L Hct 34.6 L 35.1 L Immature Gran % (Auto) 4.5 H 4.8 H Piatt # (Auto) 1.07 H Immature Gran # 0.65 H 1.01 H Absolute Neutrophils 9.72 H 15.24 H Sodium 130 L Anion Gap BUN Glucose 107 H Calcium 7.4 L AST 49 H ALT 57 H Alkaline Phosphatase 244 H Albumin 2.0 L Globulin 4.1 H Albumin/Globulin Ratio 0.5 L Meds: Medications Acetaminophen (Acetaminophen 325 Mg Tablet) 650 mg PO Q6HP PRN; Protocol PRN Reason: Per Pain Protocol/Fever > 101 Last Admin: 06/30/22 17:26 Dose: 650 mg Apixaban (Apixaban 5 Mg Tablet) 5 mg PO BID [facility] Last Admin: 07/03/22 07:27 Dose: 5 mg Belladonna/Phenobarbital (Phenobarb/Hyoscy/Atropine/Scop 1 Dose Bottle) 1 dose PO Q4HP PRN PRN Reason: Dyspepsia Last Admin: 06/27/22 17:16 Dose: 1 dose Digoxin (Digoxin 125 Mcg Tablet) 125 mcg PO DAILY@1400 [facility] Last Admin: 07/02/22 13:40 Dose: 125 mcg Diphenhydramine HCl (Diphenhydramine 25 Mg Capsule) 50 mg PO Q6HP PRN PRN Reason: Allergic Symptoms Last Admin: 07/03/22 07:27 Dose: 50 mg Docusate Sodium (Docusate Sodium 100 Mg Capsule) 100 mg PO BID [facility] Last Admin: 07/03/22 07:26 Dose: Not Given Ibuprofen (Ibuprofen 800 Mg Tablet) 800 mg PO Q8HP PRN PRN Reason: Pain Last Admin: 07/02/22 21:26 Dose: 800 mg Lactulose (Lactulose 20 Gm/30 Ml Oral.Gilda) 10 gm PO DAILYP PRN PRN Reason: Constipation Linezolid (Linezolid 600 Mg Tablet) 600 mg PO Q12 [facility]; Protocol Last Admin: 07/03/22 07:27 Dose: 600 mg Melatonin (Melatonin 3 Mg Tablet) 9 mg PO HSP PRN PRN Reason: Insomnia Last Admin: 06/30/22 20:25 Dose: 9 mg Metoprolol Succinate (Metoprolol Succinate 25 Mg Tab.Xl.24h) 12.5 mg PO BID [facility] Last Admin: 07/03/22 07:27 Dose: 12.5 mg Morphine Sulfate (Morphine 2 Mg/Ml Vial) 2 - 4 mg IV Q4HP PRN; Protocol PRN Reason: Per Pain Protocol Last Admin: 07/03/22 08:39 Dose: 4 mg Ondansetron HCl (Ondansetron 4 Mg/2 Ml Vial) 4 mg IV Q4HP PRN; Protocol PRN Reason: Nausea And Vomiting Oxycodone/Acetaminophen (Oxycodone/Apap 5/325mg Tablet) 1 tab PO Q4HP PRN; Protocol PRN Reason: Per Pain Protocol Last Admin: 07/03/22 05:07 Dose: 1 tab Senna (Sennosides 1 Tablet) 2 tab PO HSP PRN PRN Reason: Constipation Sodium Chloride (0.9 % Sodium Chloride 10 Ml Syringe) 10 ml IV Q8 [facility] Last Admin: 07/03/22 05:28 Dose: 10 ml A/P Narrative A/P Narrative: Assessment and Plans: *Right leg cellulitis, right distal greater saphenous vein thrombophlebitis, with associated group A strep bacteremia, clinical sepsis: -ID specialist, recs. appreciated -general surgeon Dr. Robledo, recs. appreciated -Dr. Becerra for wound care, recs. appreciated -Repeat blood culture no growth to date, Wound culture no growth to date, TTE no evidence of endocarditis -Eliquis for right distal greater saphenous vein thrombophlebitis -d/c Rocephin , d/c Clindamycin IV, > Continue Zyvox -cbc w/ auto diff in the morning to trend WBC -Physical therapy evaluation and treatment *Sepsis: 2/2 above *Atrial fibrillation: Converted back to normal sinus rhythm -Toprol XL , Digoxin , Eliquis *Acute kidney injury: Kidney functions back to baseline *Gross hematuria: -Urology consulted, outpatient follow up with potential cystoscopy -IV pyelogram no acute intraabdominal/pelvic pathologies, d/c Forrester catheter prior to hospital discharge * Anemia, normocytic normochromic: 2/2 above -cbc w/ auto diff in the morning to trend H/H *ppx: Eliquis Code status: Full Plan of Treatment: Plan: Continue ongoing wound care per orders. Time Spent With Patient Time: Total time spent is greater than 50% in coordination of care (as documented) at patient's floor/unit and/or counseling patient:
[2022-07-03] MEDS: IBUPROFEN 800 MG TABLET PO PRN (13:22)
[2022-07-03] MEDS: DIGOXIN 125 MCG TABLET PO SCH (13:22)
--- NOTE | 2022-07-03 15:21 | Internal Med Progress Note ---
SUBJECTIVE Subjective Patient information: Note initiated : 07/03/22 at 3:19 pm Service Date, if different from initiated Date: [] Patient: Jaxon Gross 62 y/o M admitted on 06/25/22 for leg infection. Chief Complaint: f/u skin rash Principal diagnosis: Group A streptococcus septicemia secondary to RLE cellulitis Pertinent ROS: refers itchiness has stopped, was able to ambulate today Constitutional Vitals: Vital Signs Temp Pulse Resp BP Pulse Ox O2 Del Method O2 Flow Rate 99.1 F H 88 20 143/69 95 0 07/03/22 12:00 07/03/22 12:00 07/03/22 12:00 07/03/22 12:00 07/03/22 12:00 07/03/22 12:00 06/30/22 00:17 Period Temp Pulse Resp BP Sys/Nj Pulse Ox O2 Del Method O2 Flow Rate Last 24 Hr 97.2 F-100.4 F 80-92 18-24 142-153/66-72 93-97 Room Air-Room Air Intake and Output 07/03/22 07/03/22 07/03/22 03:59 11:59 19:59 Intake Total 200 520 Output Total 1350 Balance -1150 520 Intake & Output: Intake & Output 07/03/22 07/03/22 07/03/22 03:59 11:59 19:59 Intake Total 200 520 Output Total 1350 Balance -1150 520 Intake: IV 50 100 Rocephin 2 gm In Dextrose 5% in 50 Water 50 ml @ 100 mls/hr IV Q24H [facility] Rx#:[id number] Oral 150 420 Output: Urine Catheter Amount 1350 Other: Meal Breakfast Percent of Meal Consumed 75% Feeding Ability Independent Urine Appearance Clear Uretheral (Forrester) Clear Clear Urine Color Yellow Uretheral (Forrester) Yellow Dark Yellow General appearance: cooperative and no acute distress Head Head exam: Present normocephalic Eye Eye exam: Present EOMI and PERRL ENT ENT exam: Present mucous membranes moist Neck Neck exam: Present full ROM Respiratory Respiratory exam: Present normal respiratory exam Expanded Lower Extremity Exam Lower leg exam: Present erythema and swelling Leg image: 1. Decreasing erythema and edema in RLE around the mid vazquez Expanded Skin Exam Body image: 1. Improving erythema OBJ DATA Labs CBC & Chem 7: 07/03/22 05:32 07/03/22 05:32 Labs: Abnormal Lab Results 07/03/22 07/03/22 07/02/22 05:32 05:32 05:40 WBC 12.5 H RBC 3.71 L Hgb 12.1 L Hct 35.8 L Immature Gran % (Auto) 1.7 H Stutsman # (Auto) Immature Gran # 0.21 H Absolute Neutrophils 8.79 H Sodium Anion Gap 5.0 L BUN 6 L 7 L Glucose Calcium 7.6 L 7.3 L AST ALT Alkaline Phosphatase 180 H 203 H Albumin 2.3 L 2.2 L Globulin 4.3 H 4.0 H Albumin/Globulin Ratio 0.5 L 0.6 L 07/02/22 07/01/22 07/01/22 05:40 05:27 05:27 WBC 14.4 H 21.1 H RBC 3.59 L 3.61 L Hgb 12.0 L 12.1 L Hct 34.6 L 35.1 L Immature Gran % (Auto) 4.5 H 4.8 H Stutsman # (Auto) 1.07 H Immature Gran # 0.65 H 1.01 H Absolute Neutrophils 9.72 H 15.24 H Sodium 130 L Anion Gap BUN Glucose 107 H Calcium 7.4 L AST 49 H ALT 57 H Alkaline Phosphatase 244 H Albumin 2.0 L Globulin 4.1 H Albumin/Globulin Ratio 0.5 L Meds: Medications Acetaminophen (Acetaminophen 325 Mg Tablet) 650 mg PO Q6HP PRN; Protocol PRN Reason: Per Pain Protocol/Fever > 101 Last Admin: 06/30/22 17:26 Dose: 650 mg Apixaban (Apixaban 5 Mg Tablet) 5 mg PO BID [facility] Last Admin: 07/03/22 07:27 Dose: 5 mg Belladonna/Phenobarbital (Phenobarb/Hyoscy/Atropine/Scop 1 Dose Bottle) 1 dose PO Q4HP PRN PRN Reason: Dyspepsia Last Admin: 06/27/22 17:16 Dose: 1 dose Digoxin (Digoxin 125 Mcg Tablet) 125 mcg PO DAILY@1400 [facility] Last Admin: 07/03/22 13:22 Dose: 125 mcg Diphenhydramine HCl (Diphenhydramine 25 Mg Capsule) 50 mg PO Q6HP PRN PRN Reason: Allergic Symptoms Last Admin: 07/03/22 07:27 Dose: 50 mg Docusate Sodium (Docusate Sodium 100 Mg Capsule) 100 mg PO BID [facility] Last Admin: 07/03/22 07:26 Dose: Not Given Ibuprofen (Ibuprofen 800 Mg Tablet) 800 mg PO Q8HP PRN PRN Reason: Pain Last Admin: 07/03/22 13:22 Dose: 800 mg Lactulose (Lactulose 20 Gm/30 Ml Oral.Gilda) 10 gm PO DAILYP PRN PRN Reason: Constipation Linezolid (Linezolid 600 Mg Tablet) 600 mg PO Q12 [facility]; Protocol Last Admin: 07/03/22 07:27 Dose: 600 mg Melatonin (Melatonin 3 Mg Tablet) 9 mg PO HSP PRN PRN Reason: Insomnia Last Admin: 06/30/22 20:25 Dose: 9 mg Metoprolol Succinate (Metoprolol Succinate 25 Mg Tab.Xl.24h) 12.5 mg PO BID [facility] Last Admin: 07/03/22 07:27 Dose: 12.5 mg Morphine Sulfate (Morphine 2 Mg/Ml Vial) 2 - 4 mg IV Q4HP PRN; Protocol PRN Reason: Per Pain Protocol Last Admin: 07/03/22 13:21 Dose: 2 mg Ondansetron HCl (Ondansetron 4 Mg/2 Ml Vial) 4 mg IV Q4HP PRN; Protocol PRN Reason: Nausea And Vomiting Oxycodone/Acetaminophen (Oxycodone/Apap 5/325mg Tablet) 1 tab PO Q4HP PRN; Protocol PRN Reason: Per Pain Protocol Last Admin: 07/03/22 05:07 Dose: 1 tab Senna (Sennosides 1 Tablet) 2 tab PO HSP PRN PRN Reason: Constipation Sodium Chloride (0.9 % Sodium Chloride 10 Ml Syringe) 10 ml IV Q8 [facility] Last Admin: 07/03/22 13:29 Dose: 10 ml A/P Assessment and plan (1) Bacteremia due to Streptococcus: Assessment and plan: 62y/o pleasant male presented to emergency room on 06/25/22 with 5 day history of right lower extremity swelling, pain. Denies previous trauma to his leg. Noted some blister in his right medial leg with associated erythema and pain above the ankle, fever 1 week prior.Treated for shingles by PCP but came to ED after presenting with fever, tachycardia and hypotension. Creatinine was 1.8 (downtrended to 0.8), leukocytosis has now started to downtrend (21k > 14k > 12k).Started on Zosyn and clindamycin. Blood culture growing Group A Streptococcus pyogenes. Seen by ID, switched to Penicillin + Clindamycin. Penicillin was not available, so pt is on Ceftriaxone instead. CT RLE+ moderate cellulitis, no myositis. Added Zyvox to current tx. Pt noted yesterday with itchy rash in his upper back, referring itchiness in the back a couple of days prior. Recommended to discontinue Ceftriaxone and Clindamycin (concern could be cephalosporin allergy although it was localized to the back). Pt today refers that itchiness has stopped. Status: Acute (2) Rash and nonspecific skin eruption: Plan: - complete remaining course of Zyvox 600mg PO q12hrs for total 14 days starting from negative blood cultures on 06/26/22 - recommended patient to follow up outpatient with roll forming machine set up mechanic to test for drug allergies - follow up with wound care - will signoff, please reconsult as needed Status: Acute (3) Leukocytosis (leucocytosis): Status: Acute Narrative Plan of Treatment: Plan: Continue ongoing wound care per orders. Time Spent With Patient Time: Total time spent is greater than 50% in coordination of care (as documented) at patient's floor/unit and/or counseling patient: Subsequent: Total time with patient: Less than 25 minutes Total Critical Care Time: 20 (mins)
[2022-07-04] MEDS: oxyCODONE/APAP 5/325MG TABLET PO PRN ×4 (02:12→21:21)
[2022-07-04] MEDS: 0.9 % SODIUM CHLORIDE 10 ML SYRINGE IV SCH ×3 (05:43→20:24)
[2022-07-04 06:34] LABS: Basophils # (Auto) 0.08 K/mcL (0.00-0.30); Basophils % (Auto) 0.5 % (0.0-2.0); Eosinophils # (Auto) 0.46 K/mcL (0.00-0.70); Hematocrit 34.2 % (40.1-51.0); Hemoglobin 11.6 g/dL (13.7-17.5); Lymphocytes # (Auto) 2.61 K/mcL (1.50-4.80); Mean Corpuscular HGB Conc 33.9 g/dL (31.0-36.0); Mean Platelet Volume 9.5 fL (8.8-12.5); Monocytes # (Auto) 0.82 K/mcL (0.10-0.90); Monocytes % (Auto) 5.4 % (1.0-12.0); Neutrophils % (Auto) 73.3 % (38.0-78.0); Platelet Count 492 K/mcL (140-440); RBC 3.49 M/mcL (4.63-6.08); Red Cell Distribution Width 13.5 % (11.5-14.5); WBC 15.3 K/mcL (4.5-11.0)
[2022-07-04] MEDS: morphine 2 MG/ML VIAL IV PRN ×3 (07:00→20:18)
[2022-07-04 07:07] LABS: ALT/SGPT 22 U/L (<40); AST/SGOT 18 U/L (<40); Albumin 2.4 gm/dL (3.2-5.2); Albumin/Globulin Ratio 0.6 (1.0-2.3); Alkaline Phosphatase 162 U/L (39-117); Bilirubin,Total 0.7 mg/dL (0.1-1.0); Blood Urea Nitrogen 10 mg/dL (8-23); Calcium 7.6 mg/dL (8.6-10.4); Carbon Dioxide 26 mmol/L (22-30); Chloride 103 mmol/L (96-108); Globulin 4.3 gm/dL (2.2-3.7); Glomerular Filtration Rate 91; Glucose 109 mg/dL (70-105)
--- NOTE | 2022-07-04 07:24 | Internal Med Progress Note ---
SUBJECTIVE Subjective Patient information: Note initiated : 07/04/22 at 7:21 am Service Date, if different from initiated Date: [] Patient: Jaxon Gross 62 y/o M admitted on 06/25/22 for leg infection. Chief Complaint: [] Principal diagnosis: Group A streptococcus septicemia secondary to RLE cellulitis Interval history: 06/29: Fever Tmax 38.3 overnight. Repeat blood culture no growth to date. IV pyelogram no acute findings. Blood pressure been okay overnight. Patient is complain of mild burning pain of the right lower extremity at rest which became severe when he tried to move his leg or when it is being touched. He also is complaining of subjective fever and shaking chills. Downgraded patient to [facility] with telemetry. Continue to work with infectious disease specialist. Continue Rocephin and IV clindamycin. Add Eliquis as anticoagulations for thrombophlebitis. Continue physical therapy evaluation and treatment. 06/30: Low grade fever Tmax 37.8 overnight. Repeat blood culture no growth to date. ID Dr. Ryan added Zyvox in addition to Rocephin and Clindamycin. WBC down from 21.7 to 19.5. H/H stable. No reported black stool or bloody stool. Patient is coming of chills overnight. Patient is coming of burning sensation of the right lower extremities. Stay in inpatient med surg telemetry. Continue to work with infectious disease specialist Dr. Ryan, recs. appreciated. Continue Zyvox, Rocephin and IV clindamycin. Continue Eliquis as anticoagulations for thrombophlebitis. Continue physical therapy evaluation and treatment. 07/01: Low grade fever 37.3 overnight. Repeat blood culture no growth to date. WBC 21.1 this morning. Patient is c/o pain of right legs. Denies fever, chills, or sweating. Stay in inpatient med surg telemetry. Continue to work with infectious disease specialist Dr. Ryan, recs. appreciated. Consult Dr. Becerra for wound care, recs. appreciated. Continue Zyvox, Rocephin and IV clindamycin. Continue Eliquis as anticoagulations for thrombophlebitis. Continue physical therapy evaluation and treatment. 07/02: Afebrile overnight. Repeat blood culture no growth to date. WBC 14.4 this morning. s/p wound I&D by Dr. Becerra with wound culture on 07/01. Patient is c/o back rash with itchiness. Patient is c/o pain of right legs. Denies fever, chills, or sweating. Stay in inpatient med surg telemetry. Continue to work with infectious disease specialist, layne. appreciated. Consider de-escalate antibiotics with clinical improvement. Watch for diarrhea while patient is on Clindamycin. Continue to work with Dr. Becerra regarding wound care. Continue Eliquis as anticoagulations for thrombophlebitis. Benadryl PRN itchiness. Continue physical therapy evaluation and treatment. 07/03: Fever Tmax 38.0 overnight. WBC 12.5. Repeat blood culture and wound culture no growth today. Patient is complaining of 5 out of 10 burning pain off right foot and right lower leg. He denies any fever, chills, or diaphoresis. Infectious disease specialist recommended to discontinued Rocephin and clindamycin while continuing Zyvox. Continue wound care management with Dr. Becerra team. Continue to monitor repeat blood culture and wound culture result for antibiotics adjustment. Continue Eliquis as anticoagulations for thrombophlebitis. Continue physical therapy evaluation and treatment. 07/04 Patient states poor sleep due to leg pain. Patient weak. Patient does state decreased swelling and redness of the leg. Leukocytosis 15 today, no bandemia. Afebrile since the . He has are showing improvement from initial admission. Review of Systems: denies headache/fever/chills/nausea/vomiting/chest or abdominal pain/cough/dyspnea/diarrhea. Otherwise see above. Constitutional Vitals: Vital Signs Temp Pulse Resp BP Pulse Ox O2 Del Method O2 Flow Rate 99.5 F H 86 16 133/68 95 0 07/04/22 03:35 07/04/22 03:35 07/04/22 03:35 07/04/22 03:35 07/04/22 03:35 07/04/22 03:35 07/03/22 16:00 Period Temp Pulse Resp BP Sys/Nj Pulse Ox O2 Del Method O2 Flow Rate Last 24 Hr 97.5 F-99.7 F 80-90 16-20 122-143/61-70 95-97 Room Air-Room Air 0 Intake and Output 07/03/22 07/04/22 07/04/22 19:59 03:59 11:59 Intake Total 480 600 Output Total 1000 1125 Balance -520 -525 Weight 84.776 kg 82.1 kg Intake & Output: Intake & Output 07/03/22 07/04/22 07/04/22 19:59 03:59 11:59 Intake Total 480 600 Output Total 1000 1125 Balance -520 -525 Weight 84.776 kg 82.1 kg Intake: Oral 480 600 Output: Urine Catheter Amount 1000 1125 Other: Meal Dinner Percent of Meal Consumed 100% Feeding Ability Assist with Tray Set Up Urine Appearance Clear Clear Uretheral (Forrester) Clear Urine Color Yellow Yellow Uretheral (Forrester) Dark Yellow Urine Odor Normal Stool Size Moderate Stool Color Brown Black Stool Consistency Liquid # Bowel Movements 1 Exam: General: Alert, Awake, No acute Distress Eyes/N/T: EOMI, Head/Neck: neck supple, CV: regular, No murmurs, Pulm: Clear b/l, no wheezing/rhonchi/rales Abd: soft, nontender, +BS x4 Ext: no clubbing/cyanosis/edema Neuro: Alert, no focal deficits, moves all extremities, Skin: warm/dry, erythematic rash right lower leg, Ulcer right inner ankle edge OBJ DATA Labs CBC & Chem 7: 07/04/22 05:49 07/04/22 05:49 Labs: Abnormal Lab Results 07/04/22 07/04/22 07/03/22 05:49 05:49 05:32 WBC 15.3 H RBC 3.49 L Hgb 11.6 L Hct 34.2 L Plt Count 492 H Immature Gran % (Auto) 0.8 H Immature Gran # 0.13 H Absolute Neutrophils 11.21 H Sodium Anion Gap 6.0 L BUN 6 L Glucose 109 H Calcium 7.6 L 7.6 L AST ALT Alkaline Phosphatase 162 H 180 H Albumin 2.4 L 2.3 L Globulin 4.3 H 4.3 H Albumin/Globulin Ratio 0.6 L 0.5 L 07/03/22 07/02/22 07/02/22 05:32 05:40 05:40 WBC 12.5 H 14.4 H RBC 3.71 L 3.59 L Hgb 12.1 L 12.0 L Hct 35.8 L 34.6 L Plt Count Immature Gran % (Auto) 1.7 H 4.5 H Immature Gran # 0.21 H 0.65 H Absolute Neutrophils 8.79 H 9.72 H Sodium Anion Gap 5.0 L BUN 7 L Glucose Calcium 7.3 L AST ALT Alkaline Phosphatase 203 H Albumin 2.2 L Globulin 4.0 H Albumin/Globulin Ratio 0.6 L 07/01/22 05:27 WBC RBC Hgb Hct Plt Count Immature Gran % (Auto) Immature Gran # Absolute Neutrophils Sodium 130 L Anion Gap BUN Glucose 107 H Calcium 7.4 L AST 49 H ALT 57 H Alkaline Phosphatase 244 H Albumin 2.0 L Globulin 4.1 H Albumin/Globulin Ratio 0.5 L Meds: Medications Acetaminophen (Acetaminophen 325 Mg Tablet) 650 mg PO Q6HP PRN; Protocol PRN Reason: Per Pain Protocol/Fever > 101 Last Admin: 06/30/22 17:26 Dose: 650 mg Apixaban (Apixaban 5 Mg Tablet) 5 mg PO BID [facility] Last Admin: 07/03/22 20:50 Dose: 5 mg Belladonna/Phenobarbital (Phenobarb/Hyoscy/Atropine/Scop 1 Dose Bottle) 1 dose PO Q4HP PRN PRN Reason: Dyspepsia Last Admin: 06/27/22 17:16 Dose: 1 dose Digoxin (Digoxin 125 Mcg Tablet) 125 mcg PO DAILY@1400 [facility] Last Admin: 07/03/22 13:22 Dose: 125 mcg Diphenhydramine HCl (Diphenhydramine 25 Mg Capsule) 50 mg PO Q6HP PRN PRN Reason: Allergic Symptoms Last Admin: 07/03/22 21:25 Dose: 50 mg Docusate Sodium (Docusate Sodium 100 Mg Capsule) 100 mg PO BID [facility] Last Admin: 07/03/22 20:50 Dose: Not Given Ibuprofen (Ibuprofen 800 Mg Tablet) 800 mg PO Q8HP PRN PRN Reason: Pain Last Admin: 07/03/22 13:22 Dose: 800 mg Lactulose (Lactulose 20 Gm/30 Ml Oral.Gilda) 10 gm PO DAILYP PRN PRN Reason: Constipation Linezolid (Linezolid 600 Mg Tablet) 600 mg PO Q12 [facility]; Protocol Last Admin: 07/03/22 20:50 Dose: 600 mg Melatonin (Melatonin 3 Mg Tablet) 9 mg PO HSP PRN PRN Reason: Insomnia Last Admin: 06/30/22 20:25 Dose: 9 mg Metoprolol Succinate (Metoprolol Succinate 25 Mg Tab.Xl.24h) 12.5 mg PO BID [facility] Last Admin: 07/03/22 20:50 Dose: 12.5 mg Morphine Sulfate (Morphine 2 Mg/Ml Vial) 2 - 4 mg IV Q4HP PRN; Protocol PRN Reason: Per Pain Protocol Last Admin: 07/04/22 07:00 Dose: 2 mg Ondansetron HCl (Ondansetron 4 Mg/2 Ml Vial) 4 mg IV Q4HP PRN; Protocol PRN Reason: Nausea And Vomiting Oxycodone/Acetaminophen (Oxycodone/Apap 5/325mg Tablet) 1 tab PO Q4HP PRN; Protocol PRN Reason: Per Pain Protocol Last Admin: 07/04/22 02:12 Dose: 1 tab Senna (Sennosides 1 Tablet) 2 tab PO HSP PRN PRN Reason: Constipation Sodium Chloride (0.9 % Sodium Chloride 10 Ml Syringe) 10 ml IV Q8 [facility] Last Admin: 07/04/22 05:43 Dose: Not Given A/P Narrative A/P Narrative: Assessment and Plans: *Right leg cellulitis, right distal greater saphenous vein thrombophlebitis, with associated group A strep bacteremia, clinical sepsis: -ID specialist > completed 14-day course from admission -general surgeon Dr. Robledo, recs. appreciated -Dr. Becerra for wound care, recs. appreciated -Repeat blood culture no growth to date, Wound culture no growth to date, TTE no evidence of endocarditis -d/c Rocephin , d/c Clindamycin IV, > Continue Zyvox -cbc w/ auto diff in the morning to trend WBC -Physical therapy evaluation and treatment *Sepsis: 2/2 above -now afebrile, leukocytosis *Paroxysmal Atrial fibrillation w/RVR: Converted back to normal sinus rhythm -echo wnl EF -Toprol XL , Digoxin (f/u level) , Eliquis *Acute kidney injury: Kidney functions back to baseline *Gross hematuria: -Urology consulted, outpatient follow up with potential cystoscopy -IV pyelogram no acute intraabdominal/pelvic pathologies, d/c Forrester catheter prior to hospital discharge * Anemia, normocytic normochromic: 2/2 above -cbc w/ auto diff in the morning to trend H/H *ppx: Eliquis Code status: Full Plan of Treatment: Plan: Continue ongoing wound care per orders. Time Spent With Patient Time: Total time spent is greater than 50% in coordination of care (as documented) at patient's floor/unit and/or counseling patient: Subsequent: Total time with patient: 50 - 65 Minutes
[2022-07-04 08:11] LABS: Erythrocyte Sedimentation Rate 81 mm/hr (0-20)
[2022-07-04 08:42] LABS: Band Neutrophils % 2 % (0-10); Eosinophils % (Manual) 1 % (0-7); Lymphocytes % 12 % (15-49); Monocytes % (Manual) 3 % (1-12); Platelet Estimate INCREASED (Normal); RBC Morphology NORMAL (Normal); Segmented Neutrophils % 82 % (38-78); Toxic Granulation 1+ (None Seen)
[2022-07-04] MEDS: DOCUSATE SODIUM 100 MG CAPSULE PO SCH ×2 (09:49→20:25)
[2022-07-04] MEDS: METOPROLOL SUCCINATE 25 MG TAB.XL.24H PO SCH ×2 (09:49→20:19)
[2022-07-04] MEDS: LINEZOLID 600 MG TABLET PO SCH ×2 (09:50→20:19)
[2022-07-04] MEDS: APIXABAN 5 MG TABLET PO SCH ×2 (09:50→20:20)
[2022-07-04 12:53] LABS: Digoxin 0.7 ng/mL
[2022-07-04] MEDS: DIGOXIN 125 MCG TABLET PO SCH (13:03)
--- NOTE | 2022-07-04 13:27 | General Surgery Progress Note ---
SUBJECTIVE Subjective Patient information: Note initiated : 07/04/22 at 1:24 pm Service Date, if different from initiated Date: [] Patient: Jaxon Gross 62 y/o M admitted on 06/25/22 for leg infection. Chief Complaint: [] Principal diagnosis: Group A streptococcus septicemia secondary to RLE cellulitis Additional PMFSH (Level 3 Only): I saw Mr. Gross along with Mello Sanford RN, Inpatient wound care nurse. Noted developments and examined RIGHT lower leg and VLU site. MIST treatment. Constitutional Vitals: Vital Signs Temp Pulse Resp BP Pulse Ox O2 Del Method O2 Flow Rate 99.5 F H 86 16 154/72 96 0 07/04/22 08:00 07/04/22 08:00 07/04/22 08:00 07/04/22 08:00 07/04/22 08:00 07/04/22 08:00 07/03/22 16:00 Period Temp Pulse Resp BP Sys/Nj Pulse Ox O2 Del Method O2 Flow Rate Last 24 Hr 97.5 F-99.7 F 83-90 16-20 122-154/61-72 95-96 Room Air-Room r 0 Intake and Output 07/04/22 07/04/22 07/04/22 03:59 11:59 19:59 Intake Total 600 Output Total 1125 Balance -525 Weight 181 lb Intake & Output: Intake & Output 07/04/22 07/04/22 07/04/22 03:59 11:59 19:59 Intake Total 600 Output Total 1125 Balance -525 Weight 181 lb Intake: Oral 600 Output: Urine Catheter Amount 1125 Other: Urine Appearance Clear Uretheral (Forrester) Clear Clear Urine Color Yellow Uretheral (Forrester) Dark Yellow Dark Yellow Stool Size Moderate Stool Color Brown Black Stool Consistency Liquid # Bowel Movements 1 Exam: AVSS. Clinically looks good and feels better. Clear speech, Using IS. Weight bearing on RIGHT leg. lab results reviewed. Chemistry improving values. WBC around 15. Lymphedema or RIGHT leg persists but improving Lymphorrhea. VLU site improving. NO further debridement at this time. Antibiotic managed by ID (Telemedicine) A/P Narrative A/P Narrative: Assessment: Satisfactory response to local wound care / treatment. Plan of Treatment: Plan: Continue ongoing wound care per orders. If Discharged, please arrange for f/u appointment at wound clinic. Thanks Time Spent With Patient Time: Total time spent is greater than 50% in coordination of care (as documented) at patient's floor/unit and/or counseling patient:
--- NOTE | 2022-07-04 13:34 | Discharge Summary ---
Discharge Provider Provider IMPORTANT FOLLOW-UP INFORMATION FOR PCP: f/u cbc ordered for persistent leukocytosis, lab to go to Dr. Becerra and PCP. Patient information: Note initiated : 07/04/22 at 1:31 pm Service Date, if different from initiated Date: [] Patient: Jaxon Gross 62 y/o M admitted on 06/25/22 for leg infection. Chief Complaint: [] Date of admission: 06/25/22 13:58 Discharge date: 07/05/22 Consults: 06/25/22 Consult to Physician [CONS] Stat Comment: Consulting Provider: Karon Byers Reason For Exam: Physician to Consult 06/27/22 08:08 Consult to Physician [CONS] Routine Comment: Blood in urine Consulting Provider: Monty Cevallos Reason For Exam: Physician to Consult 06/27/22 10:29 Consult to Physician [CONS] Routine Comment: Consulting Provider: Jung BRADFORD Reason For Exam: Physician to Consult 06/28/22 14:14 Consult to Physician [CONS] Routine Comment: Consulting Provider: Scout Robledo Reason For Exam: Physician to Consult 07/01/22 10:25 Consult to Physician [CONS] Routine Comment: Consulting Provider: Chuck Becerra Reason For Exam: Physician to Consult COURSE Hospital Course Hospital course: History of present illness: Mr. Gross is a 62 year old M with no significant past medical history presents to the hospital with 1 week of worsening right lower extremity pain, erythema and swelling. The patient states that he went to urgent care clinic last Friday and was diagnosed with suspected shingles as they may have seen crusting vesicles. He was not prescribed antiviral or antibiotic therapy. The patient states that he continued to experience erythema, swelling and pain which he believed was worsening. The site was near the ankle around the medial calf area. The patient was quite lethargic however was unable to sleep most days due to severe pain. The patient has not been eating or drinking much. He decided to come to the ER for further management and evaluation. On arrival he was hemodynamically tenuous and afebrile. He was found to have a heart rate of 129 and a blood pressure as low as 87/68. In terms of his lab work, his white blood cell count was 22,000, lactic acid was 4.1, and creatinine was 1.8. The hospitalist service was asked admit the patient for further management and evaluation of his sepsis due to right lower extremity cellulitis. 06/27 Overnight, the patient had issues with tachyarrhythmia and was found to have atrial fibrillation with RVR. He was loaded with digoxin, and given several doses of Lopressor 5 mg IV. He was given one-time dose of Toprol-XL 12.5 mg p.o. x1. This morning, he was resting comfortably in bed. He was pleasant, calm and cooperative. He had no active complaints. RN was present at the bedside to discuss plan of care. 06/29: Fever Tmax 38.3 overnight. Repeat blood culture no growth to date. IV pyelogram no acute findings. Blood pressure been okay overnight. Patient is complain of mild burning pain of the right lower extremity at rest which became severe when he tried to move his leg or when it is being touched. He also is complaining of subjective fever and shaking chills. Downgraded patient to [facility] with telemetry. Continue to work with infectious disease specialist. Continue Rocephin and IV clindamycin. Add Eliquis as anticoagulations for thrombophlebitis. Continue physical therapy evaluation and treatment. 06/30: Low grade fever Tmax 37.8 overnight. Repeat blood culture no growth to date. ID Dr. Ryan added Zyvox in addition to Rocephin and Clindamycin. WBC down from 21.7 to 19.5. H/H stable. No reported black stool or bloody stool. Patient is coming of chills overnight. Patient is coming of burning sensation of the right lower extremities. Stay in inpatient med surg telemetry. Continue to work with infectious disease specialist Dr. Ryan, recs. appreciated. Continue Zyvox, Rocephin and IV clindamycin. Continue Eliquis as anticoagulations for thrombophlebitis. Continue physical therapy evaluation and treatment. 07/01: Low grade fever 37.3 overnight. Repeat blood culture no growth to date. WBC 21.1 this morning. Patient is c/o pain of right legs. Denies fever, chills, or sweating. Stay in inpatient med surg telemetry. Continue to work with infectious disease specialist Dr. Ryan, recs. appreciated. Consult Dr. Becerra for wound care, recs. appreciated. Continue Zyvox, Rocephin and IV clindamycin. Continue Eliquis as anticoagulations for thrombophlebitis. Continue physical therapy evaluation and treatment. 07/02: Afebrile overnight. Repeat blood culture no growth to date. WBC 14.4 this morning. s/p wound I&D by Dr. Becerra with wound culture on 07/01. Patient is c/o back rash with itchiness. Patient is c/o pain of right legs. Denies fever, chills, or sweating. Stay in inpatient med surg telemetry. Continue to work with infectious disease specialist, layne. appreciated. Consider de-escalate antibiotics with clinical improvement. Watch for diarrhea while patient is on Clindamycin. Continue to work with Dr. Becerra regarding wound care. Continue Eliquis as anticoagulations for thrombophlebitis. Benadryl PRN itchiness. Continue physical therapy evaluation and treatment. 07/03: Fever Tmax 38.0 overnight. WBC 12.5. Repeat blood culture and wound culture no growth today. Patient is complaining of 5 out of 10 burning pain off right foot and right lower leg. He denies any fever, chills, or diaphoresis. Infectious disease specialist recommended to discontinued Rocephin and clindamycin while continuing Zyvox. Continue wound care management with Dr. Becerra team. Continue to monitor repeat blood culture and wound culture result for antibiotics adjustment. Continue Eliquis as anticoagulations for thrombophlebitis. Continue physical therapy evaluation and treatment. 07/04 Patient states poor sleep due to leg pain. Patient weak. Patient does state decreased swelling and redness of the leg. Leukocytosis 15 today, no bandemia. Afebrile since the . He has are showing improvement from initial admission. 07/05 White blood cell count still elevated fluctuating and no bandemia The patient is afebrile he says he is feeling better. Wound care states the wound is continuing to look better. Assessment and Plans: *Right leg cellulitis, right distal greater saphenous vein thrombophlebitis, with associated group A strep bacteremia, clinical sepsis: -ID specialist > completed 14-day course from admission >Zyvox *Sepsis: 2/2 above -leukocytosis persistent (no basline to compare with), pt nontoxic and states feeling better, no bandemia or fevers. will obtain f/u cbc outpt *Paroxysmal Atrial fibrillation w/RVR: Converted back to normal sinus rhythm -Toprol XL , Digoxin Eliquis -f/u with cardiology *Acute kidney injury: *Gross hematuria: -Urology consulted, outpatient follow up with potential cystoscopy * Anemia, normocytic normochromic: 2/2 above Discharge diagnosis: right leg cellulitis paroxysmal tribulation sepsis SVETLANA hematuria Secondary discharge diagnosis: Anemia Time Spent with Patient Time attestation: Total time spent providing and/or coordinating discharge services: Time spent: Greater than 30 minutes EXAM Constitutional Vitals: Temp Pulse Resp BP Pulse Ox O2 Del Method O2 Flow Rate 99.5 F H 86 16 154/72 96 0 07/04/22 08:00 07/04/22 08:00 07/04/22 08:00 07/04/22 08:00 07/04/22 08:00 07/04/22 08:00 07/03/22 16:00 Discharge Data Data Completed and Pending Labs on day of discharge: Labs from last 24 hours 07/04/22 07/04/22 07/04/22 11:18 05:49 05:49 WBC RBC Hgb Hct MCV MCH MCHC RDW Plt Count MPV Immature Gran % (Auto) Neut % (Auto) Lymph % (Auto) [place] % (Auto) Eos % (Auto) Baso % (Auto) Lymph # (Auto) [place] # (Auto) Eos # (Auto) Baso # (Auto) Seg Neutrophils % 82 H Band Neutrophils % 2 Lymphocytes % 12 L Monocytes % (Manual) 3 Eosinophils % (Manual) 1 Immature Gran # Absolute Neutrophils WBC Morphology Abnormal A Toxic Granulation 1+ A Platelet Estimate Increased A RBC Morphology Normal ESR 81 H Sodium Potassium Chloride Carbon Dioxide Anion Gap BUN Creatinine GFR Calculation Glucose Calcium Total Bilirubin AST ALT Alkaline Phosphatase C-Reactive Protein 9.70 H Total Protein Albumin Globulin Albumin/Globulin Ratio Digoxin 0.7 07/04/22 07/04/22 05:49 05:49 WBC 15.3 H RBC 3.49 L Hgb 11.6 L Hct 34.2 L MCV 98.0 MCH 33.2 MCHC 33.9 RDW 13.5 Plt Count 492 H MPV 9.5 Immature Gran % (Auto) 0.8 H Neut % (Auto) 73.3 Lymph % (Auto) 17.0 [place] % (Auto) 5.4 Eos % (Auto) 3.0 Baso % (Auto) 0.5 Lymph # (Auto) 2.61 [place] # (Auto) 0.82 Eos # (Auto) 0.46 Baso # (Auto) 0.08 Seg Neutrophils % Band Neutrophils % Lymphocytes % Monocytes % (Manual) Eosinophils % (Manual) Immature Gran # 0.13 H Absolute Neutrophils 11.21 H WBC Morphology Toxic Granulation Platelet Estimate RBC Morphology ESR Sodium 135 Potassium 3.8 Chloride 103 Carbon Dioxide 26 Anion Gap 6.0 L BUN 10 Creatinine 0.9 GFR Calculation 91 Glucose 109 H Calcium 7.6 L Total Bilirubin 0.7 AST 18 ALT 22 Alkaline Phosphatase 162 H C-Reactive Protein Total Protein 6.7 Albumin 2.4 L Globulin 4.3 H Albumin/Globulin Ratio 0.6 L Digoxin Discharge Plan Patient/Caregiver Discharge Instructions Activity: increase activity as tolerated Diet: Regular Diet Activity Restrictions/Additional Instructions: Referral to see cardiology in 1 to 2 weeks for paroxysmal atrial fibrillation. Follow-up with PCP in 3 to 7 days. Follow up in [facility] in 5-7 days. Current wound care: Cleanse right lower leg wounds with Vashe. Let dwell for 5 minutes. Pat Dry. Apply silvergel to small open area on calf and area of the ankle. Cover with Adaptic. Cover with ABD (absorbant pad) and secure with Comperm (compression sleeve) or gauze roll. Change every day. Do not get wet in the shower. May shower but cover wounds. Prescriptions: New Eliquis 5 mg Tablet 5 mg PO BID Qty: 60 0RF linezolid 600 mg Tablet 600 mg PO Q12 Qty: 10 0RF metoprolol succinate 25 mg Tablet Extended Release 24 Hr 25 mg PO DAILY Qty: 30 0RF (DME) walker [facility] [place] See Rx Instructions .Route Qty: 1 0RF Rx Instructions: As directed Continued melatonin 10 mg PO QHS PRN (Reason: Insomnia) Discontinued ibuprofen 200 mg Capsule 800 mg PO Q8H PRN (Reason: Pain) prednisone 20 mg tablet 3 tab PO QDAY Rx Instructions: Prescription for 5 days Other Ambulatory Orders: Complete Blood Count Man Dif (Routine) Timeframe: 3 Days Facility: [facility] - Location: Laboratory Ordered By: Wilbert Stearns Primary Care Provider - Referral (NOW) Timeframe: [id number] Location: None Selected Ordered By: Wilbert Staerns Shower Seat/Bench Discharge order (ONCE) Location: None Selected Ordered By: Wilbert Stearns Walker (ONCE) Location: None Selected Ordered By: Wilbert Stearns Follow Up Plan Follow up with: Chuck Becerra MD [Physician] - (Follow up in 5-7 days) Monty Cevallos MD [Physician] - Patient Disposition: Home, Self-Care Plan of Treatment: Plan: Continue ongoing wound care per orders. If Discharged, please arrange for f/u appointment at wound clinic. Thanks Prognosis: Fair Overall status at discharge: patient is progressing back to baseline Discharge Orders: Discharge Order (Routine); Ordered 07/05/22 Ordered By: Wilbert Stearns
[2022-07-04] MEDS: diphenhydrAMINE 25 MG CAPSULE PO PRN (20:20)
[2022-07-05] MEDS: oxyCODONE/APAP 5/325MG TABLET PO PRN ×4 (01:32→14:07)
[2022-07-05 07:30] LABS: Basophils % (Auto) 0.6 % (0.0-2.0); Eosinophils # (Auto) 0.45 K/mcL (0.00-0.70); Eosinophils % (Auto) 2.9 % (0.0-7.0); Hematocrit 35.5 % (40.1-51.0); Hemoglobin 11.8 g/dL (13.7-17.5); Lymphocytes # (Auto) 2.54 K/mcL (1.50-4.80); Lymphocytes % (Auto) 16.2 % (15.5-49.0); Mean Cell Volume 98.9 fL (80.0-100.0); Mean Corpuscular HGB Conc 33.2 g/dL (31.0-36.0); Mean Platelet Volume 9.6 fL (8.8-12.5); Monocytes # (Auto) 0.89 K/mcL (0.10-0.90); Monocytes % (Auto) 5.7 % (1.0-12.0); Neutrophils % (Auto) 73.9 % (38.0-78.0); Platelet Count 570 K/mcL (140-440); RBC 3.59 M/mcL (4.63-6.08); Red Cell Distribution Width 13.3 % (11.5-14.5); WBC 15.7 K/mcL (4.5-11.0)
[2022-07-05] MEDS: 0.9 % SODIUM CHLORIDE 10 ML SYRINGE IV SCH ×2 (08:03→14:08)
[2022-07-05] MEDS: DOCUSATE SODIUM 100 MG CAPSULE PO SCH ×2 (08:03→08:06)
[2022-07-05] MEDS: APIXABAN 5 MG TABLET PO SCH (08:04)
[2022-07-05] MEDS: METOPROLOL SUCCINATE 25 MG TAB.XL.24H PO SCH (08:04)
[2022-07-05] MEDS: LINEZOLID 600 MG TABLET PO SCH (08:04)
[2022-07-05] MEDS: diphenhydrAMINE 25 MG CAPSULE PO PRN (10:31)
[2022-07-05] MEDS: morphine 2 MG/ML VIAL IV PRN (12:06)
[2022-07-05] MEDS: DIGOXIN 125 MCG TABLET PO SCH (14:08)
== END 2022-07-05 14:44 | disposition home or self-care (01) | DRG 872 ==
LOC: ED 09:49 → ICU 13:58 → MEDSUR 06-30 17:47
PROVIDERS: ADMIT Student in an Organized Health Care Education/Training Program; ATTEND Student in an Organized Health Care Education/Training Program